=== PATIENT | female | born 1965 | race Caucasian/White ===

== ENCOUNTER 2017-05-14 21:20 | Inpatient (IN) | payer BC ==
[~2017-05-14] VITALS: Ht 172.7 cm; Wt 69.5 kg
[~2017-05-14 21:20] MED LIST: ALBUAER2 INH; CHOL100040 PO; FERR325T51 PO; FURO-85 PO; GABA-113 PO; SPIR25TA PO
[2017-05-14] MEDS ORDERED: LORAZEPAM 2 MG/ML 1 ML VIAL IV STA (21:43)
[2017-05-14] MEDS ORDERED: SODIUM CHLORIDE 0.9% 1000ML 1,000 ML IV STA (21:44)
[2017-05-14] MEDS ORDERED: OCTREOTIDE IV BOLUS & DRIP IV STA (21:45)
[2017-05-14] MEDS ORDERED: PANTOprazole INJ 80 MG in DEXTROSE 5% 100ML IV STA (21:50)
--- NOTE | 2017-05-14 21:52 | EMERGENCY ROOM VISIT NOTE ---
History Report prepared by Sridevi: Varghese Chaudhry Under the Supervision of: Dr. Jasno Cash M.D. First contact with patient: 21:36 Chief Complaint: GI ASSESSMENT Stated Complaint: VOMITING BLOOD SINCE 1900 History of Present Illness The patient is a 52 year old female who presents to the Emergency Room with complaints of an episode of hematemesis occurring 3 hours ago. The patient states that she started vomiting normally today, but notes that the blood then turned to bright red blood. She reports that she thinks that she threw up 5 cups of blood. 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 She notes that she has been drinking today. She reports that she is not taking any blood thinners and aspirin, but states that she is taking ibuprofen for a fall occurring last week. She notes that she did not hit her head or lose consciousness following her fall. She denies any current nausea, blood in her stool, and headache. Source of History: patient Onset: 3 hours ago Position: abdomen Symptom Intensity: threw up 5 cups of blood Quality: other (hematemesis) Timing: other (an episode) Associated Symptoms: No headache, No nausea Note: She notes that she has been drinking alcohol. She denies any blood in her stool. Review of Systems See HPI for pertinent positives & negatives. A total of 10 systems reviewed and were otherwise negative. Past Medical & Surgical Medical Problems: (1) Cirrhosis of liver with ascites (2) Esophageal varices with bleeding (3) Tumor of uterus (4) Varices of esophagus determined by endoscopy Surgical Problems: (1) H/O: hysterectomy Family History Cancer Hypertension Social History Smoking Status: Current Every Day Smoker Alcohol Use: other Marital Status: Housing Status: lives with significant other Occupation Status: employed Current/Historical Medications Scheduled Gabapentin (Gabapentin), 600 MG PO TID Multivitamin (Multivitamin), 1 TAB PO DAILY [Normanal], 1 DOSE PO DAILY Allergies Coded Allergies: Ciprofloxacin (Unverified Allergy, Unknown, RASH, 10/04/15) Physical Exam Vital Signs Date Time Temp Pulse Resp B/P (MAP) Pulse Ox O2 Delivery O2 Flow Rate FiO2 05/14/17 23:39 114 19 117/71 95 Room Air 05/14/17 22:31 103 24 134/76 93 Room Air 05/14/17 22:22 100 05/14/17 22:03 Room Air 05/14/17 22:03 102 20 109/67 98 05/14/17 21:23 36.6 123 18 116/73 98 Room Air Physical Exam GENERAL: Patient is anxious appearing, tremulous, and in mild distress. Smells of alcohol. HEENT: No acute trauma, normocephalic atraumatic, mucous membranes moist, no nasal congestion, no scleral icterus. NECK: No stridor, no adenopathy, no meningismus, trachea is midline. LUNGS: No dyspnea. Clear to auscultation and equal bilaterally. No wheeze, no rhonchi. HEART: Regular rhythm and tachycardic. No murmurs, rubs, gallops appreciated. ABDOMEN: Soft, nontender, bowel sounds positive, no masses appreciated, no peritonitis. BACK: No midline tenderness, no CVA tenderness EXTREMITIES: Normal motion all extremities, no cyanosis, no edema. NEUROLOGIC: Alert and oriented, no acute motor or sensory deficits, no focal weakness, cranial nerves grossly intact. Fine tremor. SKIN: No rash, no jaundice, no diaphoresis. Medical Decision & Procedures Laboratory Results 05/14/17 21:56 Red Blood Count 2.57, Mean Corpuscular Volume 113.2, Mean Corpuscular Hemoglobin 37.7, Mean Corpuscular Hemoglobin Concent 33.3, Mean Platelet Volume 11.5, Neutrophils (%) (Auto) 68.9, Lymphocytes (%) (Auto) 18.4, Monocytes (%) ( Auto) 10.6, Eosinophils (%) (Auto) 1.2, Basophils (%) (Auto) 0.7, Neutrophils # (Auto) 3.96, Lymphocytes # (Auto) 1.06, Monocytes # (Auto) 0.61, Eosinophils # ( Auto) 0.07, Basophils # (Auto) 0.04 05/14/17 21:56 Test 05/14/17 21:56 05/14/17 22:07 White Blood Count 5.75 K/uL (4.8-10.8) Red Blood Count 2.57 M/uL (4.2-5.4) Hemoglobin 9.7 g/dL (12.0-16.0) Hematocrit 29.1 % (37-47) Mean Corpuscular Volume 113.2 fL (80-100) Mean Corpuscular Hemoglobin 37.7 pg (25-34) Mean Corpuscular Hemoglobin Concent 33.3 g/dl (32-36) Platelet Count 44 K/uL (130-400) Mean Platelet Volume 11.5 fL (7.4-10.4) Neutrophils (%) (Auto) 68.9 % Lymphocytes (%) (Auto) 18.4 % Monocytes (%) (Auto) 10.6 % Eosinophils (%) (Auto) 1.2 % Basophils (%) (Auto) 0.7 % Neutrophils # (Auto) 3.96 K/uL (1.4-6.5) Lymphocytes # (Auto) 1.06 K/uL (1.2-3.4) Monocytes # (Auto) 0.61 K/uL (0.11-0.59) Eosinophils # (Auto) 0.07 K/uL (0-0.5) Basophils # (Auto) 0.04 K/uL (0-0.2) RDW Standard Deviation 55.4 fL (36.4-46.3) RDW Coefficient of Variation 13.7 % (11.5-14.5) Immature Granulocyte % (Auto) 0.2 % Immature Granulocyte # (Auto) 0.01 K/uL (0.00-0.02) Platelet Estimate DECREASED Red Blood Cell Morphology Unremarkable Prothrombin Time 13.5 SECONDS (9.0-12.0) Prothromb Time International Ratio 1.3 (0.9-1.1) Activated Partial Thromboplast Time 25.9 SECONDS (21.0-31.0) Partial Thromboplastin Ratio 1.0 Est Creatinine Clear Calc Drug Dose 91.9 ml/min Estimated GFR () 110.5 Estimated GFR (Non- 95.4 BUN/Creatinine Ratio 21.3 (10-20) Calcium Level 8.1 mg/dl (8.5-10.1) Total Bilirubin 2.6 mg/dl (0.2-1) Direct Bilirubin 1.8 mg/dl (0-0.2) Aspartate Amino Transf (AST/SGOT) 137 U/L (15-37) Alanine Aminotransferase (ALT/SGPT) 33 U/L (12-78) Alkaline Phosphatase 222 U/L (45-117) Total Protein 7.0 gm/dl (6.4-8.2) Albumin 3.0 gm/dl (3.4-5.0) Lipase 202 U/L (73-393) Ethyl Alcohol mg/dL 264.0 mg/dl (0-3) Bedside Hemoglobin 9.9 g/dl (12.0-16.0) Bedside Hematocrit 29 % (37-47) Bedside Sodium 142 mEq/L (135-144) Bedside Potassium 3.4 mEq/L (3.3-5.0) Bedside Chloride 99 mEq/L (101-112) Bedside Total CO2 24 mEq/l (24-31) Anion Gap 23.0 mmol/L (16-25) Bedside Blood Urea Nitrogen 13 mg/dl (7-18) Bedside Creatinine 1.1 mg/dl (0.6-1.3) Bedside Glucose (other) 166 mg/dl (70-99) Bedside Ionized Calcium (Donnell) 1.01 mmol/l (1.12-1.32) Laboratory results as reviewed by me. Medications Administered Medications (Trade) Dose Ordered Sig/Shama Route Start Time Stop Time Status Last Admin Dose Admin Lorazepam (Ativan Inj) 1 mg NOW STAT IV 05/14/17 21:43 05/14/17 21:45 DC 05/14/17 22:12 1 MG Sodium Chloride 1,000 ml @ 999 mls/hr Q1H1M STAT IV 05/14/17 21:44 05/14/17 22:44 DC 05/14/17 22:05 999 MLS/HR Multivitamins 10 ml/Thiamine HCl 100 mg/Folic Acid 1 mg/Sodium Chloride 1,011.2 ml @ 250 mls/ hr Q4H3M ONCE IV 05/14/17 22:00 05/15/17 02:02 05/14/17 22:19 250 MLS/HR Pantoprazole Sodium 80 mg/ Dextrose 120 ml @ 480 mls/hr NOW STAT IV 05/14/17 21:50 05/14/17 22:04 DC 05/14/17 22:23 480 MLS/HR Pantoprazole Sodium 40 mg/ Dextrose 100 ml @ 20 mls/hr Q5H IV 05/14/17 22:00 05/15/17 02:59 05/14/17 22:00 20 MLS/HR Octreotide Acetate (Sandostatin Bolus From Bag) 100 mcg ONE ONCE IV 05/14/17 22:00 05/14/17 22:01 DC 05/14/17 22:00 100 MCG Octreotide Acetate 500 mcg/ Sodium Chloride 105 ml @ 10 mls/hr [id number] IV 05/14/17 22:00 05/15/17 08:29 05/14/17 22:22 10 MLS/HR ECG Indication: other (anemia) Rate (beats per minute): 105 Rhythm: sinus tachycardia Findings: no ectopy, other (No ischemia, QTC 459) ED Course 2137: The patient was evaluated in room C5. A complete history and physical exam was performed. 2142: Pantoprazole Sodium 1 ea IV, Lorazepam 1mg IV 2143: Sodium Chloride 1000 ml @ 999 mls/hr 2144: Octreotide Acetate 1 ea IV 0: Pantoprazole Sodium 80 mg/Dextrose 120 ml @ 480 mls/hr IV 2155: I reevaluated and updated the patient. She is mildly tachycardic and about to get medication. 0: Octreotide Acetate 100mcg IV 2222: I spoke to Dr. Cotton - Gastroenterology, [facility]. He agrees with the current treatment plan and to hold on emergent endoscopy unless the patient's condition worsens. 6: Upon reevaluation, the patient is stable. Discussed results and treatment plan with the patient. She verbalized understanding and agreement with the treatment plan. Discussed the patient's case with Dr. Licona - Hospitalist , [facility]. The patient will be evaluated for further treatment and disposition. 2306: I discussed the patient's case with Dr. Garzon - Lead Application Architect, [facility]. 0001: I rediscussed the case with Dr. Licona. He will transfuse the patient with blood. Medical Decision Differential diagnosis: Etiologies such as diverticulosis, AVM, coagulopathy, colitis, inflammatory bowel disease, malignancy, Delmy-Adams tear, esophagitis, peptic ulcer disease , variceal bleed, gastritis, epistaxis, fissure, hemorrhoids, as well as others were entertained. 52 yr old alcoholic female who admits history of cirrhosis with previous banding of varices. She was drinking today per usual for last 9 months when developed nausea/vomiting around 7 pm. After vomiting several times she ended up vomiting about 5 cups full of bright red blood and came to ED. On arrival mildly tachycardic but also quite tremulous. Smells heavily of etoh though awake, alert, oriented. Given Ativan for both nausea/vomiting and for shakes. Fluids for dehydration. Immediately ordered octreotide and Protonix gtt given history along with getting Type/Cross for 2 PRBC held. Furthermore instructed nursing to obtain at least 2 IVs. Given Banana bag (thiamine/folate) along with fluid bolus as she is tachycardic. She was found to be anemic on initial labs and HR improving. Reviewed with GI who are aware of patient, but given stabilizing vitals, and no further vomiting at this time will hold on emergent endoscopy. Labs further reveal thrombocytopenia as well and liver test abnormalities. I have discussed the case at length with ICU and Hospitalist and plan to go to ICU with repeat H&H prior to this. Will hold Plt transfusion for now as well. Hbg returned 2 points lower and I discussed case with Hospitalist who notes he will order transfusion and admission. Medication Reconcilliation Current Medication List: was personally reviewed by me Blood Pressure Screening Patient's blood pressure: Elevated blood pressure Will be monitored by hospitalist. Consults Time Called: [phone] Consulting Physician: Dr. Cotton - Gastroenterology, [facility] Returned Call: [phone] He agrees with the current treatment plan and to hold on emergent endoscopy unless the patient's condition worsens. Additional Consults: Time Called: [phone] Consulted Physician: Dr. Licona - Hospitalist, [facility] Returned Call: [phone] Additional Comments: Discussed the patient's case. The patient will be evaluated for further treatment and disposition. 0002: I rediscussed the case with Dr. Licona. He will transfuse the patient with blood. Time Called: [phone] Consulted Physician: Dr. Garzon - Lead Application Architect, [facility] Returned Call: [phone] Additional Comments: Discussed the patient's case. Impression Primary Impression: Upper GI bleed Additional Impressions: Anemia Thrombocytopenia Alcohol intoxication Alcoholic cirrhosis Critical Care I have personally spent greater than 35 minutes of critical care time in the direct management of this patient. This was a life/limb threatening event. This includes time spent evaluating patient, direct bedside care, chart review, placing orders, interpretation of diagnostic studies, discussion with consultants, patient, and family members, as well as other required patient management activities. This 35 minutes is in excess of all separately billable procedures. Scribe Attestation The scribe's documentation has been prepared under my direction and personally reviewed by me in its entirety. I confirm that the note above accurately reflects all work, treatment, procedures, and medical decision making performed by me. Departure Information Dispostion Being Evaluated By Hospitalist Referrals Linn Khanna M.D. (PCP) Patient Instructions My [facility] Problem Qualifiers
[2017-05-14] MEDS ORDERED: MULTI-VITAMIN INFUSION INJ 10 ML, THIAMINE HCL INJ 100 MG, FoLIC ACID INJ 1 MG in SODIU... IV ONE (22:00)
[2017-05-14] MEDS ORDERED: OCTREOTIDE ACETATE INJ 500 MCG in NSS 100ML IV SCH (22:00)
[2017-05-14] MEDS ORDERED: PANTOprazole INJ 40 MG in DEXTROSE 5% 100ML IV SCH (22:00)
[2017-05-14] MEDS ORDERED: OCTREOTIDE BOLUS FROM BAG IV ONE (22:00)
[2017-05-14 22:19] LABS: ISTAT CREATININE 1.1 mg/dl (0.6-1.3); ISTAT IONIZED CALCIUM 1.01 mmol/l (1.12-1.32); ISTAT POTASSIUM 3.4 mEq/L (3.3-5.0)
[2017-05-14 22:26] LABS: INR 1.3 (0.9-1.1); PTT PATIENT 25.9 SECONDS (21.0-31.0)
[2017-05-14 22:32] LABS: CALCIUM 8.1 mg/dl (8.5-10.1); CREATININE 0.73 mg/dl (0.60-1.20); POTASSIUM 3.4 mmol/L (3.5-5.1)
[2017-05-14 22:43] LABS: BASO % 0.7 %; BASO ABS # 0.04 K/uL (0-0.2); EOS % 1.2 %; EOS ABS # 0.07 K/uL (0-0.5); HEMATOCRIT 29.1 % (37-47); HEMOGLOBIN 9.7 g/dL (12.0-16.0); IG# 0.01 K/uL (0.00-0.02); LYMPH % 18.4 %; LYMPH ABS # 1.06 K/uL (1.2-3.4); MEAN CELL VOLUME 113.2 fL (80-100); MEAN CORPUSCULAR HEMOGLOBIN 37.7 pg (25-34); MEAN CORPUSCULAR HGB CONC 33.3 g/dl (32-36); MEAN PLATELET VOLUME 11.5 fL (7.4-10.4); MONO % 10.6 %; MONO ABS # 0.61 K/uL (0.11-0.59); NEUT % 68.9 %; NEUT ABS # 3.96 K/uL (1.4-6.5); PLATELET COUNT 44 K/uL (130-400); RED CELL DISTRIBUTION WIDTH CV 13.7 % (11.5-14.5); RED CELL DISTRIBUTION WIDTH SD 55.4 fL (36.4-46.3); WHITE BLOOD COUNT 5.75 K/uL (4.8-10.8)
[2017-05-14] MEDS ORDERED: MULT-506 PO (22:53)
[2017-05-14] MEDS ORDERED: [UNRECOGNIZED DRUG - OTHER] PO (22:53)
[2017-05-14] MEDS ORDERED: NRN600 PO (22:53)
[2017-05-14 23:46] LABS: HEMATOCRIT 22.6 % (37-47); HEMOGLOBIN 7.5 g/dL (12.0-16.0)
[2017-05-15] VITALS (58 sets, daily range): BP systolic 81–202; BP diastolic 56–119; PULSE 94–143; TEMP 36.8–37.7; O2SAT 89–99; Ht 172.7 cm; Wt 69.5 kg
[2017-05-15] MEDS ORDERED: ICU PROTOCOL FOR HYPERGLYCEMIA PRN (00:30)
[2017-05-15] MEDS ORDERED: OCTREOTIDE IV BOLUS & DRIP IV STA (00:30)
[2017-05-15 00:54] LABS: HEMATOCRIT 22.2 % (37-47); HEMOGLOBIN 7.3 g/dL (12.0-16.0)
--- NOTE | 2017-05-15 01:05 | NUR ---
A: PT RECEIVED INTO ROOM E107. PT SELF TRANSFERRED FROM LITER TO BED. MONITOR APPLIED, GOWN CHANGED, VITAL SIGNS AND WEIGHT OBTAINED. ADMISSION PACKET, FALL AGREEMENT, AND CODE WORD COMPLETED. REFER TO EMR FOR FULL HEAD TO TOE ASSESSMENT. PT DENIES COMPLAINTS OF PAIN. PT ORIENTED TO ROOM, CALL LERMA SYSTEM, HOSPITAL ENVIRONMENT, AND UNIT. CALL [facility] WITHIN REACH, CONTINUED CARE BY PRIMARY RN.
[2017-05-15] MEDS ORDERED: MULTI-VITAMIN INFUSION INJ 10 ML, THIAMINE HCL INJ 100 MG, FoLIC ACID INJ 1 MG in SODIU... IV ONE (02:00)
--- NOTE | 2017-05-15 02:00 | NUR ---
PATIENT NOW RECEIVING PRBC TRANSFUSION. MONITORING VS PER POLICY. VS STABLE AT THIS TIME. NO C/O SOB, CHEST PAIN OR FLANK PAIN. CALL [facility] IN REACH. BED IN LOW POSITION. WILL CONTINUE TO MONITOR THIS ICU PATIENT.
[2017-05-15] MEDS: PANTOprazole INJ 40 MG in DEXTROSE 5% 100ML IV SCH ×5 (03:24→20:55)
--- NOTE | 2017-05-15 03:58 | History and Physical ---
History & Physical Date & Time of Service: May 15, 2017 at 03:38. The patient was seen and examined on May 14, 2017 Chief Complaint: Esophageal Varices With Bleeding, Thrombocytopenia Primary Care Physician: Linn Khanna M.D. History of Present Illness Source: patient The patient is a 52-year-old female who presents to the emergency department with a single episode of hematemesis of approximately 5 cups of blood approximately 3 hours prior to arrival. She began vomiting earlier in the day, without blood. She does have a history of alcoholic liver cirrhosis and banded esophageal varices. She reports that she was drinking heavily today. She has not been on aspirin or blood thinners, but is taking ibuprofen for a fall that occurred last week. Past Medical/Surgical History Medical Problems: (1) Cirrhosis of liver with ascites Status: Chronic (2) Tumor of uterus Status: Chronic Family History Cancer Hypertension Social History Smoking Status: Current Every Day Smoker Smokeless Tobacco Use: No Alcohol Use: heavy Drug Use: none Marital Status: Housing status: lives with family Occupational Status: employed Immunizations History of Influenza Vaccine: Unknown History of Tetanus Vaccine?: Unknown History of Pneumococcal: Unknown History of Hepatitis B Vaccine: Unknown Multi-Drug Resistant Organisms History of MDRO: No Allergies Coded Allergies: Ciprofloxacin (Unverified Allergy, Unknown, RASH, 10/04/15) Home Medications Scheduled Gabapentin (Gabapentin), 600 MG PO TID Multivitamin (Multivitamin), 1 TAB PO DAILY [Normanal], 1 DOSE PO DAILY Review of Systems The patient denies chest pain, palpitations, shortness of breath, cough, lower extremity swelling, vision change, hearing change, sore throat, fevers, chills, sweats, weight change, diarrhea or constipation, pelvic pain, blood in urine or stool, dysuria, urinary frequency or urgency, lightheadedness , dizziness, headache, memory loss, loss of consciousness, rash, imbalance, focal or generalized weakness, numbness or tingling in arms or legs, generalized arthralgias or myalgias, or night sweats. The review of systems is otherwise negative other than for that already noted above, and at least 10 systems have been reviewed. Physical Exam Vital Signs Date Time Temp Pulse Resp B/P (MAP) Pulse Ox O2 Delivery O2 Flow Rate FiO2 05/15/17 02:46 37.1 111 16 105/64 (78) 95 Room Air 05/15/17 01:52 37.4 123 18 110/57 95 05/15/17 01:05 37.2 111 14 102/58 98 Room Air 05/15/17 00:45 122 19 95 05/15/17 00:31 106/61 05/15/17 00:15 107 21 05/15/17 00:01 117/68 05/14/17 23:45 113 20 05/14/17 23:39 114 19 117/71 95 Room Air 05/14/17 22:31 103 24 134/76 93 Room Air 05/14/17 22:22 100 05/14/17 22:03 Room Air 05/14/17 22:03 102 20 109/67 98 05/14/17 21:23 36.6 123 18 116/73 98 Room Air The patient is awake, well-developed and adequately nourished, alert and oriented 3, normocephalic and atraumatic, lying in bed and in no acute distress. HEENT--PERRL, EOMI, mucous membranes and oropharynx dry. Neck--supple, no JVD or bruits, thyroid normal, trachea midline, no adenopathy. Heart--normal S1 and S2, no extra beats, no murmurs, rubs or gallops. Lungs--clear bilaterally with good air movement, no respiratory distress, no accessory muscle use. Abdomen--normal bowel sounds and soft, nontender and nondistended, no hernias or masses, no organomegaly. Extremities--no cyanosis, clubbing or edema. There are good distal pulses b/l. Dermatologic--normal skin turgor, normal color, warm and dry, no abnormal lymph nodes, no rash. Neurologic--cranial nerves II through XII grossly intact. Rheumatologic--normal range of motion. Psychiatric--normal affect. Diagnostics Laboratory Results Results Past 24 Hours Test 05/14/17 21:56 05/14/17 22:07 05/14/17 23:35 05/15/17 00:47 Range/Units White Blood Count 5.75 4.8-10.8 K/uL Red Blood Count 2.57 4.2-5.4 M/uL Hemoglobin 9.7 7.5 7.3 12.0-16.0 g/dL Hematocrit 29.1 22.6 22.2 37-47 % Mean Corpuscular Volume 113.2 80-100 fL Mean Corpuscular Hemoglobin 37.7 25-34 pg Mean Corpuscular Hemoglobin Concent 33.3 32-36 g/dl Platelet Count 44 130-400 K/uL Mean Platelet Volume 11.5 7.4-10.4 fL Neutrophils (%) (Auto) 68.9 % Lymphocytes (%) (Auto) 18.4 % Monocytes (%) (Auto) 10.6 % Eosinophils (%) (Auto) 1.2 % Basophils (%) (Auto) 0.7 % Neutrophils # (Auto) 3.96 1.4-6.5 K/uL Lymphocytes # (Auto) 1.06 1.2-3.4 K/uL Monocytes # (Auto) 0.61 0.11-0.59 K/uL Eosinophils # (Auto) 0.07 0-0.5 K/uL Basophils # (Auto) 0.04 0-0.2 K/uL RDW Standard Deviation 55.4 36.4-46.3 fL RDW Coefficient of Variation 13.7 11.5-14.5 % Immature Granulocyte % (Auto) 0.2 % Immature Granulocyte # (Auto) 0.01 0.00-0.02 K/uL Platelet Estimate DECREASED Red Blood Cell Morphology Unremarkable Prothrombin Time 13.5 9.0-12.0 SECONDS Prothromb Time International Ratio 1.3 0.9-1.1 Activated Partial Thromboplast Time 25.9 21.0-31.0 SECONDS Partial Thromboplastin Ratio 1.0 Sodium Level 139 136-145 mmol/L Potassium Level 3.4 3.5-5.1 mmol/L Chloride Level 102 98-107 mmol/L Carbon Dioxide Level 25 21-32 mmol/L Anion Gap 12.0 23.0 16-25 mmol/L Blood Urea Nitrogen 16 7-18 mg/dl Creatinine 0.73 0.60-1.20 mg/dl Est Creatinine Clear Calc Drug Dose 91.9 ml/min Estimated GFR () 110.5 Estimated GFR (Non- 95.4 BUN/Creatinine Ratio 21.3 10-20 Random Glucose 162 70-99 mg/dl Calcium Level 8.1 8.5-10.1 mg/dl Total Bilirubin 2.6 0.2-1 mg/dl Direct Bilirubin 1.8 0-0.2 mg/dl Aspartate Amino Transf (AST/SGOT) 137 15-37 U/L Alanine Aminotransferase (ALT/SGPT) 33 12-78 U/L Alkaline Phosphatase 222 45-117 U/L Total Protein 7.0 6.4-8.2 gm/dl Albumin 3.0 3.4-5.0 gm/dl Lipase 202 73-393 U/L Ethyl Alcohol mg/dL 264.0 0-3 mg/dl Bedside Hemoglobin 9.9 12.0-16.0 g/dl Bedside Hematocrit 29 37-47 % Bedside Sodium 142 135-144 mEq/L Bedside Potassium 3.4 3.3-5.0 mEq/L Bedside Chloride 99 101-112 mEq/L Bedside Total CO2 24 24-31 mEq/l Bedside Blood Urea Nitrogen 13 7-18 mg/dl Bedside Creatinine 1.1 0.6-1.3 mg/dl Bedside Glucose (other) 166 70-99 mg/dl Bedside Ionized Calcium (Donnell) 1.01 1.12-1.32 mmol/l Microbiology Results 05/15/17 MRSA DNA Surveillance Screen - Final, Complete Specimen Negative for MRSA by DNA Probe EKG EKG shows sinus tachycardia at 105 bpm, there are no acute ST-T changes. Impression Assessment and Plan Hematemesis/alcoholic liver cirrhosis/history of banded esophageal varices/mild coagulopathy/progressively worsening anemia-- Hemoglobin was initially 9.7, but on repeat before rehydration decreased to 7.5. Patient did not have any further bleeding while in the ED. She'll be admitted to the intensive care unit. Continue Protonix drip and octreotide drip begun in the emergency department. Banana bag in the morning, followed by IV fluids in the afternoon. Transfuse 2 units PRBCs and keep 2 on hold at all times. Dr. Cotton from gastroenterology is aware of the patient. Dr. Patiño from intensive care medicine is aware of the patient. Place on alcohol withdrawal AWSS program with IV Ativan. Order CT of abdomen and pelvis without contrast to compare to September 2015 for possible progression. Nothing by mouth status Coagulopathy-- INR was 1.3 upon admission Repeat serially in the a.m. If rises further we will give vitamin K. Thrombocytopenia-- Avoid all potential agents that can affect platelet function and number. Serial laboratories to follow. Dehydration/hypokalemia-- Place on normal saline with KCl 20 mEq at 50 ML's per hour. Tobacco use disorder Place on NicoDerm patch Hyperglycemia-- Glucose was 162 on admission Check a hemoglobin A1c Level of Care Critical Care Advanced Directives Existing Living Will: Yes Existing Power of Software Engineer Mobile: Yes Resuscitation Status FULL RESUSCITATION VTE Prophylaxis VTE Risk Assessment Done? Y/N: Yes Risk Level: Moderate Given or contraindicated: SCD's Social Service Consult None Apply Note Total Time: Critical Care 30 - 74 minutes
--- NOTE | 2017-05-15 04:00 | NUR ---
PATIENT NO C/O SOB, CHEST PAIN OR FLANK PAIN. VS ARE STABLE. SEE EMR FOR FULL PHYSICAL ASSESSMENT. CALL [facility] IN REACH. BED IN LOW POSITION. WILL CONTINUE TO MONITOR THIS ICU PATIENT
[2017-05-15] MEDS ORDERED: DiphenhydrAMINE HCL 50 MG/ML VIAL ONE (04:17)
--- NOTE | 2017-05-15 04:18 | NUR ---
S/W PROVIDER KRISTY. GAVE TEMP FLUCTUATIONS. HE ADV GIVE 25MG BENADRYL IV NOW, AND ADD ORDER FOR 25MG BENADRYL IV Q6H PRN. READ BACK ORDER. CONFIRMED OKAY TO TAKE PATIENT TO C/T ONCE TRANSFUSION IS COMPLETE. CONFIRMED. NOTHING FURTHER AT THIS TIME.
[2017-05-15] MEDS ORDERED: DiphenhydrAMINE HCL 50 MG/ML VIAL IV STA (04:24)
[2017-05-15] MEDS ORDERED: DiphenhydrAMINE HCL 50 MG/ML VIAL IV PRN (04:30)
[2017-05-15] MEDS ORDERED: NURSING VERBAL MED ORDER ONE (04:30)
--- NOTE | 2017-05-15 06:00 | NUR ---
PATIENT VOMIT BLOOD. CALLED TO PROVIDER KRISTY. HE WILL ASSESS PATIENT
[2017-05-15] MEDS: OCTREOTIDE ACETATE INJ 500 MCG in NSS 100ML IV SCH ×2 (06:41→16:22)
[2017-05-15] MEDS ORDERED: ONDANSETRON INJ 2 MG/ML 2 ML VIAL IV PRN (06:45)
[2017-05-15] MEDS ORDERED: PROMETHAZINE HCL INJ 25 MG in SODIUM CHLORIDE 0.9% 50ML 50 ML IV PRN (06:45)
[2017-05-15] MEDS ORDERED: PHYTONADIONE INJ 10 MG in SODIUM CHLORIDE 0.9% 50ML 50 ML IV ONE (06:45)
[2017-05-15 07:09] LABS: HEMATOCRIT 27.6 % (37-47); HEMOGLOBIN 9.3 g/dL (12.0-16.0)
[2017-05-15] MEDS: NICOTINE 14 MG/24 HR TDSY TD SCH (07:32)
[2017-05-15 07:35] LABS: CKMB 0.7 ng/ml (0.5-3.6)
[2017-05-15] MEDS: LORAZEPAM 2 MG/ML 1 ML VIAL IV PRN ×4 (07:37→22:45)
[2017-05-15] MEDS ORDERED: LORAZEPAM 2 MG/ML 1 ML VIAL IV ONE (07:45)
[2017-05-15 07:56] LABS: MEAN CORPUSCULAR HEMOGLOBIN 33.3 pg (25-34); PLATELET COUNT 24 K/uL (130-400); WHITE BLOOD COUNT 4.07 K/uL (4.8-10.8)
[2017-05-15] MEDS: NSS + 20MEQ KCL 1000ML 1,000 ML IV SCH ×2 (07:57→16:21)
--- NOTE | 2017-05-15 08:02 | Critical Care Consultation ---
Critical Care Consultation Date of Consultation: May 15, 2017. Attending Physician: Ernie Licona M.D. Reason for Consultation: UPPER GI BLEED/ESOPHAGEAL VARICES. History of Present Illness 52 year old female, continue to use alcohol and smoking, was brought in to the ER with an episode of upper GI bleed/Vomitting blood. According to the patient, had few cups of blood vomitted yesterday evening after the Price dinner and alcoho use. Was transfused one unit of PRBC and hemodynamically stable. She also vomited blood this am, remains hemodynamically stable. Denies any blood in the stool. H/O thrombocytopaenia 44 in the past. This am the platelets are 7 and she will be transfused with one unit of PLT and also FFP. The patient was also evaluated by GI and is scheduled for the EGD this am. Denies any headache or dizziness or chest pain or abdominal pain. Past Medical/Surgical History Alcohol Intoxication/Alcohol abuse. Esophageal varices. Previous H/O EGD and banding. Previous H/O DTs. Alcoholic Cirrhosis of the Liver. Thrombocytopenia. Anemia. Uterine/Pelvic mass. Family History Cancer Hypertension Social History Smoking Status: Current Every Day Smoker Smokeless Tobacco Use: No Alcohol Use: heavy Drug Use: none Marital Status: Housing Status: lives with significant other Occupation Status: employed Allergies Coded Allergies: Ciprofloxacin (Unverified Allergy, Unknown, RASH, 10/04/15) Home Medications Scheduled Gabapentin (Gabapentin), 600 MG PO TID Multivitamin (Multivitamin), 1 TAB PO DAILY [Normanal], 1 DOSE PO DAILY Current Inpatient Medications Current Inpatient Medications Medications (Trade) Dose Ordered Sig/Shama Route Start Time Stop Time Status Last Admin Dose Admin Octreotide Acetate 500 mcg/ Sodium Chloride 105 ml @ 10 mls/hr [id number] IV 05/14/17 22:00 05/15/17 08:29 05/14/17 22:22 10 MLS/HR Potassium Chloride/Sodium Chloride 1,000 ml @ 100 mls/hr Q10H IV 05/15/17 12:30 06/14/17 12:29 Miscellaneous Information (Icu Protocol For Hyperglycemia) 1 ea PRN PRN N/A 05/15/17 00:30 05/17/17 00:29 Multivitamins 10 ml/Thiamine HCl 100 mg/Folic Acid 1 mg/Sodium Chloride 1,011.2 ml @ 100 mls/ hr Q10H7M ONCE IV 05/15/17 02:00 05/15/17 12:06 Lorazepam (Ativan Inj) PRN Dosing -Active Protocol Q1H PRN IV 05/15/17 00:45 06/14/17 00:44 05/15/17 07:37 2 MG Octreotide Acetate 500 mcg/ Sodium Chloride 105 ml @ 10 mls/hr [id number] IV 05/15/17 08:15 06/14/17 08:14 05/15/17 06:41 10 MLS/HR Pantoprazole Sodium 40 mg/ Dextrose 100 ml @ 20 mls/hr Q5H IV 05/15/17 02:30 06/14/17 02:29 05/15/17 07:31 20 MLS/HR Nicotine (Nicoderm Cq 14MG Patch) 1 patch QAM TD 05/15/17 09:00 06/14/17 08:59 05/15/17 07:32 1 PATCH Miscellaneous (Remove Nicoderm Patch) 1 ea HS N/A 05/15/17 21:00 06/14/17 20:59 Diphenhydramine HCl (Benadryl Inj) 25 mg Q6H PRN IV 05/15/17 04:30 06/14/17 04:29 Ondansetron HCl (Zofran Inj) 4 mg Q6H PRN IV 05/15/17 06:45 06/14/17 06:44 Promethazine HCl 25 mg/Sodium Chloride 51 ml @ 204 mls/hr Q6H PRN IV 05/15/17 06:45 06/14/17 06:44 Lorazepam (Ativan Inj) 2 mg NOW ONCE IV 05/15/17 07:45 05/15/17 07:46 Review of Systems Respiratory: + cough Abdomen: + nausea, + vomiting, + GI bleeding Physical Exam Date Time Temp Pulse Resp B/P (MAP) Pulse Ox O2 Delivery O2 Flow Rate FiO2 05/15/17 07:28 37.1 118 19 148/90 95 05/15/17 06:31 112 23 134/87 (103) 94 05/15/17 06:24 149/96 (113) 05/15/17 06:13 104 20 142/88 (106) 92 05/15/17 06:03 124 23 81/56 (64) 95 05/15/17 05:54 95 20 84/63 (70) 95 05/15/17 05:47 109 18 202/119 (146) 94 05/15/17 05:32 37.1 98 17 183/117 (139) 94 05/15/17 05:30 109 17 95 05/15/17 05:02 36.9 110 15 114/71 (85) 95 Room Air 05/15/17 04:55 Room Air 05/15/17 04:46 110 19 127/84 (98) 98 Room Air 05/15/17 04:31 37.0 116 19 118/73 (88) 94 Room Air 05/15/17 04:26 112 19 93 05/15/17 04:16 37.5 122 19 113/72 (86) 93 Room Air 05/15/17 04:10 37.5 118 16 123/66 93 05/15/17 04:06 127 19 123/66 (85) 95 Room Air 05/15/17 03:46 37.0 121 17 107/72 (84) 94 Room Air 05/15/17 03:45 37.0 110 18 107/72 93 05/15/17 03:16 37.7 101 19 110/63 (79) 93 Room Air 05/15/17 02:46 37.1 111 16 105/64 (78) 95 Room Air 05/15/17 02:31 36.9 126 21 112/65 (81) 96 Room Air 05/15/17 02:16 36.8 107 19 107/68 (81) 89 Room Air 05/15/17 02:01 37.0 110 22 106/58 (74) 93 Room Air 05/15/17 01:52 37.4 123 18 110/57 95 05/15/17 01:05 37.2 111 14 102/58 98 Room Air 05/15/17 00:45 122 19 95 05/15/17 00:31 106/61 05/15/17 00:15 107 21 05/15/17 00:01 117/68 05/14/17 23:45 113 20 05/14/17 23:39 114 19 117/71 95 Room Air 05/14/17 22:31 103 24 134/76 93 Room Air 05/14/17 22:22 100 05/14/17 22:03 Room Air 05/14/17 22:03 102 20 109/67 98 05/14/17 21:23 36.6 123 18 116/73 98 Room Air General Appearance: well-appearing, no apparent distress Head: normocephalic Eyes: PERRLA ENT: normal ear exam Neck: normal range of motion, no tenderness, trachea midline, no stridor, supple, no thyromegaly, no lymphadenopathy Respiratory: breath sounds normal, clear to auscultation, clear to percussion, no respiratory distress, no tenderness Cardiovasular: other (Tachycardia) Abdomen: non tender, normal bowel sounds, no rebound, no masses, no guarding, no organomegaly Genitourinary - Female: other (Not examined.) Back: normal range of motion Upper Extremities: no edema, no deformity, normal ROM Lower Extremities: no edema, no deformity, normal ROM Pulses: brachial (R) (2+), brachial (L) (2+), radial (R) (2+), radial (L) (2+) , dorsalis pedis (R) (2+), dorsalis pedis (L) (2+) Neuro: alert, oriented x 3, normal motor exam, normal sensation Psychiatric: normal affect, no suicidal ideation Laboratory Results Last 24 Hours Test 05/14/17 21:56 05/14/17 22:07 05/14/17 23:35 05/15/17 00:47 White Blood Count 5.75 K/uL Red Blood Count 2.57 M/uL Hemoglobin 9.7 g/dL 7.5 g/dL 7.3 g/dL Hematocrit 29.1 % 22.6 % 22.2 % Mean Corpuscular Volume 113.2 fL Mean Corpuscular Hemoglobin 37.7 pg Mean Corpuscular Hemoglobin Concent 33.3 g/dl Platelet Count 44 K/uL Mean Platelet Volume 11.5 fL Neutrophils (%) (Auto) 68.9 % Lymphocytes (%) (Auto) 18.4 % Monocytes (%) (Auto) 10.6 % Eosinophils (%) (Auto) 1.2 % Basophils (%) (Auto) 0.7 % Neutrophils # (Auto) 3.96 K/uL Lymphocytes # (Auto) 1.06 K/uL Monocytes # (Auto) 0.61 K/uL Eosinophils # (Auto) 0.07 K/uL Basophils # (Auto) 0.04 K/uL RDW Standard Deviation 55.4 fL RDW Coefficient of Variation 13.7 % Immature Granulocyte % (Auto) 0.2 % Immature Granulocyte # (Auto) 0.01 K/uL Platelet Estimate DECREASED Red Blood Cell Morphology Unremarkable Prothrombin Time 13.5 SECONDS Prothromb Time International Ratio 1.3 Activated Partial Thromboplast Time 25.9 SECONDS Partial Thromboplastin Ratio 1.0 Sodium Level 139 mmol/L Potassium Level 3.4 mmol/L Chloride Level 102 mmol/L Carbon Dioxide Level 25 mmol/L Anion Gap 12.0 mmol/L 23.0 mmol/L Blood Urea Nitrogen 16 mg/dl Creatinine 0.73 mg/dl Est Creatinine Clear Calc Drug Dose 91.9 ml/min Estimated GFR () 110.5 Estimated GFR (Non- 95.4 BUN/Creatinine Ratio 21.3 Random Glucose 162 mg/dl Calcium Level 8.1 mg/dl Total Bilirubin 2.6 mg/dl Direct Bilirubin 1.8 mg/dl Aspartate Amino Transf (AST/SGOT) 137 U/L Alanine Aminotransferase (ALT/SGPT) 33 U/L Alkaline Phosphatase 222 U/L Total Protein 7.0 gm/dl Albumin 3.0 gm/dl Lipase 202 U/L Ethyl Alcohol mg/dL 264.0 mg/dl Bedside Hemoglobin 9.9 g/dl Bedside Hematocrit 29 % Bedside Sodium 142 mEq/L Bedside Potassium 3.4 mEq/L Bedside Chloride 99 mEq/L Bedside Total CO2 24 mEq/l Bedside Blood Urea Nitrogen 13 mg/dl Bedside Creatinine 1.1 mg/dl Bedside Glucose (other) 166 mg/dl Bedside Ionized Calcium (Donnell) 1.01 mmol/l Test 05/15/17 05:41 05/15/17 06:43 05/15/17 07:41 Bedside Glucose 144 mg/dl Hemoglobin 9.3 g/dL Hematocrit 27.6 % Total Creatine Kinase 223 U/L Creatine Kinase MB 0.7 ng/ml Creatine Kinase MB Ratio 0.3 Troponin I < 0.015 ng/ml Diagnostic Results CT OF THE ABDOMEN: 1. The liver is cirrhotic in morphology and there is evidence of portal hypertension including esophageal varices, splenomegaly, and trace perihepatic ascites. 2. There is nonspecific gallbladder wall thickening, likely related to cirrhosis and ascites. Cholelithiasis is noted. 3. The pancreas is markedly atrophic and there is evidence of chronic pancreatitis. 4. The uterus is enlarged and markedly heterogeneous in attenuation, and this corresponds the mass lesion identified by ultrasound. Large cystic foci are present within the uterus. This likely represents a fibroid uterus with foci of cystic degeneration. Note that the final diagnosis is histologic an underlying neoplasm would be impossible to exclude by imaging. Follow-up with gynecologic surgery is recommended. 5. Additional changes as above. CXR: FINDINGS: Nodular densities projecting over each lower lung are consistent with nipple shadows. The lungs are clear. Cardiac size is normal. Mediastinal contours are normal. There is no pneumothorax or pleural effusion. IMPRESSION: No acute cardiopulmonary findings. Assessment & Plan 52 year old female currently ongoing Alcohol and Tobacco abuse, was brought in with bouts of upper GI Bleed/Esophageal Varices. 1. Upper GI Bleed: Previous H/O Esophageal Varices and banding in the past. The patient is scheduled for EGD and plan of care accordingly. 2. Anemia: secondary to GI bleed. Was transfused three units of PRBC and the 4 th one is going on. Will monitor very closely. 3. Thrombocytopenia: Will transfuse with one unit of Platelets now and if indicated, FFP during the EGD. 4. Alcoholic Cirrhosis of Liver. Was recommended to stop drinking alcohol. 5. DTs. The patient has previous H/O Dts/withdrawal. Was started on Ativan as per the protocol. If indicated, will be started on Precedex. 7. Tobacco abuse/Alcohol abuse.: The patient was educated about quitting to drink and stop smoking. No H/O COPD or SOB. Uses Albuterol on as needed bases. 8. DVT prophylaxis/SCDs. The patient is also on Protonix drip and an Octreotide. 9. The patient is full code. Three peripheral lines. If indicated, will put the triple lumen central line. The patient was explained and answered all the questions. Spent greater than 55 minutes of critical care time, to evaluate and treat the patient, review all the labs and CT and CXR, Discussion with other health care provider and patient herself. DR. Salazar [facility].
[2017-05-15] MEDS ORDERED: SUCCINYLCHOLINE 100MG/5ML SYR IV ONE (08:11)
[2017-05-15] MEDS ORDERED: PROPOFOL IV EMULSION 10 MG/ML 20 ML VIAL IV ONE (08:11)
[2017-05-15] MEDS ORDERED: SUCCINYLCHOLINE CHLORIDE 20 MG/ML 10 ML VIAL IV ONE (08:11)
[2017-05-15] MEDS ORDERED: LIDOCAINE HCL 2% 2 ML VIAL (20MG/ML) ONE (08:11)
[2017-05-15] MEDS ORDERED: FENTANYL CITRATE INJ 50 MCG/1 ML 2 ML VIAL ONE ×2 (08:15→08:47)
--- NOTE | 2017-05-15 08:30 | NUR ---
A/ID: Patient assessment complete, see EMR. Patient is alert and oriented x4. Denies pain at this time, no further emesis this morning. Vital signs stable, see EMR. 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 Patient receiving third unit of PRBC. IV fluids on hold while blood products are infusing. Octreotide and Protonix drips infusing per eMAR. See EMR for labs. Patient evaluated by GI physician for EGD this morning. Patient is going to OR for EGD at this time with OR team.
[2017-05-15 08:38] LABS: MEAN CELL VOLUME 101.5 fL (80-100); MEAN CORPUSCULAR HGB CONC 33.7 g/dl (32-36)
--- NOTE | 2017-05-15 08:56 | GASTROINTESTINAL CONSULTATION ---
DATE OF CONSULTATION: 05/15/2017 TIME: 7:40 a.m. CHIEF COMPLAINT: Hematemesis, anemia, history of alcoholic liver disease, cirrhosis. HISTORY OF PRESENT ILLNESS: Ms. Fox is a 52-year-old white female who has a history of alcoholic liver disease and had been drinking since July. She had undergone EGD with banding in [place] on 2 occasions and she believes was instructed to follow up in 6 months. She is followed by Dr. Jensen in [facility]. The patient developed acute onset of hematemesis where she brought up some bright red blood and clots. She was admitted and placed on octreotide PPI drip. I was contacted by the ICU staff this morning at which point the patient had again vomited several clots and bright red blood. At times the patient was tachycardic, although her blood pressure was maintained. She had received 2 units packed red cells overnight. PAST MEDICAL HISTORY: Significant for cirrhosis with ascites due to alcoholic liver disease. She denies any history of hypertension, diabetes, thyroid matters, renal insufficiency, lung disease and other than a total hysterectomy with oophorectomy she has had no other prior surgeries. ALLERGIES: CIPRO. HOME MEDICATIONS: Gabapentin for peripheral neuropathy thought to be related to alcohol use. She also takes multivitamins and Normanal L1 daily. FAMILY HISTORY: Significant for cancer and hypertension, although there is no chronic liver disease reported by the patient. SOCIAL HISTORY: The patient smokes tobacco, has heavy alcohol use up until the day of admission. She lives with her family and is employed at [employer]. REVIEW OF SYSTEMS: Otherwise noncontributory based on 13-point exam except for mentioned above. The patient reported that she was taking ibuprofen 800 mg daily, but had not been taking aspirin or blood thinners. She denies any dysuria or hematuria or previous melena or bright red blood per rectum. PHYSICAL EXAMINATION: VITAL SIGNS: On admission the patient was afebrile at 36.6, blood pressure 116/73, room air 98%, pulse 123, respirations 18. GENERAL: The patient is awake, alert and oriented x3. HEENT: Sclerae are anicteric, conjunctiva moist. Oral mucosa moist. HEART: Normal S1, S2, normocephalic, atraumatic. NECK: There is normal range of motion. There are no rashes. There is no evidence of supraclavicular adenopathy or thyromegaly. HEART: Normal S1, S2. LUNGS: Clear to auscultation without rales, rhonchi or wheezes. ABDOMEN: Soft, flat, nontender, nondistended with good bowel sounds. There is no rebound or guarding. I do not appreciate hepatosplenomegaly. EXTREMITIES: Without clubbing, cyanosis or edema. RECTAL: Deferred at this time. There is no imaging during this admission. Prior abdominal CT in September of 2015 demonstrated gallbladder wall thickening which was nonspecific, evidence of cirrhosis with heterogeneity, an atrophic pancreas with evidence of chronic pancreatitis and at the time there was evidence of an enlarged uterus that was heterogeneous corresponding to a mass that was on ultrasound. At that time there was only trace perihepatic ascites. PRESENT MEDICATIONS: Nicoderm patch, potassium chloride, octreotide drip, Zofran, promethazine, Benadryl, pantoprazole drip. Her laboratory studies on admission a white count of 5.75 with a hemoglobin of 9.7 and 44,000, platelets. Subsequent blood work demonstrated that the hemoglobin fell to as low as 7.3 at midnight. The patient received 2 units of packed red cells and an additional 2 have been ordered. She also will be receiving FFP for an INR of 1.3 and platelets. On admission her other serum chemistries showed potassium of 3.4, BUN and creatinine were 16 and 0.7, calcium 8.1, total bilirubin 2.6, direct 1.8, AST 137, ALT 33, alkaline phosphatase 222, lipase was 202, albumin 3.0. Total CPK 223, although troponin levels are less than 0.015. Hemoglobin A1c is 5. IMPRESSION AND PLAN: The patient with evidence of portal hypertension and cirrhosis, presumably due to alcoholic liver disease. The details of any prior workup are not available at this time. Prior imaging studies in September of 2015 suggested cirrhotic morphology of the liver with minimal perihepatic ascites. The patient reports two endoscopic banding sessions in [place] in approximately July of 2015 with follow up recommended locally. The differential diagnosis includes bleeding from portal hypertension including esophageal and/or gastric varices, possible portal gastropathy and given her NSAID use, peptic ulcer disease may be a culprit. Would continue with octreotide drip, PPI drip, transfuse as needed. Follow INR and correct if possible. Vitamin K is reasonable, although likely will respond to FFP. Platelet count should be monitored and transfused if below 60,000 during the acute bleeding. At some point Dopplers would be prudent to exclude acute portal vein thrombosis. Additionally, abdominal imaging to exclude new onset of ascites would be helpful and if present consideration for diagnostic paracentesis. Would consider prophylactic antibiotics due to portal hypertension if banding occurs. Further recommendations to follow. Thank you for allowing us to participate in your patient's care.
--- NOTE | 2017-05-15 09:39 | GI REPORT ---
Procedure Date: 05/15/2017 8:30 AM Procedure: Upper GI endoscopy Indications: Hematemesis, Esophageal varices Medicines: General Anesthesia Complications: No immediate complications. Estimated blood loss: None. Estimated Blood Loss: Estimated blood loss: none. Procedure: Pre-Anesthesia Assessment: - Prior to the procedure, a History and Physical was performed, and patient medications and allergies were reviewed. The patient's tolerance of previous anesthesia was also reviewed. The risks and benefits of the procedure and the sedation options and risks were discussed with the patient. All questions were answered, and informed consent was obtained. Prior Anticoagulants: The patient has taken no previous anticoagulant or antiplatelet agents. ASA Grade Assessment: III - A patient with severe systemic disease. After reviewing the risks and benefits, the patient was deemed in satisfactory condition to undergo the procedure. After obtaining informed consent, the endoscope was passed under direct vision. Throughout the procedure, the patient's blood pressure, pulse, and oxygen saturations were monitored continuously. The Scope was introduced through the mouth, and advanced to the second part of duodenum. The upper GI endoscopy was accomplished without difficulty. The patient tolerated the procedure well. Findings: Three columns of non-bleeding grade II varices were found in the middle third of the esophagus, in the lower third of the esophagus and at the gastroesophageal junction, 25 to 37 cm from the incisors. They were 5 mm in largest diameter. Stigmata of recent bleeding were evident and red satish signs were present. Scarring from prior treatment was visible. Four bands were successfully placed with incomplete eradication of varices. There was no bleeding during, and at the end, of the procedure. Estimated blood loss: none. Red blood was found in the gastric fundus. Localized mild inflammation characterized by congestion (edema) and erosions was found in the prepyloric region of the stomach. The examined duodenum was normal. The cardia and gastric fundus were normal on retroflexion. Red blood was found in the gastric fundus. Lavage of the area was performed using a moderate amount of sterile water, resulting in incomplete clearance with fair visualization. Impression: - Recently bleeding grade II esophageal varices. Incompletely eradicated. Banded. - Red blood in the gastric fundus. - Acute gastritis. - Normal examined duodenum. - Red blood in the gastric fundus. - No specimens collected. Recommendation: - [facility] care. - NPO. -Continue octreotide and Protonix ggts -Stool for H pylori - Repeat the upper endoscopy in 4 weeks for retreatment. MD Johnny Alvarez MD 05/15/2017 9:38:13 AM This report has been signed electronically. Note Initiated On: 05/15/2017 8:30 AM I attest to the content of the Intraoperative Record and orders documented therein, exceptions below
--- NOTE | 2017-05-15 10:19 | Anesthesiology Progress Note ---
Anesthesia Post Op Note Date & Time May 15, 2017 at 10:19 Vital Signs Pain Intensity: 0 Vital Signs Past 12 Hours Date Time Temp Pulse Resp B/P (MAP) Pulse Ox O2 Delivery O2 Flow Rate FiO2 05/15/17 10:15 36.6 126 24 144/95 99 Mask 10 05/15/17 10:01 137 24 141/92 (108) 97 Room Air 05/15/17 10:00 36.6 134 28 141/92 93 Room Air Mask 05/15/17 09:54 130 23 147/94 (111) 99 Room Air 05/15/17 09:45 36.6 142 24 148/90 98 Mask 10 05/15/17 08:17 127 29 121/97 (105) 96 Room Air 05/15/17 08:15 37.2 135 24 121/97 96 05/15/17 08:01 37.1 101 21 136/90 (105) 93 Room Air 05/15/17 07:46 104 21 138/82 (100) 93 Room Air 05/15/17 07:45 36.8 100 18 138/82 93 05/15/17 07:31 115 24 147/84 (105) 95 Room Air 05/15/17 07:28 37.1 118 19 148/90 95 05/15/17 07:16 143 15 146/89 (108) 98 Room Air 05/15/17 07:01 109 21 125/83 (97) 93 Room Air 05/15/17 06:31 112 23 134/87 (103) 94 05/15/17 06:24 149/96 (113) 05/15/17 06:13 104 20 142/88 (106) 92 05/15/17 06:03 124 23 81/56 (64) 95 05/15/17 05:54 95 20 84/63 (70) 95 05/15/17 05:47 109 18 202/119 (146) 94 05/15/17 05:32 37.1 98 17 183/117 (139) 94 05/15/17 05:30 109 17 95 05/15/17 05:02 36.9 110 15 114/71 (85) 95 Room Air 05/15/17 04:55 Room Air 05/15/17 04:46 110 19 127/84 (98) 98 Room Air 05/15/17 04:31 37.0 116 19 118/73 (88) 94 Room Air 05/15/17 04:26 112 19 93 05/15/17 04:16 37.5 122 19 113/72 (86) 93 Room Air 05/15/17 04:10 37.5 118 16 123/66 93 05/15/17 04:06 127 19 123/66 (85) 95 Room Air 05/15/17 03:46 37.0 121 17 107/72 (84) 94 Room Air 05/15/17 03:45 37.0 110 18 107/72 93 05/15/17 03:16 37.7 101 19 110/63 (79) 93 Room Air 05/15/17 02:46 37.1 111 16 105/64 (78) 95 Room Air 05/15/17 02:31 36.9 126 21 112/65 (81) 96 Room Air 05/15/17 02:16 36.8 107 19 107/68 (81) 89 Room Air 05/15/17 02:01 37.0 110 22 106/58 (74) 93 Room Air 05/15/17 01:52 37.4 123 18 110/57 95 05/15/17 01:05 37.2 111 14 102/58 98 Room Air 05/15/17 00:45 122 19 95 05/15/17 00:31 106/61 05/15/17 00:15 107 21 05/15/17 00:01 117/68 05/14/17 23:45 113 20 05/14/17 23:39 114 19 117/71 95 Room Air 05/14/17 22:31 103 24 134/76 93 Room Air 05/14/17 22:22 100 Notes Mental Status: alert / awake / arousable, participated in evaluation Pt Amnestic to Procedure: Yes Nausea / Vomiting: adequately controlled Pain: adequately controlled Airway Patency, RR, SpO2: stable & adequate BP & HR: stable & adequate Hydration State: stable & adequate Anesthetic Complications: no major complications apparent
--- NOTE | 2017-05-15 10:30 | NUR ---
A: Patient returned to unit from OR at 0953. Recovery complete, reassumed care of patient. See EMR for vital signs. 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 Protonix and Octreotide drips infusing per eMAR. Multivitamin bag infusing at 100 ml/hr. Repeat labs will be drawn around 1230. Patient denies pain or nausea at this time. Patient's POA (Sada) updated via phone. Call brunner within reach, will continue to monitor closely.
[2017-05-15] MEDS: CEFTRIAXONE SOD INJ 1 GM in DEXTROSE 5% ADD-VANTAGE 50ML 50 ML IV SCH (11:25)
--- NOTE | 2017-05-15 12:00 | NUR ---
A: Vital signs stable. Patient had large, loose eliana stool. Physician aware. Will continue to monitor.
[2017-05-15 12:49] LABS: HEMATOCRIT 30.6 % (37-47); HEMOGLOBIN 10.4 g/dL (12.0-16.0)
--- NOTE | 2017-05-15 14:20 | NUR ---
A: Patient's HR increased to 130s/140s. BP increased to 146/93. Per Dr. Garzon, 2 mg IV Ativan given. Patient incontinent liquid eliana stool. Incontinent of urine, mixed with stool. Unable to appreciate urine output this shift for intake/output.
[2017-05-15 14:46] LABS: PLATELET COUNT 24 K/uL (130-400)
--- NOTE | 2017-05-15 16:00 | NUR ---
A: Assessment completed. Vital signs as documented. Sinus tachycardia on the cardiac/vascular sonographer, rate 110-120's. Pt awake alert and oriented voicing no complaints. No s/s of acute distress. Platelet infusion in progress without evidence of reaction or complication. Sandostatin, Protonix, MVI, IVFs infusing as per MD order. No bleeding noted at this time. Scattered ecchymosis noted, optifoam to sacrum. Significant other at bedside. Call brunner within reach. Will continue to monitor. See EMR nursing assessment documentation for further details.
--- NOTE | 2017-05-15 16:38 | Progress Note ---
Subjective Date of Service: May 15, 2017. Subjective pt was seen post operatively, she is groggy but doing well, she had urgent esophageal varicies banded this am, she received transfusion of blood ffp and platelets. she is seemingly stable but there is concern for alcohol withdrawal Problem List Medical Problems: (1) Alcohol intoxication Status: Acute (2) Alcoholic cirrhosis Status: Acute (3) Anemia Status: Acute (4) Thrombocytopenia Status: Acute (5) Upper GI bleed Status: Acute Review of Systems Constitutional: + problem reported (pts post op sedation prevents full ROS) Objective Vital Signs Date Time Temp Pulse Resp B/P (MAP) Pulse Ox O2 Delivery O2 Flow Rate FiO2 05/15/17 08:15 37.2 135 24 121/97 96 05/15/17 07:45 36.8 100 18 138/82 93 05/15/17 07:28 37.1 118 19 148/90 95 05/15/17 06:31 112 23 134/87 (103) 94 05/15/17 06:24 149/96 (113) 05/15/17 06:13 104 20 142/88 (106) 92 05/15/17 06:03 124 23 81/56 (64) 95 05/15/17 05:54 95 20 84/63 (70) 95 05/15/17 05:47 109 18 202/119 (146) 94 05/15/17 05:32 37.1 98 17 183/117 (139) 94 05/15/17 05:30 109 17 95 05/15/17 05:02 36.9 110 15 114/71 (85) 95 Room Air 05/15/17 04:55 Room Air 05/15/17 04:46 110 19 127/84 (98) 98 Room Air 05/15/17 04:31 37.0 116 19 118/73 (88) 94 Room Air 05/15/17 04:26 112 19 93 05/15/17 04:16 37.5 122 19 113/72 (86) 93 Room Air 05/15/17 04:10 37.5 118 16 123/66 93 05/15/17 04:06 127 19 123/66 (85) 95 Room Air 05/15/17 03:46 37.0 121 17 107/72 (84) 94 Room Air 05/15/17 03:45 37.0 110 18 107/72 93 05/15/17 03:16 37.7 101 19 110/63 (79) 93 Room Air 05/15/17 02:46 37.1 111 16 105/64 (78) 95 Room Air 05/15/17 02:31 36.9 126 21 112/65 (81) 96 Room Air 05/15/17 02:16 36.8 107 19 107/68 (81) 89 Room Air 05/15/17 02:01 37.0 110 22 106/58 (74) 93 Room Air 05/15/17 01:52 37.4 123 18 110/57 95 05/15/17 01:05 37.2 111 14 102/58 98 Room Air 05/15/17 00:45 122 19 95 05/15/17 00:31 106/61 05/15/17 00:15 107 21 05/15/17 00:01 117/68 05/14/17 23:45 113 20 05/14/17 23:39 114 19 117/71 95 Room Air 05/14/17 22:31 103 24 134/76 93 Room Air 05/14/17 22:22 100 05/14/17 22:03 Room Air 05/14/17 22:03 102 20 109/67 98 05/14/17 21:23 36.6 123 18 116/73 98 Room Air Physical Exam General Appearance: WD/WN, + moderate distress Eyes: normal inspection, sclerae normal Respiratory/Chest: no respiratory distress, + decreased breath sounds Cardiovascular: no murmur, + tachycardia Abdomen: normal bowel sounds, non tender, soft Extremities: no pedal edema, no calf tenderness Laboratory Results Last 24 Hours Test 05/14/17 21:56 05/14/17 22:07 05/14/17 23:35 05/15/17 00:47 White Blood Count 5.75 K/uL Red Blood Count 2.57 M/uL Hemoglobin 9.7 g/dL 7.5 g/dL 7.3 g/dL Hematocrit 29.1 % 22.6 % 22.2 % Mean Corpuscular Volume 113.2 fL Mean Corpuscular Hemoglobin 37.7 pg Mean Corpuscular Hemoglobin Concent 33.3 g/dl Platelet Count 44 K/uL Mean Platelet Volume 11.5 fL Neutrophils (%) (Auto) 68.9 % Lymphocytes (%) (Auto) 18.4 % Monocytes (%) (Auto) 10.6 % Eosinophils (%) (Auto) 1.2 % Basophils (%) (Auto) 0.7 % Neutrophils # (Auto) 3.96 K/uL Lymphocytes # (Auto) 1.06 K/uL Monocytes # (Auto) 0.61 K/uL Eosinophils # (Auto) 0.07 K/uL Basophils # (Auto) 0.04 K/uL RDW Standard Deviation 55.4 fL RDW Coefficient of Variation 13.7 % Immature Granulocyte % (Auto) 0.2 % Immature Granulocyte # (Auto) 0.01 K/uL Platelet Estimate DECREASED Red Blood Cell Morphology Unremarkable Prothrombin Time 13.5 SECONDS Prothromb Time International Ratio 1.3 Activated Partial Thromboplast Time 25.9 SECONDS Partial Thromboplastin Ratio 1.0 Sodium Level 139 mmol/L Potassium Level 3.4 mmol/L Chloride Level 102 mmol/L Carbon Dioxide Level 25 mmol/L Anion Gap 12.0 mmol/L 23.0 mmol/L Blood Urea Nitrogen 16 mg/dl Creatinine 0.73 mg/dl Est Creatinine Clear Calc Drug Dose 91.9 ml/min Estimated GFR () 110.5 Estimated GFR (Non- 95.4 BUN/Creatinine Ratio 21.3 Random Glucose 162 mg/dl Calcium Level 8.1 mg/dl Total Bilirubin 2.6 mg/dl Direct Bilirubin 1.8 mg/dl Aspartate Amino Transf (AST/SGOT) 137 U/L Alanine Aminotransferase (ALT/SGPT) 33 U/L Alkaline Phosphatase 222 U/L Total Protein 7.0 gm/dl Albumin 3.0 gm/dl Lipase 202 U/L Ethyl Alcohol mg/dL 264.0 mg/dl Bedside Hemoglobin 9.9 g/dl Bedside Hematocrit 29 % Bedside Sodium 142 mEq/L Bedside Potassium 3.4 mEq/L Bedside Chloride 99 mEq/L Bedside Total CO2 24 mEq/l Bedside Blood Urea Nitrogen 13 mg/dl Bedside Creatinine 1.1 mg/dl Bedside Glucose (other) 166 mg/dl Bedside Ionized Calcium (Donnell) 1.01 mmol/l Test 05/15/17 05:41 05/15/17 06:43 Bedside Glucose 144 mg/dl White Blood Count 4.07 K/uL Red Blood Count 2.82 M/uL Hemoglobin 9.3 g/dL Hematocrit 27.6 % Mean Corpuscular Volume 101.5 fL Mean Corpuscular Hemoglobin 33.3 pg Mean Corpuscular Hemoglobin Concent 33.7 g/dl Platelet Count 24 K/uL Mean Platelet Volume 12.0 fL Estimated Average Glucose 97 mg/dl Hemoglobin A1c 5.0 % Total Creatine Kinase 223 U/L Creatine Kinase MB 0.7 ng/ml Creatine Kinase MB Ratio 0.3 Troponin I < 0.015 ng/ml Assessment and Plan 52 F presentes with concern for esophageal variceal bleed, history of the variceal banding and current alcohol abuse Acute blood loss anemia from esophageal bleeding, Protonix drip and octreotide drip begun in the emergency department. Support blood pressure with IVF Transfused 3 units PRBCs, 1 F[address] Cotton from gastroenterology consult performed EGD and banding Dr. Patiño from intensive care medicine will manage in the icu alcohol withdrawal AWSS program with IV Ativan. Coagulopathy--due to liver failure from alcoholic cirrhosis INR was 1.3 upon admission. follow as may have some consumptive coagulopathy, given FFP Thrombocytopenia--likely from chronic liver disease Dehydration/hypokalemia--replete with normal saline with KCl 20 mEq Tobacco use disorder counselled for cessation, NicoDerm patch Hyperglycemia--follow with ssi DVT prevention will be mechanical given concern for hemorrhage
[2017-05-15 16:45] LABS: HEMATOCRIT 28.4 % (37-47); HEMOGLOBIN 9.7 g/dL (12.0-16.0)
[2017-05-15 16:51] LABS: PLATELET COUNT 39 K/uL (130-400)
[2017-05-15 17:16] LABS: CKMB 1.1 ng/ml (0.5-3.6)
--- NOTE | 2017-05-15 18:00 | NUR ---
A: Pt resting comfortably in bed at this time without voiced complaints. Pt turned and repositioned. Oral care provided. Vital signs as documented. Sinus tachycardia on the cardiac cath lab manager, rate in the 110's. No s/s of acute distress. Call brunner within reach. Will continue to monitor.
--- NOTE | 2017-05-15 20:00 | NUR ---
A: Assessment completed. Vital signs as documented. Sinus tachycardia on the engine monitor, rate 100-110's. Pt awake alert and oriented voicing no complaints. No s/s of acute distress. Sandostatin, Protonix, IVFs infusing as per MD order. One liquid eliana colored BM thus far this shift. Scattered ecchymosis noted, optifoam to sacrum changed. Call brunner within reach. Will continue to monitor. See EMR nursing assessment documentation for further details.
--- NOTE | 2017-05-15 21:00 | NUR ---
A: Ativan 1mg IV PRN administered for AWSS protocol for score of 6, see EMAR. Will continue to monitor
--- NOTE | 2017-05-15 22:00 | NUR ---
A: Pt resting quietly in bed with eyes closed, awakens easily to verbal stimuli. Pt voices no complaints. Vital signs as documented. Sinus tachycardia on the cardiac rehab nurse, rate 100-110's. Sandostatin, Protonix, IVFs as per MD order. I&O as documented. Bed alarm activate for fall prevention. Call brunner within reach. Will continue to monitor.
--- NOTE | 2017-05-15 22:48 | NUR ---
A: Per AWSS protocol for score of 8, IV PRN Ativan 2mg administered. See EMAR. Call brunner within reach. Will continue to monitor.
[2017-05-16] VITALS (16 sets, daily range): BP systolic 100–147; BP diastolic 74–96; PULSE 75–100; TEMP 36.4–37.6; O2SAT 93–97
--- NOTE | 2017-05-16 | NUR ---
PATIENT AWAKE, ALERT AND ORIENTED AT THIS TIME. PATIENT IS BECOMING ANXIOUS THE SHIFT GOES ON. DISCUSSED WITH CORTES CARRASQUILLO. VS ARE STABLE. AT THIS TIME. CALL LERMA IN REACH. BED IN LOW POSITION. WILL CONTINUE TO MONITOR THIS ICU PATIENT
[2017-05-16 00:37] LABS: HEMATOCRIT 31.2 % (37-47); HEMOGLOBIN 10.4 g/dL (12.0-16.0)
[2017-05-16] MEDS: DexMEDEtomidine HCL IV 200 MCG in SODIUM CHLORIDE 0.9% 50ML 48 ML IV PRN ×2 (00:55→08:04)
[2017-05-16] MEDS: PANTOprazole INJ 40 MG in DEXTROSE 5% 100ML IV SCH ×5 (00:56→23:38)
[2017-05-16 01:41] LABS: PLATELET COUNT 40 K/uL (130-400)
--- NOTE | 2017-05-16 02:00 | NUR ---
PATIENT IS NOW CURRENTLY CALMING DOWN. PATIENT ON PRECEDEX DRIP. PATIENT NOW HAS CONKLIN CATHETER. PATENT AND DRAINING. VS ARE STABLE, WNL. CALL LERMA IN REACH. BED IN LOW POSITION. WILL CONTINUE TO MONITOR THIS ICU PATIENT.
[2017-05-16] MEDS: NSS + 20MEQ KCL 1000ML 1,000 ML IV SCH ×3 (02:31→23:38)
[2017-05-16] MEDS: OCTREOTIDE ACETATE INJ 500 MCG in NSS 100ML IV SCH ×3 (03:03→23:33)
--- NOTE | 2017-05-16 04:00 | NUR ---
PATIENT RESTING COMFORTABLY AT THIS TIME. VS ARE STABLE. CALL LERMA IN REACH. BED IN LOW POSITION. WILL CONTINUE TO MONITOR THIS ICU PATIENT.
[2017-05-16 05:26] LABS: HEMATOCRIT 29.2 % (37-47); HEMOGLOBIN 9.8 g/dL (12.0-16.0); MEAN CORPUSCULAR HEMOGLOBIN 32.9 pg (25-34); MEAN CORPUSCULAR HGB CONC 33.6 g/dl (32-36); RED CELL DISTRIBUTION WIDTH CV 22.7 % (11.5-14.5); RED CELL DISTRIBUTION WIDTH SD 77.4 fL (36.4-46.3); WHITE BLOOD COUNT 4.36 K/uL (4.8-10.8)
[2017-05-16 05:27] LABS: INR 1.4 (0.9-1.1); PTT PATIENT 28.3 SECONDS (21.0-31.0)
[2017-05-16 05:37] LABS: ALBUMIN 2.5 gm/dl (3.4-5.0); CALCIUM 7.1 mg/dl (8.5-10.1); CREATININE 0.44 mg/dl (0.60-1.20); POTASSIUM 3.4 mmol/L (3.5-5.1)
[2017-05-16 05:40] LABS: PHOSPHORUS 1.7 mg/dl (2.5-4.9); TOTAL PROTEIN 5.7 gm/dl (6.4-8.2)
[2017-05-16 06:00] LABS: MEAN PLATELET VOLUME 10.9 fL (7.4-10.4); PLATELET COUNT 37 K/uL (130-400)
--- NOTE | 2017-05-16 06:00 | NUR ---
PATIENT SLEEPING AT THIS TIME. PATIENT EASILY AROUSES TO VOICE STIMULATION. VS ARE STABLE, WNL AT THIS TIME. PATIENT TOLERATING CONKLIN AT THIS TIME. CALL LERMA IN REACH. BED IN LOW POSITION. ALARM ENABLED. WILL CONTINUE TO MONITOR THIS PATIENT
[2017-05-16 06:01] LABS: BASO % 0.2 %; BASO ABS # 0.01 K/uL (0-0.2); EOS ABS # 0.13 K/uL (0-0.5); IG# 0.01 K/uL (0.00-0.02); LYMPH ABS # 1.31 K/uL (1.2-3.4); MONO % 11.5 %; NEUT % 55.1 %
--- NOTE | 2017-05-16 06:56 | DIAGNOSTIC IMAGING REPORT ---
CHEST ONE VIEW PORTABLE CLINICAL HISTORY: 52 years-old Female presenting with gi bleed. TECHNIQUE: Portable upright AP view of the chest was obtained. COMPARISON: 10/04/2015. FINDINGS: Cardiomediastinal silhouette normal. Lungs and pleural spaces clear. Osseous structures normal. Upper abdomen normal. IMPRESSION: 1. No acute cardiopulmonary disease. Electronically signed by: Shawn Pearl M.D. 05/16/2017 6:54 AM Dictated Date/Time: 05/16/2017 6:54 AM
--- NOTE | 2017-05-16 08:00 | NUR ---
A/ID: Patient assessment complete, see EMR. Patient awakens to verbal stimuli. Precedex infusing at 0.4 mcg/kg/hr (6.9 ml/hr). Vital signs stable, see EMR. SR on groundwater monitoring technician. Protonix and Octreotide drips infusing per eMAR. NSS with 20 KCl infusing at 100 ml/hr. Physician aware of morning lab results. Call brunner within reach, bed alarm on, will continue to monitor.
[2017-05-16] MEDS: CEFTRIAXONE SOD INJ 1 GM in DEXTROSE 5% ADD-VANTAGE 50ML 50 ML IV SCH (08:04)
[2017-05-16] MEDS: NICOTINE 14 MG/24 HR TDSY TD SCH (08:04)
[2017-05-16] MEDS ORDERED: POTASSIUM PHOSPHATE INJ 21 MMOL in SODIUM CHLORIDE 0.9% 500ML 500 ML IV ONE (08:30)
[2017-05-16] MEDS: MAGNESIUM SULFATE 1GM / D5W 1 GM in PREMIXED IN D5W 100 ML IV SCH ×2 (09:02→09:55)
--- NOTE | 2017-05-16 10:00 | NUR ---
A: Precedex drip titrated down to 0.3 mcg/kg/hr. Vital signs stable, will continue to monitor.
--- NOTE | 2017-05-16 11:12 | Critical Care Progress Note ---
Critical Care Progress Note Date of Service May 16, 2017. ICU Day ICU Day Number: [address] Garzon Subjective The patient was in to DTs with restlessness and also tachycardic in the range of 155 HR. received IV ativan, but lateron was put on Precedex and has improved significantly. Currently, the patient is resting comfortably and no anxiety or agitation and HR is 88 and is oxygenating well in high 90s. Also hed EGD and banding of the ligation of the esophageal varices.and no more bleeding at this time and H/H has been stable. Also the patient received two units of Platelets and current platelets are 37. I questioned patient about thrombocytopenia, which was never worked up in the past. Putting out good urine. Objective General Appearance: well-appearing, no apparent distress Head: normocephalic Eyes: PERRLA ENT: normal ear exam Neck: normal range of motion, no tenderness, trachea midline, no stridor, supple, no thyromegaly, no lymphadenopathy Respiratory: breath sounds normal, clear to auscultation, clear to percussion, no respiratory distress, no tenderness Cardiovasular: S1/S2 heard. Abdomen: non tender, normal bowel sounds, no rebound, no masses, no guarding, no organomegaly Genitourinary - Female: other (Not examined.) Back: normal range of motion Upper Extremities: no edema, no deformity, normal ROM Lower Extremities: no edema, no deformity, normal ROM Pulses: brachial (R) (2+), brachial (L) (2+), radial (R) (2+), radial (L) (2+) , dorsalis pedis (R) (2+), dorsalis pedis (L) (2+) Neuro: alert, oriented x 3, normal motor exam, normal sensation Psychiatric: normal affect, no suicidal ideation Current SOFA Score SOFA Score Response (Comments) Value PaO2/FiO2 (mmHg) < 400 1 SaO2 / FIO2 221 - 301 1 Platelets (x10) < 50 3 Bilirubin (mg/dL) 2.0 - 5.9 2 [place] Coma Score 15 0 Level of Hypotension No Hypotension 0 Creatinine (mg/dL) < 1.2 0 Total 7 Assessment & Plan 52 year old female currently ongoing Alcohol and Tobacco abuse, was brought in with bouts of upper GI Bleed/Esophageal Varices. 1. Upper GI Bleed: S/Post EGD and banding of the esophageal varices. No more episodes of GI Bleed and maintaining the H/H. 2. Anemia: secondary to GI bleed. Was transfused 4 units of PRBC and the. S/ Post EGD and banding of the esophageal varices and no more bleeding. Will monitor very closely. 3. Thrombocytopenia: Was transfused with two units of Platelets and current platelets are 37. Will need to be evaluated by the [employer] for thrombocytopenia. 4. Alcoholic Cirrhosis of Liver. Was recommended to stop drinking alcohol. 5. DTs. The patient has previous H/O Dts/withdrawal. Was started on Ativan as per the protocol. Later on she was also started on Precedex and is seems to be doing better. We had a long discussion about quitting alcohol and she has agreed to that and would like to discuss with social organization professor for detox program. Bedside RN Jo was notified, who is going to discuss with the social organization professor. 7. Tobacco abuse/Alcohol abuse.: The patient was educated about quitting to drink and stop smoking. No H/O COPD or SOB. Uses Albuterol on as needed bases. We are going to discuss with the social organization professor about detox program. The patient has agreed to discuss and get any help, if available. 8. DVT prophylaxis/SCDs. The patient is also on Protonix drip and an Octreotide. 9. The patient is full code. Three peripheral lines. If indicated, will put the triple lumen central line. The patient was explained and answered all the questions. Spent greater than 35 minutes of critical care time. Consults & Procedures Consultants: GI.Johnny Mi MD. Hospitalist: Sal Pelaez MD. Procedures: EGD: Johnny Cotton. Data Medications: Current Inpatient Medications Medications (Trade) Dose Ordered Sig/Shama Route Start Time Stop Time Status Last Admin Dose Admin Potassium Chloride/Sodium Chloride 1,000 ml @ 100 mls/hr Q10H IV 05/15/17 12:30 06/14/17 12:29 05/16/17 02:31 100 MLS/HR Miscellaneous Information (Icu Protocol For Hyperglycemia) 1 ea PRN PRN N/A 05/15/17 00:30 05/17/17 00:29 Lorazepam (Ativan Inj) PRN Dosing -Active Protocol Q1H PRN IV 05/15/17 00:45 06/14/17 00:44 05/15/17 22:45 2 MG Octreotide Acetate 500 mcg/ Sodium Chloride 105 ml @ 10 mls/hr [id number] IV 05/15/17 08:15 06/14/17 08:14 05/16/17 03:03 10 MLS/HR Pantoprazole Sodium 40 mg/ Dextrose 100 ml @ 20 mls/hr Q5H IV 05/15/17 02:30 06/14/17 02:29 05/16/17 06:02 20 MLS/HR Nicotine (Nicoderm Cq 14MG Patch) 1 patch QAM TD 05/15/17 09:00 06/14/17 08:59 05/16/17 08:04 1 PATCH Miscellaneous (Remove Nicoderm Patch) 1 ea HS N/A 05/15/17 21:00 06/14/17 20:59 05/15/17 20:03 1 EA Diphenhydramine HCl (Benadryl Inj) 25 mg Q6H PRN IV 05/15/17 04:30 06/14/17 04:29 Ondansetron HCl (Zofran Inj) 4 mg Q6H PRN IV 05/15/17 06:45 06/14/17 06:44 05/15/17 11:25 4 MG Promethazine HCl 25 mg/Sodium Chloride 51 ml @ 204 mls/hr Q6H PRN IV 05/15/17 06:45 06/14/17 06:44 Ceftriaxone Sodium 1 gm/ Dextrose 50 ml @ 100 mls/hr Q24H IV 05/15/17 10:00 05/21/17 10:29 05/16/17 08:04 100 MLS/HR Dexmedetomidine HCl 200 mcg/ Sodium Chloride 50 ml @ 0 mls/hr Q0M PRN IV 05/16/17 00:27 05/20/17 00:26 05/16/17 08:04 6.9 MLS/HR Potassium Phosphate 21 mmol/ Sodium Chloride 507 ml @ 88 mls/hr ONE ONCE IV 05/16/17 08:30 05/16/17 14:15 05/16/17 09:02 88 MLS/HR Thiamine HCl 100 mg/Syringe 10 ml @ 2 mls/min Q24H IV 05/16/17 11:00 06/15/17 10:59 Folic Acid 1 mg/ Syringe 10 ml @ 5 mls/min Q24H IV 05/16/17 11:00 06/15/17 10:59 Vital Signs: Date Time Temp Pulse Resp B/P (MAP) Pulse Ox O2 Delivery O2 Flow Rate FiO2 05/16/17 08:02 36.7 81 14 107/81 (90) 93 Room Air 05/16/17 08:00 Room Air 05/16/17 07:01 90 15 121/88 (99) 95 Room Air 05/16/17 06:02 100 17 108/83 (91) 96 05/16/17 04:02 36.7 87 17 121/83 (96) 95 05/16/17 04:00 94 Room Air 05/16/17 03:02 92 18 130/89 (103) 94 05/16/17 02:02 92 19 147/96 (113) 95 05/16/17 01:02 94 21 147/96 (113) 95 05/16/17 00:02 37.6 99 22 138/93 (108) 95 05/15/17 23:59 94 Room Air 05/15/17 23:01 94 22 150/103 (119) 96 05/15/17 22:30 112 25 149/104 (111) 95 05/15/17 22:01 106 22 157/101 (123) 95 05/15/17 21:01 104 21 138/95 (111) 95 05/15/17 20:01 102 25 153/98 (112) 94 05/15/17 20:00 37.7 05/15/17 20:00 94 Room Air 05/15/17 19:01 113 24 152/96 (109) 96 05/15/17 18:01 116 28 130/90 (99) 94 05/15/17 17:01 122 27 140/93 (99) 93 05/15/17 16:39 120 21 141/91 (108) 93 05/15/17 16:39 37.4 119 28 141/91 91 05/15/17 16:01 115 23 123/86 (98) 93 05/15/17 16:00 94 Room Air 05/15/17 16:00 37.4 05/15/17 15:55 37.4 120 24 123/86 94 05/15/17 15:29 37.4 120 23 130/88 93 05/15/17 15:14 37.4 119 28 133/91 95 05/15/17 14:01 128 23 146/93 (110) 96 Room Air 05/15/17 13:31 126 26 130/88 (102) 93 Room Air 05/15/17 13:01 120 22 137/88 (104) 92 Room Air 05/15/17 12:01 110 21 140/88 (105) 98 Oxymask 3.0 05/15/17 12:00 Room Air 05/15/17 11:31 114 26 137/93 (108) 96 Oxymask 3.0 05/15/17 11:01 110 25 145/93 (110) 94 Oxymask 3.0 Laboratory Results: Last 24 Hours Test 05/15/17 11:32 05/15/17 12:37 05/15/17 16:31 05/15/17 17:28 Bedside Glucose 142 mg/dl Hemoglobin 10.4 g/dL 9.7 g/dL Hematocrit 30.6 % 28.4 % Platelet Count 24 K/uL 39 K/uL Total Creatine Kinase 203 U/L Creatine Kinase MB 1.1 ng/ml Creatine Kinase MB Ratio 0.5 Troponin I 0.083 ng/ml Urine Color DK YELLOW Urine Appearance CLEAR Urine pH 6.5 Urine Specific [place] 1.018 Urine Protein NEG Urine Glucose (UA) NEG Urine Ketones NEG Urine Occult Blood 2+ Urine Nitrite NEG Urine Bilirubin NEG Urine Urobilinogen NEG Urine Leukocyte Esterase TRACE Urine WBC (Auto) 1-5 /hpf Urine RBC (Auto) 0-4 /hpf Urine Hyaline Casts (Auto) 1-5 /lpf Urine Epithelial Cells (Auto) >30 /lpf Urine Bacteria (Auto) 2+ Test 05/15/17 18:02 05/16/17 00:29 05/16/17 00:30 05/16/17 05:07 Bedside Glucose 138 mg/dl 129 mg/dl Hemoglobin 10.4 g/dL 9.8 g/dL Hematocrit 31.2 % 29.2 % Platelet Count 40 K/uL 37 K/uL White Blood Count 4.36 K/uL Red Blood Count 2.98 M/uL Mean Corpuscular Volume 98.0 fL Mean Corpuscular Hemoglobin 32.9 pg Mean Corpuscular Hemoglobin Concent 33.6 g/dl Mean Platelet Volume 10.9 fL Neutrophils (%) (Auto) 55.1 % Lymphocytes (%) (Auto) 30.0 % Monocytes (%) (Auto) 11.5 % Eosinophils (%) (Auto) 3.0 % Basophils (%) (Auto) 0.2 % Neutrophils # (Auto) 2.40 K/uL Lymphocytes # (Auto) 1.31 K/uL Monocytes # (Auto) 0.50 K/uL Eosinophils # (Auto) 0.13 K/uL Basophils # (Auto) 0.01 K/uL RDW Standard Deviation 77.4 fL RDW Coefficient of Variation 22.7 % Immature Granulocyte % (Auto) 0.2 % Immature Granulocyte # (Auto) 0.01 K/uL Large Platelets 1+ Anisocytosis PRESENT Stomatocytes 1+ Prothrombin Time 14.1 SECONDS Prothromb Time International Ratio 1.4 Activated Partial Thromboplast Time 28.3 SECONDS Partial Thromboplastin Ratio 1.1 Sodium Level 136 mmol/L Potassium Level 3.4 mmol/L Chloride Level 105 mmol/L Carbon Dioxide Level 27 mmol/L Anion Gap 4.0 mmol/L Blood Urea Nitrogen 7 mg/dl Creatinine 0.44 mg/dl Est Creatinine Clear Calc Drug Dose 152.5 ml/min Estimated GFR () 135.5 Estimated GFR (Non- 116.9 BUN/Creatinine Ratio 15.8 Random Glucose 112 mg/dl Calcium Level 7.1 mg/dl Phosphorus Level 1.7 mg/dl Magnesium Level 1.3 mg/dl Total Bilirubin 2.8 mg/dl Direct Bilirubin 1.8 mg/dl Aspartate Amino Transf (AST/SGOT) 76 U/L Alanine Aminotransferase (ALT/SGPT) 22 U/L Alkaline Phosphatase 121 U/L Total Protein 5.7 gm/dl Albumin 2.5 gm/dl Test 05/16/17 07:49 Troponin I 0.026 ng/ml
[2017-05-16] MEDS: THIAMINE HCL INJ 100 MG in SYRINGE 9 ML IV SCH (11:21)
[2017-05-16] MEDS: FoLIC ACID INJ 1 MG in SYRINGE 9.8 ML IV SCH (11:21)
--- NOTE | 2017-05-16 11:44 | NUR ---
A: Precedex drip has been titrated down to 0.1 mcg/kg/hr. Patient awake, alert and oriented x4. Denies anxiety or pain. Patient has expressed interest in attending rehab for substance abuse. manager study aware and provided patient with information; will continue to follow.
--- NOTE | 2017-05-16 11:46 | NUR ---
Case Management Note- Met with patient and s/o, Erasmo, at bedside. Patient gives permission to include Erasmo in discharge planning (Phone:[phone]). Patient lives adjacent to her s/o in a double wide home. She is independent at baseline. Patient is employed and drives. Role of [employer] explained. Discussed outpatient vs inpatient drug and alcohol rehab. Patient verbalizes interest in both. List of outpatient facilities provided. Also provided them with multiple brochures of inpatient drug and alcohol rehab facilities. Encouraged them to look at each and choose a few different facilities. Once a decision is made, referrals will be placed. Discussed this with the ICU Typists Supervisor team. Informed them that once patient picks a facility, Case Management will call to determine if a Psych consult is needed. Patient sister, Sada, is [employer] and a Nurse Practitioner. Paperwork is on patient chart. Will continue to follow.
--- NOTE | 2017-05-16 12:00 | NUR ---
A: Patient removed her own Nicotine patch, declined to have another placed.
--- NOTE | 2017-05-16 14:00 | NUR ---
A: Patient OOB to chair with assist of 1. Patient sat up for about 30 minutes then went back to bed. Precedex drip off at this time. Vital signs stable, see EMR. Will continue to monitor.
[2017-05-16 14:11] LABS: HEMOGLOBIN 10.4 g/dL (12.0-16.0); MEAN CELL VOLUME 99.3 fL (80-100); MEAN CORPUSCULAR HEMOGLOBIN 34.4 pg (25-34); NUCLEATED RED BLOOD CELL ABS 0.03 K/uL (0-0); RED CELL DISTRIBUTION WIDTH CV 22.3 % (11.5-14.5); WHITE BLOOD COUNT 3.68 K/uL (4.8-10.8)
[2017-05-16 14:12] LABS: MEAN CORPUSCULAR HGB CONC 34.7 g/dl (32-36); MEAN PLATELET VOLUME 10.4 fL (7.4-10.4); PLATELET COUNT 36 K/uL (130-400)
--- NOTE | 2017-05-16 14:19 | Progress Note ---
Subjective Date of Service: May 16, 2017. Subjective this pt is sleepy and otherwise has no focal abdominal pain, she is requiring precedex for withdrawal, did not respond well to ativan Problem List Medical Problems: (1) Alcohol intoxication Status: Acute (2) Alcoholic cirrhosis Status: Acute (3) Anemia Status: Acute (4) Thrombocytopenia Status: Acute (5) Upper GI bleed Status: Acute Review of Systems Constitutional: + weakness, + fatigue, No fever, No chills Respiratory: No cough, No shortness of breath Cardiac: No chest pain, No edema Abdomen: No pain, No nausea, No vomiting, No diarrhea Psychiatric: + depression symptoms, + substance abuse, No anxiety Objective Vital Signs Date Time Temp Pulse Resp B/P (MAP) Pulse Ox O2 Delivery O2 Flow Rate FiO2 05/16/17 14:00 79 20 121/81 (94) 95 Room Air 05/16/17 12:00 Room Air 05/16/17 11:53 36.6 90 19 100/75 (83) 96 Room Air 05/16/17 10:00 75 16 103/74 (84) 93 Room Air 05/16/17 09:01 78 19 116/78 (91) 93 Room Air 05/16/17 08:02 36.7 81 14 107/81 (90) 93 Room Air 05/16/17 08:00 Room Air 05/16/17 08:00 Room Air 05/16/17 07:01 90 15 121/88 (99) 95 Room Air 05/16/17 06:02 100 17 108/83 (91) 96 05/16/17 04:02 36.7 87 17 121/83 (96) 95 05/16/17 04:00 94 Room Air 05/16/17 03:02 92 18 130/89 (103) 94 05/16/17 02:02 92 19 147/96 (113) 95 05/16/17 01:02 94 21 147/96 (113) 95 05/16/17 00:02 37.6 99 22 138/93 (108) 95 05/15/17 23:59 94 Room Air 05/15/17 23:01 94 22 150/103 (119) 96 05/15/17 22:30 112 25 149/104 (111) 95 05/15/17 22:01 106 22 157/101 (123) 95 05/15/17 21:01 104 21 138/95 (111) 95 05/15/17 20:01 102 25 153/98 (112) 94 05/15/17 20:00 37.7 05/15/17 20:00 94 Room Air 05/15/17 19:01 113 24 152/96 (109) 96 05/15/17 18:01 116 28 130/90 (99) 94 05/15/17 17:01 122 27 140/93 (99) 93 05/15/17 16:39 120 21 141/91 (108) 93 05/15/17 16:39 37.4 119 28 141/91 91 05/15/17 16:01 115 23 123/86 (98) 93 05/15/17 16:00 94 Room Air 05/15/17 16:00 37.4 05/15/17 15:55 37.4 120 24 123/86 94 05/15/17 15:29 37.4 120 23 130/88 93 05/15/17 15:14 37.4 119 28 133/91 95 Physical Exam General Appearance: WD/WN, + mild distress Eyes: normal inspection, sclerae normal Neck: supple, no JVD Respiratory/Chest: chest non-tender, lungs clear, normal breath sounds Cardiovascular: regular rate, rhythm, no murmur Abdomen: normal bowel sounds, soft Extremities: no pedal edema, no calf tenderness Neurologic/Psychiatric: alert, oriented x 3 Laboratory Results Last 24 Hours Test 05/15/17 16:31 05/15/17 17:28 05/15/17 18:02 05/16/17 00:29 Hemoglobin 9.7 g/dL Hematocrit 28.4 % Platelet Count 39 K/uL Total Creatine Kinase 203 U/L Creatine Kinase MB 1.1 ng/ml Creatine Kinase MB Ratio 0.5 Troponin I 0.083 ng/ml Urine Color DK YELLOW Urine Appearance CLEAR Urine pH 6.5 Urine Specific [place] 1.018 Urine Protein NEG Urine Glucose (UA) NEG Urine Ketones NEG Urine Occult Blood 2+ Urine Nitrite NEG Urine Bilirubin NEG Urine Urobilinogen NEG Urine Leukocyte Esterase TRACE Urine WBC (Auto) 1-5 /hpf Urine RBC (Auto) 0-4 /hpf Urine Hyaline Casts (Auto) 1-5 /lpf Urine Epithelial Cells (Auto) >30 /lpf Urine Bacteria (Auto) 2+ Bedside Glucose 138 mg/dl 129 mg/dl Test 05/16/17 00:30 05/16/17 05:07 05/16/17 07:49 05/16/17 14:01 Hemoglobin 10.4 g/dL 9.8 g/dL Hematocrit 31.2 % 29.2 % Platelet Count 40 K/uL 37 K/uL White Blood Count 4.36 K/uL Red Blood Count 2.98 M/uL Mean Corpuscular Volume 98.0 fL Mean Corpuscular Hemoglobin 32.9 pg Mean Corpuscular Hemoglobin Concent 33.6 g/dl Mean Platelet Volume 10.9 fL Neutrophils (%) (Auto) 55.1 % Lymphocytes (%) (Auto) 30.0 % Monocytes (%) (Auto) 11.5 % Eosinophils (%) (Auto) 3.0 % Basophils (%) (Auto) 0.2 % Neutrophils # (Auto) 2.40 K/uL Lymphocytes # (Auto) 1.31 K/uL Monocytes # (Auto) 0.50 K/uL Eosinophils # (Auto) 0.13 K/uL Basophils # (Auto) 0.01 K/uL RDW Standard Deviation 77.4 fL RDW Coefficient of Variation 22.7 % Immature Granulocyte % (Auto) 0.2 % Immature Granulocyte # (Auto) 0.01 K/uL Large Platelets 1+ Anisocytosis PRESENT Stomatocytes 1+ Prothrombin Time 14.1 SECONDS Prothromb Time International Ratio 1.4 Activated Partial Thromboplast Time 28.3 SECONDS Partial Thromboplastin Ratio 1.1 Sodium Level 136 mmol/L Potassium Level 3.4 mmol/L Chloride Level 105 mmol/L Carbon Dioxide Level 27 mmol/L Anion Gap 4.0 mmol/L Blood Urea Nitrogen 7 mg/dl Creatinine 0.44 mg/dl Est Creatinine Clear Calc Drug Dose 152.5 ml/min Estimated GFR () 135.5 Estimated GFR (Non- 116.9 BUN/Creatinine Ratio 15.8 Random Glucose 112 mg/dl Calcium Level 7.1 mg/dl Phosphorus Level 1.7 mg/dl Magnesium Level 1.3 mg/dl Total Bilirubin 2.8 mg/dl Direct Bilirubin 1.8 mg/dl Aspartate Amino Transf (AST/SGOT) 76 U/L Alanine Aminotransferase (ALT/SGPT) 22 U/L Alkaline Phosphatase 121 U/L Total Protein 5.7 gm/dl Albumin 2.5 gm/dl Troponin I 0.026 ng/ml Assessment and Plan 52 F presentes with concern for esophageal variceal bleed, history of the variceal banding and current alcohol abuse Acute blood loss anemia from esophageal bleeding, Protonix drip and octreotide drip begun in the emergency department. continuing protonix Support blood pressure with IVF Transfused 3 units PRBCs, 1 FFP and [address] Cotton from gastroenterology consult performed EGD and banding Dr. Patiño from intensive care medicine will manage in the icu alcohol withdrawal AWSS program with IV Ativan, precedex. Coagulopathy--due to liver failure from alcoholic cirrhosis was given FFP Gamma strep uti on rocephin Thrombocytopenia- remains low ans stablelikely from chronic liver disease Dehydration/hypokalemia--replete with normal saline with KCl 20 mEq Tobacco use disorder counselled for cessation, NicoDerm patch, discussed stopping alcohol pt states she will think about it Hyperglycemia--follow with ssi, A1C does not support diabetes DVT prevention will be mechanical given concern for hemorrhage
[2017-05-16 14:38] LABS: CALCIUM 7.3 mg/dl (8.5-10.1); CREATININE 0.42 mg/dl (0.60-1.20); PHOSPHORUS 3.3 mg/dl (2.5-4.9)
[2017-05-16] MEDS ORDERED: LORAZEPAM 0.5 MG TAB PO PRN (15:30)
[2017-05-16] MEDS ORDERED: LORAZEPAM 2 MG/ML 1 ML VIAL IV PRN ×2 (15:30)
--- NOTE | 2017-05-16 15:38 | GASTROENTEROLOGY PROGRESS NOTE ---
DATE: 05/16/2017 DATE: 05/16/2017 SUBJECTIVE: The patient did well overnight. Chart reviewed, patient examined. The patient has not had any hematemesis, coffee-ground emesis, melena or bright red blood per rectum or reports of stool output by the patient. She is awake, alert and oriented x3. The patient continues on a PPI and octreotide drips and n.p.o. status. REVIEW OF SYSTEMS: Otherwise noncontributory based and 13-point exam except for mentioned above. PHYSICAL EXAMINATION: VITAL SIGNS: At the present time 2 p.m. blood pressure 121/81, respirations 20, heart rate 79, 95% on room air. The patient has been afebrile. HEAD, EYES, EARS, NOSE, AND THROAT: Sclerae are anicteric. Conjunctivae moist. Oral mucosa moist. HEART: Normal S1, S2. LUNGS: Clear to auscultation. ABDOMEN: Soft, flat, nontender, nondistended with normal active bowel sounds, no rebound or guarding. I do not appreciate hepatosplenomegaly. EXTREMITIES: Without clubbing, cyanosis or edema. RECTAL EXAMINATION: Deferred. The patient's blood count has remained stable and is currently 10.4. She received a total of 3 units of packed red blood cells, 2 units of platelets and 1 FFP since admission. LABORATORY STUDIES: White count is 3.68, platelets 36,000, hemoglobin of 10.4. On admission it was 9.7, it fell to 7.5. The patient's electrolytes today BUN and creatinine are 7 and 0.42, potassium 4.0, calcium is slightly low at 7.3. Alkaline phosphatase minimally elevated at 121. AST 76, ALT 22. Admission transaminases were consistent with acute alcoholic hepatitis with 3:1 AST to ALT ratio. IMPRESSION AND PLAN: The patient with history of alcoholic cirrhosis and acute variceal bleed, underwent banding yesterday with 4 bands placed. There has been no ongoing bleeding. The patient is awake, alert and oriented. RECOMMENDATIONS: Would continue observation for DT precautions, I believe it is reasonable to advance the patient's diet with clear liquids as tolerated and perhaps can advance later this evening to full liquids. Would not advance to solid food until sometime tomorrow. Would continue the Protonix and octreotide drips, but can begin to consider eliminating octreotide over the next 24-48 hours. The patient should be on a nonselective beta blocks as blood pressure will tolerate. She will also need repeat EGD in 3-4 weeks for additional banding. Would obtain a stool once available for H. pylori antibody. Continue daily hemoglobin counts. All questions answered.
[2017-05-16] MEDS ORDERED: LORAZEPAM INJ 1 MG in SYRINGE 0.5 ML IV PRN (15:45)
[2017-05-16] MEDS ORDERED: LORAZEPAM INJ 0.5 MG in SYRINGE 0.75 ML IV PRN (15:45)
--- NOTE | 2017-05-16 17:45 | NUR ---
Patient transferred from ICU into [facility]-. Pt transferred via wheelchair, family are present. Pt has cell phone and cell phone groundwater programs director, clothes, medications and chart at the time of transfer. A/O x4, appears calm. Quiet and cooperative. Lungs are diminished on RA. Tolerated clear liquid diet well, denies N/V. No emesis. Crain draining clear yellow. No BM. Ecchymosis to left side of body. OOB x1 assist. R FA IV NS +20K @ 100 and protonix gtt @ 20cc/Hr. Sandastation in R AC @ 20cc/Hr. L hand SL. Oriented to room, encouraged to rign for assist. Bed alarm is on.
[2017-05-16 18:54] LABS: HEMATOCRIT 29.5 % (37-47)
[2017-05-16] MEDS: CHLORDIAZEPOXIDE 25 MG CAP PO SCH (21:57)
[2017-05-17 00:07] VITALS: BP 143/89; PULSE 80; TEMP 37.1; O2SAT 96
[2017-05-17] MEDS: PANTOprazole INJ 40 MG in DEXTROSE 5% 100ML IV SCH ×5 (04:50→23:54)
[2017-05-17] MEDS: CHLORDIAZEPOXIDE 25 MG CAP PO SCH ×3 (04:50→21:34)
--- NOTE | 2017-05-17 07:05 | DIAGNOSTIC IMAGING REPORT ---
CHEST ONE VIEW PORTABLE CLINICAL HISTORY: gi bleed dyspnea COMPARISON STUDY: 05/16/2017 FINDINGS: The bones soft tissues and hemidiaphragms are normal. The cardiomediastinal silhouette is normal. The lungs are clear. The pulmonary vasculature is normal. IMPRESSION: Negative chest. No change from the prior study. Several pre-existing right rib fractures unchanged The above report was generated using voice recognition software. It may contain grammatical, syntax or spelling errors. Electronically signed by: Arslan Kimble M.D. 05/17/2017 7:04 AM Dictated Date/Time: 05/17/2017 7:03 AM
[2017-05-17 07:18] LABS: HEMATOCRIT 30.4 % (37-47); HEMOGLOBIN 10.3 g/dL (12.0-16.0); MEAN CELL VOLUME 100.3 fL (80-100); MEAN CORPUSCULAR HGB CONC 33.9 g/dl (32-36); RED CELL DISTRIBUTION WIDTH CV 21.7 % (11.5-14.5); RED CELL DISTRIBUTION WIDTH SD 78.2 fL (36.4-46.3); WHITE BLOOD COUNT 4.33 K/uL (4.8-10.8)
[2017-05-17 07:28] LABS: INR 1.3 (0.9-1.1); PTT PATIENT 27.2 SECONDS (21.0-31.0)
[2017-05-17 07:33] LABS: MEAN PLATELET VOLUME 11.2 fL (7.4-10.4); PLATELET COUNT 37 K/uL (130-400)
[2017-05-17 07:43] LABS: ALBUMIN 2.6 gm/dl (3.4-5.0); CALCIUM 7.4 mg/dl (8.5-10.1); CREATININE 0.44 mg/dl (0.60-1.20); POTASSIUM 3.8 mmol/L (3.5-5.1)
[2017-05-17 07:44] LABS: BASO % 0.5 %; BASO ABS # 0.02 K/uL (0-0.2); EOS % 3.5 %; EOS ABS # 0.15 K/uL (0-0.5); IG# 0.02 K/uL (0.00-0.02); LYMPH % 22.9 %; LYMPH ABS # 0.99 K/uL (1.2-3.4); MONO % 10.6 %; MONO ABS # 0.46 K/uL (0.11-0.59); NEUT ABS # 2.69 K/uL (1.4-6.5)
--- NOTE | 2017-05-17 07:45 | NUR ---
case management note. per previous briefcase sewer, Patient lives adjacent to her s/o in a double wide home. She is independent at baseline. Patient is employed and drives. Patient verbalizes interest in both outpatient vs inpatient drug and alcohol rehab. List of outpatient facilities provided. Also provided with multiple brochures of inpatient drug and alcohol rehab facilities. Once a decision is made, referrals will be placed. Patient sister, Sada, is POA and a Nurse Practitioner. Paperwork is on patient chart. pt transferred to room 259. report to unit briefcase sewer. appropriate briefcase sewer to follow.
[2017-05-17 07:50] LABS: PHOSPHORUS 2.3 mg/dl (2.5-4.9); TOTAL PROTEIN 5.8 gm/dl (6.4-8.2)
[2017-05-17 07:54] VITALS: BP 142/91; PULSE 91; TEMP 37.2; O2SAT 95
[2017-05-17] MEDS: NICOTINE 14 MG/24 HR TDSY TD SCH (08:13)
--- NOTE | 2017-05-17 08:49 | Hospitalist Progress Note ---
Hospitalist Progress Note Date of Service May 17, 2017. (Sarah Khan PA-C) Subjective Pt evaluation today including: conversation w/ patient, physical exam, chart review, lab review, review of studies Pain: None PO Intake: Good Voiding: no voiding problems The patient was seen and examined this morning. Pt reports doing ok today. Her significant other and her sister Sada are present at bedside. Patient denies any shaking, headache, fatigue or feeling of withdrawal at this time. Crain catheter was removed this morning and she had one episode of incontinence, however has voided a second time at this point and reports having good control of her bladder function. Patient has been drinking and eating without any difficulty. Discussion was held regarding possible discharge and services. Patient's sister , Sada, supportive of a inpatient rehabilitation stay for alcohol use. During my visit with the patient she is unsure of what her wants and needs are at this time, and initially wanted to go home. Case management to provide information of inpatient rehabilitation available in our area. Additional Comments: Constitutional: No fever, sweats or chills Eyes: No diplopia, no worsening or blurred vision ENT: normal hearing, no trouble swallowing Respiratory: No cough, sputum, dyspnea at rest or on exertion Cardiovascular: No chest pain, tightness or palpitations Abdomen: No pain, nausea, vomiting, diarrhea or constipation Musculoskeletal: + Lower back pain status post fall, feels sore. No joint pain , calf pain, swelling Neurologic: No weakness, numbness/tingling, or balance problems, no shaking (Sarah Khan PA-C) Objective Vital Signs Date Time Temp Pulse Resp B/P (MAP) Pulse Ox O2 Delivery O2 Flow Rate FiO2 05/17/17 07:55 Room Air 05/17/17 07:54 37.2 91 18 142/91 (108) 95 Room Air 05/17/17 00:07 37.1 80 18 143/89 (107) 96 Room Air 05/17/17 00:00 Room Air 05/16/17 16:50 36.4 94 18 126/88 (101) 93 Room Air 05/16/17 16:15 36.9 88 22 97 05/16/17 16:00 Room Air 05/16/17 15:30 36.9 88 22 129/93 (105) 97 Room Air 05/16/17 14:00 79 20 121/81 (94) 95 Room Air 05/16/17 12:00 Room Air 05/16/17 11:53 36.6 90 19 100/75 (83) 96 Room Air 05/16/17 10:00 75 16 103/74 (84) 93 Room Air 05/16/17 09:01 78 19 116/78 (91) 93 Room Air (Sarah Khan PA-C) Physical Exam Notes: General: awake, alert, no apparent distress, flat affect, minimally verbally involved in conversation. Head: Normocephalic, atraumatic ENT: PERRL, EOMI, no pharyngeal exudate, mucous membranes moist Chest: Clear to auscultation, on room air, no adventitious breath sounds Cardiac: Regular rate and rhythm, no murmur, no JVD, normal peripheral pulses, good capillary refill Abdominal: NABS x 4 quadrants, soft, nontender to palpation, no rebound, guarding or tenderness Extremities: Normal inspection, no peripheral edema or erythema, calfs nontender to palpation Psych: Normal mood and affect Neuro: AAO x 3, speech is clear, no peripheral sensory deficits, no asterixis (Sarah Khan PA-C) Laboratory Results Last 24 Hours Test 05/16/17 11:27 05/16/17 14:01 05/16/17 18:35 05/16/17 20:06 Bedside Glucose 147 mg/dl 140 mg/dl White Blood Count 3.68 K/uL Red Blood Count 3.02 M/uL Hemoglobin 10.4 g/dL 10.0 g/dL Hematocrit 30.0 % 29.5 % Mean Corpuscular Volume 99.3 fL Mean Corpuscular Hemoglobin 34.4 pg Mean Corpuscular Hemoglobin Concent 34.7 g/dl RDW Standard Deviation 78.0 fL RDW Coefficient of Variation 22.3 % Platelet Count 36 K/uL Mean Platelet Volume 10.4 fL Nucleated RBC Absolute Count (auto) 0.03 K/uL Nucleated Red Blood Cells % 0.9 % Sodium Level 137 mmol/L Potassium Level 4.0 mmol/L Chloride Level 106 mmol/L Carbon Dioxide Level 26 mmol/L Anion Gap 5.0 mmol/L Blood Urea Nitrogen 7 mg/dl Creatinine 0.42 mg/dl Est Creatinine Clear Calc Drug Dose 159.8 ml/min Estimated GFR () 137.5 Estimated GFR (Non- 118.7 BUN/Creatinine Ratio 16.2 Random Glucose 105 mg/dl Calcium Level 7.3 mg/dl Phosphorus Level 3.3 mg/dl Magnesium Level 2.1 mg/dl Test 05/17/17 06:57 05/17/17 07:46 White Blood Count 4.33 K/uL Red Blood Count 3.03 M/uL Hemoglobin 10.3 g/dL Hematocrit 30.4 % Mean Corpuscular Volume 100.3 fL Mean Corpuscular Hemoglobin 34.0 pg Mean Corpuscular Hemoglobin Concent 33.9 g/dl Platelet Count 37 K/uL Mean Platelet Volume 11.2 fL Neutrophils (%) (Auto) 62.0 % Lymphocytes (%) (Auto) 22.9 % Monocytes (%) (Auto) 10.6 % Eosinophils (%) (Auto) 3.5 % Basophils (%) (Auto) 0.5 % Neutrophils # (Auto) 2.69 K/uL Lymphocytes # (Auto) 0.99 K/uL Monocytes # (Auto) 0.46 K/uL Eosinophils # (Auto) 0.15 K/uL Basophils # (Auto) 0.02 K/uL RDW Standard Deviation 78.2 fL RDW Coefficient of Variation 21.7 % Immature Granulocyte % (Auto) 0.5 % Immature Granulocyte # (Auto) 0.02 K/uL Giant Platelets 1+ Anisocytosis PRESENT Prothrombin Time 14.0 SECONDS Prothromb Time International Ratio 1.3 Activated Partial Thromboplast Time 27.2 SECONDS Partial Thromboplastin Ratio 1.0 Sodium Level 136 mmol/L Potassium Level 3.8 mmol/L Chloride Level 106 mmol/L Carbon Dioxide Level 23 mmol/L Anion Gap 7.0 mmol/L Blood Urea Nitrogen 6 mg/dl Creatinine 0.44 mg/dl Est Creatinine Clear Calc Drug Dose 152.5 ml/min Estimated GFR () 135.5 Estimated GFR (Non- 116.9 BUN/Creatinine Ratio 14.2 Random Glucose 96 mg/dl Calcium Level 7.4 mg/dl Phosphorus Level 2.3 mg/dl Magnesium Level 1.9 mg/dl Total Bilirubin 3.4 mg/dl Direct Bilirubin 2.2 mg/dl Aspartate Amino Transf (AST/SGOT) 81 U/L Alanine Aminotransferase (ALT/SGPT) 24 U/L Alkaline Phosphatase 130 U/L Total Protein 5.8 gm/dl Albumin 2.6 gm/dl Bedside Glucose 108 mg/dl (Sarah Khan PA-C) Assessment and Plan 52 F presentes with concern for esophageal variceal bleed, history of the variceal banding and current alcohol abuse Acute blood loss anemia from esophageal bleeding, Protonix drip and octreotide drip begun in the emergency department. - continuing protonix IV BID - can transition to PO - Off octreotide drip now - IVF can be turned off at this point at pt with good oral intake - Transfused 3 units PRBCs, 1 FFP and 1 platelets - Dr. Cotton from gastroenterology consulted- performed EGD and banding on - Continue on librium 25 mg Q8H and taper off starting tomorrow to 25 mg BID. - Patient does not feel somnolent and tired with Librium on board. Off Precedex drip, can use Ativan IV when necessary but has not needed it since starting Librium. Coagulopathy--due to liver failure from alcoholic cirrhosis - was given 1 U FFP - Liver enzymes improving, INR= 1.3 Alcohol use -Discussion was held regarding cessation today, case management to assist with discharge planning as the patient may benefit from inpatient rehabilitation for alcohol use. Support from sister provided today Pt likely to discharge to [facility] in [place] for inpatient rehabilitation tomorrow Gamma strep uti - on rocephin day #3 - cipro allergy so will switch to Amoxicillin 500 mg Q12 x 4 more days to complete a 7d course Thrombocytopenia - remains low ans stable likely from chronic liver disease Dehydration/hypokalemia - Improved, BMP stable Tobacco use disorder counselled for cessation - NicoDerm patch Hyperglycemia- - Can stop insulin sliding scale at this time - glucose remains stable. - A1C does not support diabetes DVT ppx: teds, scds, no chemical d/t concern for hemorrhage CODE STATUS: Full code Disposition: Patient from home, likely discharge tomorrow to [facility] for inpatient alcohol rehabilitation (Sarah Khan PA-C) PA Physician Supervision Note: I interviewed and examined the patient. Discussed with Sarah Khan PAC and agree with findings and plan as documented in the note. Any exceptions or clarifications are listed here: None Patient has recovered from her esophageal varices bleed secondary to cirrhosis secondary to alcohol abuse. Her sister he was recovering alcoholic and her significant other are at the bedside and we discussed abstinence and likely referral to inpatient treatment. We instructed the family and the patient achieved to make these referrals were self. Patient is mentating well on oral Librium and has no signs of withdrawal currently Blood pressure is mildly elevated to 140/90 she has no tremor she's not tachycardic her heart is regular her affect is flat she is awake alert appropriate Esophageal variceal bleed requiring transfusion and is emergent banding by Dr. Cotton, the patient will be out on a Librium taper with recommendations for abstinence from alcohol and strong consideration for inpatient rehabilitation Documented By: Sal Pelaez (Sal Pelaez M.D.)
--- NOTE | 2017-05-17 08:58 | NUR ---
ID Note: Pt. is A&Ox4. vss. denies pain. tolerates a clear liquid diet well. IV's infusing per MD order. stood at bedside with contact guardx2. D/C'd Crain cath patient due to void by 1615. D/C planning per social work supervisor note. Will continue to monitor patient.
[2017-05-17] MEDS: CEFTRIAXONE SOD INJ 1 GM in DEXTROSE 5% ADD-VANTAGE 50ML 50 ML IV SCH (09:20)
[2017-05-17] MEDS: THIAMINE HCL INJ 100 MG in SYRINGE 9 ML IV SCH (10:35)
[2017-05-17] MEDS: FoLIC ACID INJ 1 MG in SYRINGE 9.8 ML IV SCH (10:35)
[2017-05-17] MEDS: OCTREOTIDE ACETATE INJ 500 MCG in NSS 100ML IV SCH ×2 (10:35→21:29)
--- NOTE | 2017-05-17 12:38 | NUR ---
Case Management- Met with patient and family in room. Patient reports she is willing to go to inpatient treatment. She gave me permission to contact [facility] and sent referral of clinical documentation on \her behalf this was completed. Did place a call to [facility] on a counselor to call me back. CM following Addendum: 05/17/17 at 1410 by Nereida Jones SERV spoke with ruddy from [facility] they have the paperwork that was faxed over nursing was reviewing the paperwork currently. Provided patients room phone number for patient interview. Per Ruddy if patient is agreeable and their medical odirector signs off on this she potentially can be accepted tomorrow. Addendum: 05/17/17 at 1516 by Nereida Jones SERV spoke with eber at [facility] the medical staff has approved she is accepted pending a phone interview the attempted ppto do the interview patient asked to call them back later. Per eber she can accept tomorrow and provide transport once this is complete her [pcontact is [phone] ext [phone]
[2017-05-17] MEDS: NSS + 20MEQ KCL 1000ML 1,000 ML IV SCH (13:21)
[2017-05-17] MEDS ORDERED: NURSING VERBAL MED ORDER ONE (13:30)
--- NOTE | 2017-05-17 14:01 | NUR ---
executive advisor [facility]: Follow up appointments arranged and info added to the DC instructions - "Please, follow up at Dr. Khanna's office with Raeann TOBAR on SundayMay 25 at 10:10 am. *If you need to change this appointment you can call the office at [phone]. Please, follow up at [facility] with Dr. Jensen on SundayMay 30 at 10:20 am. *This office is located at [address] [place] [address]. If you need to change this appointment you can call the office at [phone]."
[2017-05-17 15:22] VITALS: BP 133/94; PULSE 85; TEMP 36.9; O2SAT 97
--- NOTE | 2017-05-17 20:21 | GASTROENTEROLOGY PROGRESS NOTE ---
DATE: 05/17/2017 SUBJECTIVE: Chart reviewed and the patient examined. The patient is doing well, has not had any bowel movements, nausea, vomiting, hematemesis or coffee-ground emesis. There were no features to suggest DTs. The patient is hungry and would like to try and advance her diet tomorrow. She has been tolerating clear liquids by her history. Historically, the patient had been on nadolol, but had stopped this for unclear reasons before seeing Dr. Jensen in the GI clinic. CURRENT MEDICATIONS: Include Librium 25 mg every 8 hours, p.r.n. lorazepam, thiamine, folic acid, dexmedetomidine, nicotine patch, octreotide drip, Protonix drip, p.r.n. promethazine and Zofran. REVIEW OF SYSTEMS: Otherwise noncontributory based on 13-point exam except for mentioned above. The patient denies melena, bright red blood per rectum, coffee-ground emesis or hematemesis. LABORATORY STUDIES: Show that her hemoglobin is stable at 10.3; she has not required any additional blood transfusions including packed cells, FFP or platelets. Platelet count is low at 37,000, white count 4.3. Serum chemistry -BUN and creatinine are 6 and 0.4, blood sugars satisfactory in the low 100 range. Her total and direct bilirubin of 3.4 with direct 2.2, AST 81, ALT 24, alkaline phosphatase 130, her phosphorus level is low at 2.3. PHYSICAL EXAMINATION: VITAL SIGNS: Today - afebrile at 36.9, blood pressure 133/94, respirations 18, pulse 85, 97% on room air. GENERAL: The patient is awake, alert and oriented x3. HEENT: Sclerae mildly icteric. Conjunctivae moist. Oral mucosa moist. HEART: Normal S1, S2. LUNGS: Clear to auscultation. ABDOMEN: Soft, nontender, nondistended with normal bowel sounds. There is no evidence of rebound or guarding. I do not appreciate ascites or shifting dullness. EXTREMITIES: Without clubbing, cyanosis or edema. RECTAL: Deferred. IMPRESSION AND PLAN: The patient with a history of alcoholic cirrhosis with a markedly elevated alcohol level on admission. Regarding this aspect, inpatient drug and alcohol rehabilitation, I believe this would be worthwhile of strict avoidance of alcohol in the future may preserve liver function and reduce portal pressure and a chance of subsequent bleeding. She will; however, need banding in approximately 3-4 weeks to continue esophageal variceal eradication and this will be arranged as an outpatient at [facility]. It may be reasonable to start her on nadolol, titrated to 25% reduction in heart rate for the purposes of reducing portal pressures. Regarding the octreotide, would maintain that drip for approximately 24 hours more and then can be discontinued. The PPI drip can be converted to oral therapy tomorrow and her diet can be slowly advanced initially with a soft diet and advanced as tolerated. Continue DT prophylaxis. The patient's phosphorus level is low and would correct and monitor for return to a normal range. All questions answered for the patient. The patient will follow with Dr. Jensen upon discharge from the hospital.
[2017-05-17 23:24] VITALS: BP 128/85; PULSE 82; TEMP 37.3; O2SAT 98
[2017-05-18] MEDS: OCTREOTIDE ACETATE INJ 500 MCG in NSS 100ML IV SCH (05:50)
[2017-05-18] MEDS: CHLORDIAZEPOXIDE 25 MG CAP PO SCH (05:50)
[2017-05-18] MEDS: PANTOprazole INJ 40 MG in DEXTROSE 5% 100ML IV SCH (05:50)
[2017-05-18 07:47] VITALS: BP 134/87; PULSE 74; TEMP 37; O2SAT 97
[2017-05-18 08:06] LABS: HEMATOCRIT 33.9 % (37-47); HEMOGLOBIN 11.2 g/dL (12.0-16.0); MEAN CELL VOLUME 102.1 fL (80-100); MEAN CORPUSCULAR HEMOGLOBIN 33.7 pg (25-34); RED CELL DISTRIBUTION WIDTH CV 21.4 % (11.5-14.5); RED CELL DISTRIBUTION WIDTH SD 78.3 fL (36.4-46.3)
[2017-05-18 08:08] LABS: PLATELET COUNT 41 K/uL (130-400)
[2017-05-18 08:13] LABS: INR 1.3 (0.9-1.1)
[2017-05-18 08:36] LABS: BASO % 0.5 %; BASO ABS # 0.02 K/uL (0-0.2); CALCIUM 7.8 mg/dl (8.5-10.1); CREATININE 0.6 mg/dl (0.60-1.20); EOS ABS # 0.12 K/uL (0-0.5); IG# 0.02 K/uL (0.00-0.02); LYMPH ABS # 1.08 K/uL (1.2-3.4); MONO % 12.3 %; MONO ABS # 0.49 K/uL (0.11-0.59); NEUT % 56.7 %; NEUT ABS # 2.27 K/uL (1.4-6.5); POTASSIUM 3.5 mmol/L (3.5-5.1)
[2017-05-18 08:44] LABS: PHOSPHORUS 3.2 mg/dl (2.5-4.9); TOTAL PROTEIN 6.5 gm/dl (6.4-8.2)
[2017-05-18] MEDS ORDERED: AMOXICILLIN 500 MG CAP PO SCH (09:00)
[2017-05-18] MEDS: NICOTINE 14 MG/24 HR TDSY TD SCH (09:35)
[2017-05-18] MEDS ORDERED: PANT1TAB4 PO ×2 (11:05→15:41)
[2017-05-18] MEDS ORDERED: NICO14DI5 TD ×2 (11:05→15:41)
[2017-05-18] MEDS ORDERED: THIA100T27 PO ×2 (11:05→15:41)
[2017-05-18] MEDS ORDERED: FLV400 PO ×2 (11:05→15:41)
[2017-05-18] MEDS ORDERED: AMX500 PO ×2 (11:05→15:41)
[2017-05-18] MEDS ORDERED: LBR25 PO ×2 (11:05→15:41)
--- NOTE | 2017-05-18 11:05 | Discharge Instructions ---
Discharge Instructions Date of Service May 18, 2017. Admission Reason for Admission: Esophageal Varices With Bleeding, Thrombocytopenia Discharge Discharge Diagnosis / Problem: Esophageal Varices with bleeding, thrombocytopenia, etoh abuse Discharge Goals Goal(s): Decrease discomfort, Improve function, Increase independence, Improve disease control Activity Recommendations Activity Level: Up Ad Wilda Lifting Limitations: none, gradually increase as tolerated Exercise/Sports Limitations: none, gradually increase as tolerated Shower/Bathe: no limitations . Additional Information Patient informed of condition: Yes Advance Directives: Yes DNR: No Level of Care: Acute Rehab (alcohol ) Communicable Disease: No Prognosis: Stable Instructions / Follow-Up Instructions / Follow-Up You were admitted to [facility] with esophageal varices with acute bleed requiring banding, thrombocytopenia, acute elevate liver enzymes, and alcohol abuse. During your stay here you were treated with intravenous fluids, medications for gastric healing, and required multiple units of blood for transfusion. Imaging studies which were completed include EGD and banding of esophageal varicies. Medications: You were started on a medication called librium for alcohol withdrawal. Take Librium 25 mg as directed below: Take next dose this evening 05/18. Take 25 mg twice daily x 2 more days starting 05/19. Take 25 mg once at bedtime x 3 more days starting on 05/21 and finish last dose on 05/23. Take Nadolol 20 mg daily in the morning for portal hypertension. Continue taking multivitamin, folic acid, and thiamine as supplements to a normal diet. DO NOT DRINK ALCOHOL. You are being discharged to [facility] for inpatient rehabilitation for alcohol use. Appointments: Follow up with your Primary Care Provider within 1 week. Follow up with gastroenterology within 2-3 weeks. Current Hospital Diet Patient's current hospital diet: Regular Diet Discharge Diet Recommended Diet: Regular Diet (Advance as tolerated, starting with a mechanical soft diet) Procedures Procedures Performed: Esophagogastroduodenoscopy Pending Studies Studies pending at discharge: no Laboratory Results Hemoglobin A1c Test 05/15/17 06:43 Range/Units Estimated Average Glucose 97 mg/dl Hemoglobin A1c 5.0 4.5-5.6 % Medical Emergencies . Who to Call and When: Medical Emergencies: If at any time you feel your situation is an emergency, please call 911 immediately. . Non-Emergent Contact Non-Emergency issues call your: Primary Care Provider Call Non-Emergent contact if: you have a fever, your pain is not controlled, you have any medication questions other concerns with your health. Call 911 or go directly to the Emergency Department if you experience any of the following: Chest pain, chest tightness, shortness of breath, abdominal pain , lightheadedness, dizziness, gastrointestinal bleeding, or have any other concerns regarding your health. . Past History Medical & Surgical History: (1) Esophageal varices with bleeding (2) Alcoholic cirrhosis (3) Alcohol intoxication (4) Thrombocytopenia (5) Cirrhosis of liver with ascites . "Provider Documentation" section prepared by Molly Khan. . Core Measure Problem Core Measures: None
[2017-05-18 12:01] VITALS: BP 134/87; PULSE 74; TEMP 37; O2SAT 97
[2017-05-18] MEDS ORDERED: NADO20TA PO ×2 (12:13→15:41)
--- NOTE | 2017-05-18 12:39 | NUR ---
Case Management: spoke with Odilia from [facility] this am. Pt did do her phone interview with them. Odilia wanted to know how pt was doing with her diet as she was still on clears and how she was doing physically as she c/o being weak. I spoke with Molly Hogue and got an update that I provided to Odilia but she stated their medical office worker would like to have an updated progress note from the doctor. Molly is going to provide her assessment of pt and I will fax it to [facility] and await their determination.
--- NOTE | 2017-05-18 12:48 | Discharge Summary ---
Discharge Summary Date of Service May 18, 2017. Discharge Summary Admission Date: May 15, 2017 at 00:29 Discharge Date: May 18, 2017 Discharge Disposition: Rehab ([facility] alcohol inpatient rehab) Principal Diagnosis: Esophageal varices s/p banding, Elevated transaminases, etoh abuse Problems/Secondary Diagnoses: Acute blood loss anemia from esophageal bleeding Coagulopathy--due to liver failure from alcoholic cirrhosis Alcohol abuse Gamma strep uti Thrombocytopenia Dehydration Hypokalemia Tobacco use disorder counselled for cessation Hyperglycemia- resolved Immunizations: Have You Had Influenza Vaccine: Unknown History of Tetanus Vaccine?: Unknown History of Pneumococcal: Unknown History of Hepatitis B Vaccine: Unknown Procedures: CHEST ONE VIEW PORTABLE 05/16/17 FINDINGS: Cardiomediastinal silhouette normal. Lungs and pleural spaces clear. Osseous structures normal. Upper abdomen normal. IMPRESSION: 1. No acute cardiopulmonary disease. CHEST ONE VIEW PORTABLE 05/17/17 FINDINGS: The bones soft tissues and hemidiaphragms are normal. The cardiomediastinal silhouette is normal. The lungs are clear. The pulmonary vasculature is normal. IMPRESSION: Negative chest. No change from the prior study. Several pre-existing right rib fractures unchanged EGD 05/15/17 Impression: Recently bleeding grade II esophageal varices. Incompletely eradicated. Banded. Red blood in the gastric fundus. Acute gastritis Nrmal examined duodenum Red blood int he gastric fundus. No specimens collected. Recommendation: NPO Continue octreotide and protonix gtts Stool for H. pylori Repeat Upper endoscopy in 4 weeks for retreatment Consultations: [facility] Gastroenterology Medication Reconciliation New Medications: Nadolol (Corgard) 20 Mg Tab 1 TAB PO DAILY for 30 Days, #30 TAB 0 Refills Amoxicillin (Amoxicillin) 500 Mg Cap 500 MG PO Q12 for 3 Days, #7 CAP Take next dose on 05/18 in evening. Finish on 05/21 Chlordiazepoxide (Chlordiazepoxide HCl) 25 Mg Cap 25 MG PO UD for 6 Days, #8 CAP Take next dose on 05/18 in evening. Take twice daily x 2 more days. Then take at night x 3 days and finish. Folic Acid (Folic Acid) 400 Mcg Tab 400 MCG PO QAM for 30 Days, #30 TAB Nicotine (Nicoderm Cq 14MG Patch) 14 Mg/24 Hr Dis 1 PATCH TD QAM for 21 Days, #21 PATCH Pantoprazole (Pantoprazole Sodium) 40 Mg Tab 40 MG PO BID for 30 Days, #60 TAB Thiamine HCl (Vitamin B-1) 100 Mg Tab 100 MG PO QAM for 30 Days, #30 TAB Continued Medications: Gabapentin (Gabapentin) 600 Mg Tab 600 MG PO TID Multivitamin (Multivitamin) Tab 1 TAB PO DAILY Discontinued Medications: [Normanal] () 1 DOSE PO DAILY Discharge Exam The patient was seen and examined this morning. Pt reports doing well today. She was seen up ambulating the halls with IV pole, having no difficulty. Her sister was walking with her. She reports having done this 4x already and feels well with ambulation.She denies any shaking or feelings of withdrawal including headache, palpitations, sweating, or anxiety. Pt reports she had tried some soup today and is requesting a diet upgrade. She is also asking to shower. Pt denies any acute complaints including fever, chills, sweats, abdominal pain, cramping, issues with diet or tolerating po intake. She is passing gas but has not yet had a BM. Pt reports no issues with urination, no dysuria, hematuria, cramping or retention. She is agreeable to going to inpatient rehab today at [facility] pending approval from their facility. Pt completed the phone interview already. ROS Constitutional: No fever, sweats or chills Eyes: No diplopia, no worsening or blurred vision ENT: normal hearing, no trouble swallowing Respiratory: No cough, sputum, dyspnea at rest or on exertion Cardiovascular: No chest pain, tightness or palpitations Abdomen: No pain, nausea, vomiting, diarrhea or constipation Musculoskeletal: + Lower back pain status post fall, feels sore. No joint pain , calf pain, swelling Neurologic: No weakness, numbness/tingling, or balance problems, no shaking PE: General: awake, alert, no apparent distress, affect brighter today, participates in conversation without hesitation. Head: Normocephalic, atraumatic ENT: PERRL, EOMI, no pharyngeal exudate, mucous membranes moist Chest: Clear to auscultation, on room air, no adventitious breath sounds Cardiac: Regular rate and rhythm, no murmur, no JVD, normal peripheral pulses, good capillary refill Abdominal: NABS x 4 quadrants, soft, nontender to palpation, no rebound, guarding or tenderness Extremities: Normal inspection, no peripheral edema or erythema, calfs nontender to palpation. Ecchymosis over the left olecranon healing. Psych: Normal mood and affect Neuro: AAO x 3, speech is clear, no peripheral sensory deficits, no asterixis Hospital Course History of Present Illness Source: patient The patient is a 52-year-old female who presents to the emergency department with a single episode of hematemesis of approximately 5 cups of blood approximately 3 hours prior to arrival. She began vomiting earlier in the day, without blood. She does have a history of alcoholic liver cirrhosis and banded esophageal varices. She reports that she was drinking heavily today. She has not been on aspirin or blood thinners, but is taking ibuprofen for a fall that occurred last week. Physical Exam The patient is awake, well-developed and adequately nourished, alert and oriented 3, normocephalic and atraumatic, lying in bed and in no acute distress. HEENT--PERRL, EOMI, mucous membranes and oropharynx dry. Neck--supple, no JVD or bruits, thyroid normal, trachea midline, no adenopathy. Heart--normal S1 and S2, no extra beats, no murmurs, rubs or gallops. Lungs--clear bilaterally with good air movement, no respiratory distress, no accessory muscle use. Abdomen--normal bowel sounds and soft, nontender and nondistended, no hernias or masses, no organomegaly. Extremities--no cyanosis, clubbing or edema. There are good distal pulses b/l. Dermatologic--normal skin turgor, normal color, warm and dry, no abnormal lymph nodes, no rash. Neurologic--cranial nerves II through XII grossly intact. Rheumatologic--normal range of motion. Psychiatric--normal affect. Hospital Course: 52 F presented with concern for esophageal variceal bleed, history of the variceal banding and current alcohol abuse. Pt was started on a protonix and octreotide gtt in the ER. Gastroenterology was consulted and took the pt for EGD on 05/15 which resulted in esophageal varices banding. She required 1 U PRBCs, 1 U PPF and 1 Platelets at time of admission to correct coagulopathy ( likely secondary to liver cirrhosis and chronic alcohol abuse), and thrombocytopenia. Thrombocytopenia resolved prior to discharge. Pt liver enzymes slowly improved. She was admitted to the ICU and kept on a precedex gtt for withdrawal and was able to be titrated off this - pt was weaned to librium and will continue to finish the taper after discharge x 6 more days. Acute blood loss anemia from esophageal bleeding, Protonix drip and octreotide drip begun in the emergency department. - continuing protonix IV BID - can transition to PO - Octreotide gtt d/c prior to discharge. - IVF can be turned off at this point at pt with good oral intake - Transfused 3 units PRBCs, 1 FFP and 1 platelets - Dr. Cotton from gastroenterology consulted- performed EGD and banding on - Continue on librium 25 mg taper - Patient does not feel somnolent or tired with Librium on board. Off Precedex drip, can use Ativan IV when necessary but has not needed it since starting Librium. Coagulopathy--due to liver failure from alcoholic cirrhosis - was given 1 U FFP - Liver enzymes improving, INR= 1.3 Alcohol use -Discussion was held regarding cessation today, case management to assist with discharge planning as the patient may benefit from inpatient rehabilitation for alcohol use. Support from sister provided today Pt planned discharge to [facility] in [place] for inpatient rehabilitation today Gamma strep uti - on rocephin day #3 - cipro allergy so will switch to Amoxicillin 500 mg Q12 x 4 more days starting 05/18 to complete a 7d course Thrombocytopenia - remains low and stable likely from chronic liver disease Dehydration/hypokalemia - Improved, BMP stable Tobacco use disorder counselled for cessation - NicoDerm patch Hyperglycemia- - Can stop insulin sliding scale at this time - glucose remains stable. - A1C does not support diabetes DVT ppx: teds, scds, no chemical d/t concern for hemorrhage CODE STATUS: Full code Disposition: Patient from [place], dc to [facility] for inpatient alcohol rehabilitation today [place] Physician Supervision Note: I interviewed and examined the patient. Discussed with Sarah Khan PAC and agree with findings and plan as documented in the note. Any exceptions or clarifications are listed here: None Patient had a good night's able to eat walk and participate in all of her activities of daily living she'll be discharged to home self transport to [facility] for alcohol rehabilitation vital signs are stable physical examination is without change heart is regular lungs are clear she is a significant anxiety or signs of alcohol withdrawal. She'll be discharged home on Adderall for portal hypertension amoxicillin to complete due to her esophageal bleeding and tapering dose of Librium Documented By: Sal Pelaez Total Time Spent: Greater than 30 minutes This includes examination of the patient, discharge planning, medication reconciliation, and communication with other providers. Discharge Instructions Please refer to the electronic Patient Visit Report (Discharge Instructions) for additional information. Follow-Up Follow up with your Primary Care Provider within 1 week. Follow up with gastroenterology within 2-3 weeks. Additional Copies To Linn Khanna M.D.
[2017-05-18 15:36] VITALS: BP 130/87; PULSE 97; TEMP 36.9; O2SAT 97
[2017-05-18] MEDS ORDERED: MULT-506 PO (15:41)
[2017-05-18] MEDS ORDERED: NRN600 PO (15:41)
[2017-05-18] MEDS ORDERED: PANTOprazole SOD 40 MG TAB PO SCH (21:00)
[2017-05-18] MEDS ORDERED: CHLORDIAZEPOXIDE 25 MG CAP PO SCH (21:00)
[2017-05-19] MEDS ORDERED: THIAMINE HCL 100 MG TAB PO SCH (09:00)
[2017-05-19] MEDS ORDERED: FoLIC ACID TAB 400 MCG TAB PO SCH (09:00)
== END 2017-05-18 16:20 | disposition other institution (70) | DRG 432 ==
LOC: C.EDB 21:21 → C.MSICU 05-15 00:29 → EDBEDREQ 05-15 00:34 → ENRESERV 05-15 00:42 → C.MS2W 05-16 16:33
PROVIDERS: ADMIT Hospitalist; ATTEND Internal Medicine
PROC: 06L38CZ Occlusion of Esophageal Vein with Extraluminal Device, Via Natural or Artificial Opening Endoscopic (ICD-10-PCS; principal; 2017-05-15 11:00)
DX: K70.30 Alcoholic cirrhosis of liver without ascites (principal); I85.11 Secondary esophageal varices with bleeding; K92.0 Hematemesis; D62 Acute posthemorrhagic anemia; D68.4 Acquired coagulation factor deficiency; N39.0 Urinary tract infection, site not specified; K76.6 Portal hypertension; K86.0 Alcohol-induced chronic pancreatitis; F10.230 Alcohol dependence with withdrawal, uncomplicated; K29.00 Acute gastritis without bleeding; F17.200 Nicotine dependence, unspecified, uncomplicated; K31.89 Other diseases of stomach and duodenum; D69.59 Other secondary thrombocytopenia; E86.0 Dehydration; B95.4 Other streptococcus as the cause of diseases classified elsewhere; E87.6 Hypokalemia; R73.9 Hyperglycemia, unspecified; K70.40 Alcoholic hepatic failure without coma; G62.9 Polyneuropathy, unspecified

== ENCOUNTER 2017-07-26 22:08 | Inpatient (IN) | payer BC, OTHER ==
[~2017-07-26] VITALS: Ht 172.7 cm; Wt 69.7 kg
[~2017-07-26 22:08] MED LIST changes: -ALBUAER2 INH; +AMX500 PO; -CHOL100040 PO; -FERR325T51 PO; +FLV400 PO; -FURO-85 PO; -GABA-113 PO; +LBR25 PO; +MULT-506 PO; +NADO20TA PO; +NICO14DI5 TD; +NRN600 PO; +PRT40 PO; -SPIR25TA PO; +THM100 PO
[2017-07-26] MEDS ORDERED: SODIUM CHLORIDE 0.9% 1000ML 2,000 ML IV STA (22:17)
[2017-07-26] MEDS ORDERED: OCTREOTIDE IV BOLUS & DRIP IV STA (22:17)
[2017-07-26] MEDS ORDERED: SODIUM CHLORIDE 0.9% 1000ML 1,000 ML IV STA (22:17)
[2017-07-26] MEDS ORDERED: ONDANSETRON INJ 2 MG/ML 2 ML VIAL IV STA (22:20)
[2017-07-26] MEDS ORDERED: PANTOprazole INJ 80 MG in DEXTROSE 5% 100ML IV STA (22:23)
[2017-07-26] MEDS ORDERED: OCTREOTIDE ACETATE INJ 500 MCG in NSS 100ML IV SCH (22:30)
[2017-07-26] MEDS ORDERED: PANTOprazole INJ 40 MG in DEXTROSE 5% 100ML IV SCH (22:30)
[2017-07-26] MEDS ORDERED: OCTREOTIDE BOLUS FROM BAG IV ONE (22:30)
--- NOTE | 2017-07-26 22:33 | EMERGENCY ROOM VISIT NOTE ---
ED Visit Note First contact with patient: 22:32 I have personally seen and evaluated the patient with the physician refinery operator assistant. I agree with the diagnostic/management decisions and have personally been involved in these decisions and agree with the diagnosis.
[2017-07-26 22:44] LABS: HEMATOCRIT 28.4 % (37-47); HEMOGLOBIN 8.9 g/dL (12.0-16.0); MEAN CELL VOLUME 95.6 fL (80-100); MEAN CORPUSCULAR HGB CONC 31.3 g/dl (32-36); RED CELL DISTRIBUTION WIDTH CV 18.7 % (11.5-14.5); RED CELL DISTRIBUTION WIDTH SD 65.9 fL (36.4-46.3); WHITE BLOOD COUNT 5.71 K/uL (4.8-10.8)
[2017-07-26 22:52] LABS: ISTAT CREATININE 1.5 mg/dl (0.6-1.3); ISTAT IONIZED CALCIUM 0.9 mmol/l (1.12-1.32); ISTAT POTASSIUM 3.8 mEq/L (3.3-5.0)
[2017-07-26 22:53] LABS: INR 1.5 (0.9-1.1); PTT PATIENT 27.9 SECONDS (21.0-31.0)
[2017-07-26] MEDS ORDERED: PIPERACILLIN/TAZOBACTAM 4.5 GM/100ML D5W IV STA (22:55)
[2017-07-26 23:01] LABS: ALBUMIN 2.7 gm/dl (3.4-5.0); ALT/SGPT 40 U/L (12-78); BLOOD UREA NITROGEN 8 mg/dl (7-18); CALCIUM 7.4 mg/dl (8.5-10.1); CARBON DIOXIDE 24 mmol/L (21-32); CREATININE 0.91 mg/dl (0.60-1.20); GLUCOSE 144 mg/dl (70-99); LIPASE 231 U/L (73-393); POTASSIUM 3.7 mmol/L (3.5-5.1); SODIUM 142 mmol/L (136-145)
[2017-07-26 23:04] LABS: ALKALINE PHOSPHATASE 187 U/L (45-117); AST/SGOT 186 U/L (15-37); CKMB < 0.5 ng/ml (0.5-3.6); TOTAL PROTEIN 6.3 gm/dl (6.4-8.2)
[2017-07-26 23:11] LABS: MEAN PLATELET VOLUME 10.7 fL (7.4-10.4); PLATELET COUNT 35 K/uL (130-400)
[2017-07-26] MEDS ORDERED: PHYTONADIONE INJ 10 MG in SODIUM CHLORIDE 0.9% 50ML 50 ML IV ONE (23:15)
[2017-07-26 23:16] LABS: BASO % 0.5 %; BASO ABS # 0.03 K/uL (0-0.2); EOS % 2.5 %; EOS ABS # 0.14 K/uL (0-0.5); IG# 0.02 K/uL (0.00-0.02); LYMPH % 53.1 %; LYMPH ABS # 3.03 K/uL (1.2-3.4); MONO % 6.7 %; MONO ABS # 0.38 K/uL (0.11-0.59); NEUT % 36.8 %; NEUT ABS # 2.11 K/uL (1.4-6.5)
--- NOTE | 2017-07-26 23:21 | DIAGNOSTIC IMAGING REPORT ---
CHEST ONE VIEW PORTABLE HISTORY: 52 years-old Female cp atypical chest pain COMPARISON: Chest radiograph 05/17/2017. TECHNIQUE: Portable AP view of the chest FINDINGS: Cardiomediastinal and hilar silhouettes are within normal limits. No pneumothorax, pleural effusion, focal airspace consolidation or overt pulmonary edema. Multiple remote right-sided rib fractures. Bones of the chest appear grossly intact. IMPRESSION: No acute process. The above report was generated using voice recognition software. It may contain grammatical, syntax or spelling errors. Electronically signed by: Pj Santiago M.D. 07/26/2017 11:20 PM Dictated Date/Time: 07/26/2017 11:19 PM
[2017-07-26] MEDS ORDERED: NSS + 20MEQ KCL 1000ML 1,000 ML IV SCH (23:41)
[2017-07-26] MEDS ORDERED: ALBUMIN HUMAN 25% 12.5 GM/50 ML VIAL IV ONE (23:45)
[2017-07-26] MEDS ORDERED: SODIUM CHLORIDE 0.9% 500ML 500 ML IV SCH (23:45)
[2017-07-27] VITALS (23 sets, daily range): BP systolic 75–127; BP diastolic 44–88; PULSE 73–140; TEMP 36.5–36.7; O2SAT 2–100; Ht 172.7 cm; Wt 69.7 kg
[2017-07-27] MEDS ORDERED: OPTIRAY 320 IV PRN
[2017-07-27] MEDS ORDERED: NRN/600 PO (00:12)
[2017-07-27] MEDS ORDERED: NADO20TA PO (00:13)
[2017-07-27] MEDS ORDERED: VNTHFA/IN INH (00:14)
[2017-07-27] MEDS ORDERED: PANT40TA PO (00:16)
[2017-07-27] MEDS ORDERED: THIA1TAB11 PO (00:17)
[2017-07-27] MEDS ORDERED: ASCO500T16 PO (00:18)
[2017-07-27] MEDS ORDERED: CHOL1000 PO (00:20)
[2017-07-27] MEDS ORDERED: VITA400C3 PO (00:21)
[2017-07-27] MEDS ORDERED: FOLI1TAB8 PO (00:22)
--- NOTE | 2017-07-27 00:43 | History and Physical ---
History & Physical Date & Time of Service: Jul 27, 2017 at 00:39 Chief Complaint: Throwing Up Blood Primary Care Physician: Linn Khanna M.D. History of Present Illness Source: patient, hospital records Patient is a 52 year old female with a past medical history of alcohol abuse, esophageal varices s/p banding in Apr 2017, Thrombocytopenia, and Tobacco use that presents with hematemesis and multiple syncopal episodes. The patient reports an episode of bleeding this evening at 7pm at home in the bathroom, and after her episode she experienced a fall. The patient denies any head trama and hit her back on the wall during the fall. The patient states that she had another fall 2 days ago where she also hit her back on the wall. It is unclear how much the patient vomited this evening and she appears to provide a very poor history in the setting of intoxication. The patient states that she normally has 5 alcoholic drinks per day and had 4 today thus far. The patient denies any acute complaints at this time and had not vomited in the ED prior to admission. She denies any fever, chills, sweats, chest pain, shortness of breath, abdominal pain, nausea, dysuria, or any other acute complaints. Past Medical/Surgical History Acute blood loss anemia from esophageal bleeding Coagulopathy--due to liver failure from alcoholic cirrhosis Alcohol abuse Gamma strep uti Thrombocytopenia Dehydration Hypokalemia Tobacco use disorder counselled for cessation Hyperglycemia- resolved Family History Cancer Hypertension Social History Smoking Status: Current Every Day Smoker Smokeless Tobacco Use: No Alcohol Use: heavy Drug Use: none Marital Status: Housing status: lives with family Occupational Status: employed Immunizations History of Influenza Vaccine: Unknown History of Tetanus Vaccine?: Unknown History of Pneumococcal: Unknown History of Hepatitis B Vaccine: Unknown Allergies Coded Allergies: Ciprofloxacin (Unverified Allergy, Unknown, RASH, 10/04/15) Home Medications Scheduled Ascorbic Acid (Ascorbic Acid), Unknown Dose PO DAILY Cholecalciferol (Vitamin D3), Unknown Dose PO DAILY Folic Acid (Folvite), Unknown Dose PO DAILY Gabapentin (Neurontin), 600 MG PO TID Nadolol (Corgard), 20 MG PO DAILY Pantoprazole (Protonix), 40 MG PO BID Thiamine Mononitrate (Vitamin B1), 100 MG PO DAILY Vitamin E (Vitamin E 400 Iu), Unknown Dose PO DAILY Scheduled PRN Albuterol Hfa (Ventolin Hfa), 2 PUFFS INH Q6H PRN for SOB/Wheezing Review of Systems See HPI for pertinent positives and negatives. A total of ten systems were reviewed and were otherwise negative. Physical Exam Vital Signs Date Time Temp Pulse Resp B/P (MAP) Pulse Ox O2 Delivery O2 Flow Rate FiO2 07/27/17 00:25 85 18 86/44 98 Room Air 07/27/17 00:24 36.5 79 18 86/44 95 07/27/17 00:12 36.6 84 18 83/52 97 07/27/17 00:05 36.5 81 18 87/52 97 07/26/17 23:52 101 18 93/60 95 Room Air 07/26/17 23:24 91 20 83/54 98 Room Air 07/26/17 22:56 90 18 82/63 100 Room Air 07/26/17 22:50 84 18 95/61 98 Room Air 07/26/17 22:25 98 Room Air 07/26/17 22:20 90 07/26/17 22:10 36.4 84 18 63/43 98 Room Air General Appearance: no apparent distress, + pertinent finding (disheveled appearance) Head: normocephalic, atraumatic Eyes: normal inspection, PERRL, EOMI, sclerae normal ENT: normal ENT inspection Neck: supple, no carotid bruits Respiratory/Chest: chest non-tender, lungs clear, normal breath sounds Cardiovascular: regular rate, rhythm, no edema, no gallop Abdomen/GI: normal bowel sounds, non tender, soft Extremities/Musculoskelatal: no calf tenderness, no pedal edema Neurologic/Psych: alert, normal reflexes, oriented x 3 Diagnostics Laboratory Results Results Past 24 Hours Test 07/26/17 22:20 07/26/17 22:25 07/26/17 22:32 07/26/17 22:41 Range/Units White Blood Count 5.71 4.8-10.8 K/uL Red Blood Count 2.97 4.2-5.4 M/uL Hemoglobin 8.9 12.0-16.0 g/dL Hematocrit 28.4 37-47 % Mean Corpuscular Volume 95.6 80-100 fL Mean Corpuscular Hemoglobin 30.0 25-34 pg Mean Corpuscular Hemoglobin Concent 31.3 32-36 g/dl Platelet Count 35 130-400 K/uL Mean Platelet Volume 10.7 7.4-10.4 fL Neutrophils (%) (Auto) 36.8 % Lymphocytes (%) (Auto) 53.1 % Monocytes (%) (Auto) 6.7 % Eosinophils (%) (Auto) 2.5 % Basophils (%) (Auto) 0.5 % Neutrophils # (Auto) 2.11 1.4-6.5 K/uL Lymphocytes # (Auto) 3.03 1.2-3.4 K/uL Monocytes # (Auto) 0.38 0.11-0.59 K/uL Eosinophils # (Auto) 0.14 0-0.5 K/uL Basophils # (Auto) 0.03 0-0.2 K/uL RDW Standard Deviation 65.9 36.4-46.3 fL RDW Coefficient of Variation 18.7 11.5-14.5 % Immature Granulocyte % (Auto) 0.4 % Immature Granulocyte # (Auto) 0.02 0.00-0.02 K/uL Anisocytosis PRESENT Prothrombin Time 15.5 9.0-12.0 SECONDS Prothromb Time International Ratio 1.5 0.9-1.1 Activated Partial Thromboplast Time 27.9 21.0-31.0 SECONDS Partial Thromboplastin Ratio 1.1 Sodium Level 142 136-145 mmol/L Potassium Level 3.7 3.5-5.1 mmol/L Chloride Level 107 98-107 mmol/L Carbon Dioxide Level 24 21-32 mmol/L Anion Gap 11.0 23.0 16-25 mmol/L Blood Urea Nitrogen 8 7-18 mg/dl Creatinine 0.91 0.60-1.20 mg/dl Est Creatinine Clear Calc Drug Dose 73.8 ml/min Estimated GFR () 84.7 Estimated GFR (Non- 73.1 BUN/Creatinine Ratio 9.1 10-20 Random Glucose 144 70-99 mg/dl Calcium Level 7.4 8.5-10.1 mg/dl Magnesium Level 2.0 1.8-2.4 mg/dl Total Bilirubin 1.5 0.2-1 mg/dl Direct Bilirubin 0.8 0-0.2 mg/dl Aspartate Amino Transf (AST/SGOT) 186 15-37 U/L Alanine Aminotransferase (ALT/SGPT) 40 12-78 U/L Alkaline Phosphatase 187 45-117 U/L Total Creatine Kinase 101 26-192 U/L Creatine Kinase MB < 0.5 0.5-3.6 ng/ml Creatine Kinase MB Ratio 0-3.0 Troponin I < 0.015 0-0.045 ng/ml Total Protein 6.3 6.4-8.2 gm/dl Albumin 2.7 3.4-5.0 gm/dl Lipase 231 73-393 U/L Human Chorionic Gonadotropin, Qual NEG NEG Salicylates Level < 1.7 2.8-20 mg/dl Acetaminophen Level < 2 10-30 ug/ml Bedside Hemoglobin 9.2 12.0-16.0 g/dl Bedside Hematocrit 27 37-47 % Bedside Sodium 144 135-144 mEq/L Bedside Potassium 3.8 3.3-5.0 mEq/L Bedside Chloride 103 101-112 mEq/L Bedside Total CO2 24 24-31 mEq/l Bedside Blood Urea Nitrogen 6 7-18 mg/dl Bedside Creatinine 1.5 0.6-1.3 mg/dl Bedside Glucose (other) 148 70-99 mg/dl Bedside Ionized Calcium (Donnell) 0.90 1.12-1.32 mmol/l Ethyl Alcohol mg/dL 407.4 0-3 mg/dl Bedside Lactic Acid Venous 6.49 0.90-1.70 mmol/L Test 07/26/17 22:55 Range/Units Bedside Troponin I < 0.030 0-0.045 ng/ml Impression Assessment and Plan Patient is a 52 year old female with a past medical history of alcohol abuse, esophageal varices s/p banding in Apr 2017, Thrombocytopenia, and Tobacco use that presents with hematemesis and multiple syncopal episodes Hematemesis 2/2 Esophageal Varices - Octreotide - Protonix - Hgb on admission --> Continue to monitor H/H q4h - 2 units PRBC - 1L NS Bolus in ED - NS @ 200 cc/hr - Albumin 25mg - Fresh Frozen Plasma - Zosyn - GI Consult --> Discussed case with Dr. Jensen --> Manage in ICU at this time, reevaluate for Endoscopy in AM - Admit to ICU Syncope --> Most likely vasovagal/ hypotensive event 2/2 bleeding - CT Head, C-Spine, Chest, Pelvis --> No acute fractures - CXR: No acute cardiopulmonary disease - Fluids and Blood as above Thrombocytopenia - Platelet count 35 --> Approximate baseline - Continue to monitor with daily CBC Liver Cirrhosis - INR 1.5 - FFP - Vitamin K in ED + 10 mg IV Vit K daily Alcoholism - CIWA Protocol - Gabapentin to prevent withdrawal DVT - SCDs Code Status - Full Resuscitation Attending addendum: I have physically seen this patient, have supervised the medical residents activities, and agree with the H&P unless as otherwise noted. Assessment and Plan: Hematochezia/history of esophageal varices with banding/alcoholism/coagulopathy/ anemia/ thrombocytopenia-- Admit to the ICU. Aggressive IV fluid rehydration. N.p.o. status Protonix bolus/drip Octreotide Drip Transfuse 2 units packed RBCs now. Albumin 25 g IV now. Vitamin K 10mg IV now and Qam Transfuse 1 unit of platelets now. Transfuse 2 units FFP now. H/H every 4 hours. Serial CBCD, CMP Mag, and PT/INR/PTT. Zosyn 3.375 mg IV q 8hours. Consult GI Alcoholism-- CIWA protocol with gabapentin Advanced Directives Existing Advance Directive: No Existing Living Will: No Existing Power of Lead Tank Mechanic: No Resuscitation Status Full Resuscitation VTE Prophylaxis Will order VTE Prophylaxis: Yes Note Total Time: Critical Care 30 - 74 minutes Resident Tracking Resident Involvement: Resident Care Provided Care Provided: Adult Hospital Medicine
[2017-07-27] MEDS: ALBUMIN HUMAN 25% 12.5 GM/50 ML VIAL IV SCH ×2 (01:00)
--- NOTE | 2017-07-27 01:03 | EMERGENCY ROOM VISIT NOTE ---
ED Visit Note First contact with patient: 00:00 Procedure Note: Central Line Placement History: Patient brought to my attention by Dr Licona and Tra Glover PA-C noting worsening hypotension in setting of upper GI bleed requiring multiple medications, blood products and draws that currently has peripheral access only. They request I place central line. I evaluated patient and agree with this plan. Indication: Persistent hypotension, multiple blood products, multiple medications, recurrent blood draws, difficulty obtaining peripheral access Catheter Type: Triple Lumen Central Catheter Location: Right IJ Time out: 00:27 on 07/27/17 Verbal and written consent was obtained after the risks and benefits were explained, including but not limited to nerve injury, vessel injury, bleeding, pain, stroke, lung injury, collapsed lung, , scarring, infection, cardiac arrhythmia, amongst others. At this time, the risks of the procedure are less than the risks of NOT performing the procedure. A time out was taken and the correct patient and site identified. The patient was placed in the supine position and the skin was prepped in the standard fashion with chlorhexidine and full sterile drapes applied. The proper landmarks were identified with ultrasound, anesthetized with 1% lidocaine without epinephrine, and the needle was inserted through the skin in the standard fashion. The needle was carefully advanced into blood vessel lumen with ultrasound guidance. IJ accessed on first stick without difficulty. Venous return noted. The guidewire was placed uneventfully and placement confirmed again with ultrasound. No ectopy noted on monitor. The vessel is dilated and the catheter was placed to 17cm. It was sutured into position. There was good blood return from all ports. The patient tolerated the procedure well and there were no complications. Chest Xray: My interpretation: 1 View Portable: Indication: Post line placement. No pneumothorax. Central line tip at top of right atrium. No infiltrates appreciated. Normal cardiac boarder. Jason Cash MD
[2017-07-27] MEDS ORDERED: ONDANSETRON INJ 2 MG/ML 2 ML VIAL IV PRN ×2 (01:15→07:15)
[2017-07-27] MEDS ORDERED: LORAZEPAM 2 MG/ML 1 ML VIAL IV PRN (01:15)
[2017-07-27] MEDS ORDERED: LORAZEPAM 1 MG TAB PO PRN (01:15)
[2017-07-27] MEDS ORDERED: ICU PROTOCOL FOR HYPERGLYCEMIA PRN (01:15)
[2017-07-27] MEDS ORDERED: MULTI-VITAMIN INFUSION INJ 10 ML, THIAMINE HCL INJ 100 MG, FoLIC ACID INJ 1 MG in SODIU... IV ONE (01:30)
[2017-07-27] MEDS: NORMOSOL R 1,000 ML IV SCH ×2 (01:40→08:05)
[2017-07-27] MEDS ORDERED: GABAPENTIN 600 MG TAB PO SCH (02:00)
[2017-07-27] MEDS ORDERED: THIAMINE HCL INJ 100 MG in SYRINGE 9 ML IV SCH (02:00)
--- NOTE | 2017-07-27 02:40 | EMERGENCY ROOM VISIT NOTE ---
History First contact with patient: 22:12 Chief Complaint: VOMITING Stated Complaint: THROWING UP BLOOD Nursing Triage Summary: Patient brought in by neighbor after patient passed out and fell. hit cabinet and toilet. bruising on back. open area on back. vomited dark red clots of blood at home. witnessed by neighbor History of Present Illness The patient is a 52 year old female who presents to the Emergency Room with complaints of hematemesis tonight who is a known alcoholic with cirrhosis with variceal banding in the past with most recent April 2017. Patient went to rehab and was discharged in May and has been drinking daily since. Patient states she had 4 alcoholic beverages today. Patient states she passed out in the bathroom after vomiting blood and syncopized and hit her back today and 2 days ago. Patient states she gets the shakes from alcohol withdrawal but no history of seizures. She follows with Dr. Jensen from GI. She has not followed up for her endoscopy since her last banding in April. Patient complains of back pain. Patient denies headache, neck pain, abdominal pain, chest pain, dyspnea, diarrhea, black or blood in her stool. Patient states she does not think she lost consciousness. Patient is highly intoxicated. History is also obtained from the friend who witnessed the event. Patient denies any drug use but does smoke. The friend, Erasmo, who is the neighbor states that she has been drinking daily since being discharged from rehab. He states a few days ago she fell and has been taking Motrin for the discomfort. He states today she fell in front of him and hit her back pretty hard in the bathroom. He then witnessed her vomiting blood and took pictures of it and showed me this. He then brought her here. He states she did not pass out but did appear highly intoxicated. Review of Systems An 10 system review of systems was completed with positives and pertinent negatives listed in the HPI. Past Medical/Surgical History Medical Problems: (1) Cirrhosis of liver with ascites (2) Thrombocytopenia (3) Tumor of uterus (4) Upper GI bleed Surgical Problems: (1) H/O: hysterectomy Family History Cancer Hypertension Social History Smoking Status: Current Every Day Smoker Alcohol Use: other Drug Use: none Marital Status: Housing Status: lives with significant other Occupation Status: employed Current/Historical Medications Scheduled Ascorbic Acid (Ascorbic Acid), Unknown Dose PO DAILY Cholecalciferol (Vitamin D3), Unknown Dose PO DAILY Folic Acid (Folvite), Unknown Dose PO DAILY Gabapentin (Neurontin), 600 MG PO TID Nadolol (Corgard), 20 MG PO DAILY Pantoprazole (Protonix), 40 MG PO BID Thiamine Mononitrate (Vitamin B1), 100 MG PO DAILY Vitamin E (Vitamin E 400 Iu), Unknown Dose PO DAILY Scheduled PRN Albuterol Hfa (Ventolin Hfa), 2 PUFFS INH Q6H PRN for SOB/Wheezing Physical Exam Vital Signs Date Time Temp Pulse Resp B/P (MAP) Pulse Ox O2 Delivery O2 Flow Rate FiO2 07/27/17 00:05 36.5 81 18 87/52 97 07/26/17 23:52 101 18 93/60 95 Room Air 07/26/17 23:24 91 20 83/54 98 Room Air 07/26/17 22:56 90 18 82/63 100 Room Air 07/26/17 22:50 84 18 95/61 98 Room Air 07/26/17 22:25 98 Room Air 07/26/17 22:20 90 07/26/17 22:10 36.4 84 18 63/43 98 Room Air Physical Exam VITALS: Vitals are noted on the nurse's note and reviewed by myself. Vital signs hypotensive. GENERAL: White female pale hypotensive with EtOH odor, in acute distress SKIN: Bruising to the upper and lower back with abrasion without signs of infection; the rest of skin was without rashes, erythema, edema, or bruising. There is no tenting of the skin. Capillary reflex less than 2 seconds. HEAD: Normocephalic atraumatic. EARS: External auditory canals clear, tympanic membranes pearly casillas without erythema or effusion bilaterally. EYES: Pupils equal round and reactive to light and accommodation. Conjunctivae without injection, sclerae without icterus. Extraocular movements intact. NOSE: Patent, turbinates without inflammation or discharge. MOUTH: Mucous membranes moist. Pharynx without erythema or exudate. Uvula midline. Airway patent. Tongue does not deviate. NECK: Supple without nuchal rigidity. No lymphadenopathy. No thyromegaly. Cervical spine is nontender. No JVD. HEART: Regular rate and rhythm LUNGS: Clear to auscultation bilaterally without wheezes, rales or rhonchi. No retractions or accessory muscle use. ABDOMEN: Positive bowel sounds x 4. Normal tympanic percussion. Soft, diffusely tender to palpation without localized pain, without masses or organomegaly. Short sign negative. No guarding or rebound tenderness. No CVA tenderness MUSCULOSKELETAL: No muscle atrophy, erythema, or edema noted. Mild mid thoracic discomfort without step-offs. no real lumbar pain the patient is highly intoxicated. 5 out of 5 strength throughout all extremities. NEURO: Patient was alert and oriented to person place and time. Normal sensation to light and sharp touch. No focal neurological deficits. Medical Decision & Procedures Laboratory Results 07/26/17 22:20 Red Blood Count 2.97, Mean Corpuscular Volume 95.6, Mean Corpuscular Hemoglobin 30.0, Mean Corpuscular Hemoglobin Concent 31.3, Mean Platelet Volume 10.7, Neutrophils (%) (Auto) 36.8, Lymphocytes (%) (Auto) 53.1, Monocytes (%) (Auto) 6.7, Eosinophils (%) (Auto) 2.5, Basophils (%) (Auto) 0.5, Neutrophils # (Auto) 2.11, Lymphocytes # (Auto) 3.03, Monocytes # (Auto) 0.38, Eosinophils # (Auto) 0.14, Basophils # (Auto) 0.03 07/26/17 22:20 Test 07/26/17 22:20 07/26/17 22:25 07/26/17 22:32 07/26/17 22:41 White Blood Count 5.71 K/uL (4.8-10.8) Red Blood Count 2.97 M/uL (4.2-5.4) Hemoglobin 8.9 g/dL (12.0-16.0) Hematocrit 28.4 % (37-47) Mean Corpuscular Volume 95.6 fL (80-100) Mean Corpuscular Hemoglobin 30.0 pg (25-34) Mean Corpuscular Hemoglobin Concent 31.3 g/dl (32-36) Platelet Count 35 K/uL (130-400) Mean Platelet Volume 10.7 fL (7.4-10.4) Neutrophils (%) (Auto) 36.8 % Lymphocytes (%) (Auto) 53.1 % Monocytes (%) (Auto) 6.7 % Eosinophils (%) (Auto) 2.5 % Basophils (%) (Auto) 0.5 % Neutrophils # (Auto) 2.11 K/uL (1.4-6.5) Lymphocytes # (Auto) 3.03 K/uL (1.2-3.4) Monocytes # (Auto) 0.38 K/uL (0.11-0.59) Eosinophils # (Auto) 0.14 K/uL (0-0.5) Basophils # (Auto) 0.03 K/uL (0-0.2) RDW Standard Deviation 65.9 fL (36.4-46.3) RDW Coefficient of Variation 18.7 % (11.5-14.5) Immature Granulocyte % (Auto) 0.4 % Immature Granulocyte # (Auto) 0.02 K/uL (0.00-0.02) Anisocytosis PRESENT Prothrombin Time 15.5 SECONDS (9.0-12.0) Prothromb Time International Ratio 1.5 (0.9-1.1) Activated Partial Thromboplast Time 27.9 SECONDS (21.0-31.0) Partial Thromboplastin Ratio 1.1 Est Creatinine Clear Calc Drug Dose 73.8 ml/min Estimated GFR () 84.7 Estimated GFR (Non- 73.1 BUN/Creatinine Ratio 9.1 (10-20) Calcium Level 7.4 mg/dl (8.5-10.1) Magnesium Level 2.0 mg/dl (1.8-2.4) Total Bilirubin 1.5 mg/dl (0.2-1) Direct Bilirubin 0.8 mg/dl (0-0.2) Aspartate Amino Transf (AST/SGOT) 186 U/L (15-37) Alanine Aminotransferase (ALT/SGPT) 40 U/L (12-78) Alkaline Phosphatase 187 U/L (45-117) Total Creatine Kinase 101 U/L (26-192) Creatine Kinase MB < 0.5 ng/ml (0.5-3.6) Creatine Kinase MB Ratio (0-3.0) Troponin I < 0.015 ng/ml (0-0.045) Total Protein 6.3 gm/dl (6.4-8.2) Albumin 2.7 gm/dl (3.4-5.0) Lipase 231 U/L (73-393) Human Chorionic Gonadotropin, Qual NEG (NEG) Salicylates Level < 1.7 mg/dl (2.8-20) Acetaminophen Level < 2 ug/ml (10-30) Bedside Hemoglobin 9.2 g/dl (12.0-16.0) Bedside Hematocrit 27 % (37-47) Bedside Sodium 144 mEq/L (135-144) Bedside Potassium 3.8 mEq/L (3.3-5.0) Bedside Chloride 103 mEq/L (101-112) Bedside Total CO2 24 mEq/l (24-31) Anion Gap 23.0 mmol/L (16-25) Bedside Blood Urea Nitrogen 6 mg/dl (7-18) Bedside Creatinine 1.5 mg/dl (0.6-1.3) Bedside Glucose (other) 148 mg/dl (70-99) Bedside Ionized Calcium (Donnell) 0.90 mmol/l (1.12-1.32) Ethyl Alcohol mg/dL 407.4 mg/dl (0-3) Bedside Lactic Acid Venous 6.49 mmol/L (0.90-1.70) Test 07/26/17 22:55 Bedside Troponin I < 0.030 ng/ml (0-0.045) Medications Administered Medications (Trade) Dose Ordered Sig/Shama Route Start Time Stop Time Status Last Admin Dose Admin Sodium Chloride 2,000 ml @ 999 mls/hr Q2H1M STAT IV 07/26/17 22:17 07/27/17 00:17 DC 07/26/17 22:29 999 MLS/HR Ondansetron HCl (Zofran Inj) 4 mg NOW STAT IV 07/26/17 22:20 07/26/17 22:21 DC 07/26/17 22:28 4 MG Octreotide Acetate (Sandostatin Bolus From Bag) 100 mcg ONE ONCE IV 07/26/17 22:30 07/26/17 22:31 DC 07/26/17 22:37 100 MCG Octreotide Acetate 500 mcg/ Sodium Chloride 105 ml @ 10 mls/hr [id number] IV 07/26/17 22:30 07/27/17 08:59 07/26/17 22:35 10 MLS/HR Pantoprazole Sodium 80 mg/ Dextrose 120 ml @ 480 mls/hr NOW STAT IV 07/26/17 22:23 07/26/17 22:37 DC 07/26/17 22:44 480 MLS/HR Pantoprazole Sodium 40 mg/ Dextrose 100 ml @ 20 mls/hr Q5H IV 07/26/17 22:30 07/27/17 03:29 07/26/17 22:45 20 MLS/HR Piperacillin Sod/ Tazobactam Sod (Zosyn Iv) 4.5 gm NOW STAT IV 07/26/17 22:55 07/26/17 22:56 DC 07/27/17 00:54 4.5 GM Phytonadione 10 mg/Sodium Chloride 51 ml @ 102 mls/hr ONE ONCE IV 07/26/17 23:15 07/26/17 23:44 DC 07/26/17 23:49 102 MLS/HR Sodium Chloride 500 ml @ 999 mls/hr Q31M IV 07/26/17 23:45 07/27/17 00:15 DC 07/26/17 23:45 999 MLS/HR Potassium Chloride/Sodium Chloride 1,000 ml @ 200 mls/hr Q5H IV 07/26/17 23:41 07/27/17 01:33 DC 07/27/17 01:22 200 MLS/HR ED Course Prior records/ancillary studies reviewed. Triage Nursing notes reviewed. Additional history obtained from the friend. The patient's history was concerning for possible gastrointestinal bleeding with multiple falls and alcoholism. Differential diagnosis: Etiologies such as trauma, diverticulosis, AVM, coagulopathy, colitis, inflammatory bowel disease, malignancy, Delmy-Adams tear, esophagitis, peptic ulcer disease, variceal bleed, gastritis, epistaxis, fissure, hemorrhoids, as well as others were entertained. Physical exam: As above. The patients vital signs were hypotensive. ER treatment provided: 2 IVs with 2 L bolus, octreotide, Protonix, vitamin K, Zosyn Central line placed by my attending Type and crossmatch for 2 units of blood and patient was consented to this and patient was transfused 2 units of blood On reassessment the patient felt better. Diagnostics interpreted by me: FAST exam showed no free fluid per my interpretation. ECG: Poor baseline, normal sinus, normal intervals, no acute ST-T wave changes, rate of 82. Impression normal sinus rhythm interpreted by myself The labs revealed i-STAT with H&H of 9 and 27. Type and cross match was ordered. Lactic acid 6.49 Thrombocytopenia about baseline per chart review Alcohol 407 Imaging studies: No fractures of the T or L-spine per radiology CT HEAD: No evidence of acute intracranial abnormality. No skull fracture. Mild volume loss and small vessel disease. Left maxillary sinus mucous retention cyst or polyp. Radiologist: Kristine Villaseñor M.D. CT C SPINE: No evidence of acute fracture or malalignment. Mild degenerative changes. Mild anterolisthesis of C4-5. No prevertebral soft tissue swelling Radiologist: Kristine Villaseñor M.D. CT CHEST With Contrast: No evidence of acute internal traumatic injury or acute fracture. Nonacute bilateral rib fractures, with callus. Left first rib and right fourth- sixth lateral rib fractures appear subacute. Small hiatal hernia, paraesophageal varices, cirrhotic liver, pancreatic atrophy and pancreatic head calcifications, gallstone. Radiologist: Kristine Villaseñor M.D. CT ABDOMEN & PELVIS With Contrast: No evidence of acute intracranial traumatic injury or acute fracture. Cirrhotic, enlarged liver. Portal hypertension. Varices including multiple paraesophageal varices. Mild splenomegaly. Large amount of fecal material within the rectum. Colonic diverticulosis. Grade 1 L5-S1 spondylolisthesis, bilateral L5 pars defects. Chronic. Radiologist: Kristine Villaseñor M.D. Study ready at 23:47 and initial results transmitted Consultation: A consultation was placed with GI, Dr. Jensen who recommends admission to the unit with octreotide, Protonix, blood, antibiotics fluids and platelets as needed. He states that the bleeding recurs to contact him and he will come in immediately. I spoke to Dr. Ji, hospitalist. The case was discussed and diagnostics were reviewed. The patient was evaluated in the ER for further treatment. This appears to be consistent with acute upper GI bleeding from esophageal varices with known alcoholism and cirrhosis of the liver who has had banding in the past. Patient was highly intoxicated. She has had multiple falls this week. She had bruising throughout her back. She had an abdominal tenderness on clinical exam. She was sent for CT imaging with no acute findings noted. She was immediately started on IV Protonix, octreotide and IV fluids upon initial evaluation and my attending was notified. She was typed and crossmatched for 2 units of blood. Patient was consented to this. She was reassessed multiple times. Her blood pressure did slightly improve. She came into the ER at 60/40 and with fluids she did improve up to the high 80s. Central line was placed by my attending. Please see his note for further information regarding this procedure. I immediately contacted GI who recommends admission to the unit. Medicine was consulted and evaluated the patient for admission. The patient was admitted to the unit. The journalism internship was notified. Patient states she would like everything done for her today. Patient states she has no history of seizures from alcohol withdrawal. Patient states she has been drinking vodka today. No drug use. She does smoke. By the evaluation outlined above emergent etiologies such as esophageal perforation , epistaxis, malignancy, inflammatory bowel disease, as well as others were deemed relatively unlikely. The pt informed about the findings as listed above. All questions were answered and pleased with the treatment. Case reviewed with my attending The chart was completed utilizing [employer] Speech voice recognition software. Grammatical errors, random word insertions, pronoun errors, and incomplete sentences are an occassional consequence of this system due to software limitations, ambient noise, and hardware issues. Any formal questions or concerns about the content, text, or information contained within the body of this dictation should be directly addressed to the physician hair assistant for clarification. Medical Decision as above Medication Reconcilliation Current Medication List: was personally reviewed by me Blood Pressure Screening Patient's blood pressure: Low blood pressure Impression Primary Impression: Esophageal varices with bleeding Additional Impressions: Thrombocytopenia Anemia Alcohol abuse Back injury Syncope Hypotension Critical Care I have personally spent greater than 60 minutes of critical care time in the direct management of this patient. This includes bedside care, interpretation of diagnostic studies, and testing, discussion with consultants, patient, and family members, and other required patient management activities. This 60 minutes is in excess of all separately billable procedures. Departure Information Dispostion Being Evaluated By Hospitalist Condition POOR Referrals Linn Khanna M.D. (PCP) Patient Instructions My [facility] Problem Qualifiers Primary Impression: Esophageal varices with bleeding Esophageal varices type: unspecified type Qualified Codes: I85.01 - Esophageal varices with bleeding
[2017-07-27] MEDS ORDERED: CEFTRIAXONE SOD INJ 1 GM in DEXTROSE 5% ADD-VANTAGE 50ML 50 ML IV SCH (04:00)
[2017-07-27] MEDS ORDERED: OCTREOTIDE ACETATE IV SCH (04:00)
--- NOTE | 2017-07-27 04:10 | Critical Care Consultation ---
Critical Care Consultation Date of Consultation: Jul 27, 2017. Attending Physician: Ernie Licona M.D. Reason for Consultation: 52-year-old female with jimmy hematemesis and presumed bleeding esophageal varices requiring aggressive blood product management and close hemodynamic monitoring. History of Present Illness Patient is a 52-year-old female with a significant past medical history for alcohol abuse, cirrhosis with portal hypertension, esophageal varices with prior banding, and thrombocytopenia. She presents to the emergency department after multiple episodes of jimmy hematemesis starting at 730 this evening. Her significant other is present and reports that she initially vomited bright red blood, and then began to vomit clots. She had reportedly syncopized on 2 separate occasions during these episodes of vomiting. She was subsequently brought to the emergency department for further evaluation. The patient had undergone esophageal banding in April of this past year. While in the emergency setting, she received 2.5 L of normal saline and recessed 3 efforts as well as 1 unit of blood, Protonix drip, and octreotide drips. She was found to be anemic with an H&H of 8.9 and 28.4, or sexually. She was thrombocytopenic with a platelet count of 35. Her liver enzymes were elevated in the typical chronic alcoholic pattern. She has no significant electrolyte abnormalities. Her INR was elevated at 1.5. Salicylates and acetaminophen levels were low. She denies any Tylenol use. She does admit to continued Advil use. Her alcohol level was moderately elevated at 407.4 mg/dL. The patient had reportedly undergone falls over the past 2 weeks with bruising noted. She underwent salgado-scanning of her body. In conversation with GI, the suggest medical management at this point unless the patient were to have worsening or return of bleeding. At this point, they would suggest Harrison tube placement with emergent surgical intervention. At this point, it is not felt to be necessary. On evaluation of the patient, she is awake, alert, and oriented. She is intoxicated and smells of alcohol. She denies any pain, but does feel somewhat nauseous. She denies any headaches, dizziness, lightheadedness, chest pain, palpitations, shortness of breath, abdominal pain, or melanotic stools. She reports that she did initially enter a rehabilitation facility at [facility] after her prior discharge in April. She admits to returning to drinking "2-3" drinks per day. She denies any other illicit substance use. Past Medical/Surgical History Medical Problems: (1) Cirrhosis of liver with ascites (2) Thrombocytopenia (3) Tumor of uterus (4) Upper GI bleed Surgical Problems: (1) H/O: hysterectomy Family History Cancer Hypertension Noncontributory Social History Smoking Status: Current Every Day Smoker Smokeless Tobacco Use: No Alcohol Use: heavy Drug Use: none Marital Status: Housing Status: lives with significant other Occupation Status: employed Allergies Coded Allergies: Ciprofloxacin (Unverified Allergy, Unknown, RASH, 10/04/15) Home Medications Scheduled Ascorbic Acid (Ascorbic Acid), Unknown Dose PO DAILY Cholecalciferol (Vitamin D3), Unknown Dose PO DAILY Folic Acid (Folvite), Unknown Dose PO DAILY Gabapentin (Neurontin), 600 MG PO TID Nadolol (Corgard), 20 MG PO DAILY Pantoprazole (Protonix), 40 MG PO BID Thiamine Mononitrate (Vitamin B1), 100 MG PO DAILY Vitamin E (Vitamin E 400 Iu), Unknown Dose PO DAILY Scheduled PRN Albuterol Hfa (Ventolin Hfa), 2 PUFFS INH Q6H PRN for SOB/Wheezing Current Inpatient Medications Current Inpatient Medications Medications (Trade) Dose Ordered Sig/Shama Route Start Time Stop Time Status Last Admin Dose Admin Octreotide Acetate 500 mcg/ Sodium Chloride 105 ml @ 10 mls/hr [id number] IV 07/26/17 22:30 07/27/17 08:59 07/26/17 22:35 10 MLS/HR Ioversol (Optiray 320) 100 ml UD PRN IV 07/27/17 00:00 07/31/17 00:00 Ondansetron HCl (Zofran Inj) 4 mg Q6H PRN IV 07/27/17 01:15 08/26/17 01:14 07/27/17 01:38 4 MG Miscellaneous Information (Icu Protocol For Hyperglycemia) 1 ea PRN PRN N/A 07/27/17 01:15 07/29/17 01:14 Thiamine HCl 100 mg/Syringe 10 ml @ 2 mls/min Q24H IV 07/27/17 02:00 08/26/17 01:59 07/27/17 01:55 2 MLS/MIN Lorazepam (Ativan Inj) 1 mg ONE PRN IV 07/27/17 01:15 Ceftriaxone Sodium 1 gm/ Dextrose 50 ml @ 100 mls/hr Q24H IV 07/27/17 04:00 08/06/17 03:59 07/27/17 03:49 100 MLS/HR Lorazepam (Ativan Tab) 1 mg ONE PRN PO 07/27/17 01:15 Gabapentin (Neurontin Tab) 600 mg Q6H PO 07/27/17 08:00 07/27/17 14:01 Gabapentin (Neurontin Tab) 600 mg Q8H PO 07/28/17 06:00 07/28/17 22:01 Gabapentin (Neurontin Tab) 600 mg Q12H PO 07/29/17 10:00 07/29/17 22:01 Gabapentin (Neurontin Tab) 600 mg Q24H PO 07/30/17 22:00 07/30/17 22:01 Parenteral Electrolyte Solution 1,000 ml @ 100 mls/hr Q10H IV 07/27/17 01:30 08/26/17 01:29 07/27/17 01:40 100 MLS/HR Phytonadione 10 mg/Sodium Chloride 51 ml @ 102 mls/hr DAILY IV 07/27/17 20:00 08/26/17 19:59 UNV Review of Systems A complete 10-point Review of Systems was discussed with the patient, with pertinent positives and negatives listed in the History of Present Illness. All remaining Review of Systems questions can be considered negative unless otherwise specified. Physical Exam Date Time Temp Pulse Resp B/P (MAP) Pulse Ox O2 Delivery O2 Flow Rate FiO2 07/27/17 03:00 78 18 77/51 95 07/27/17 02:45 80 18 79/53 92 07/27/17 02:30 82 20 79/50 91 07/27/17 02:15 36.7 85 17 79/46 97 07/27/17 02:00 36.7 76 18 82/45 (57) 97 Room Air 07/27/17 02:00 36.7 76 15 82/45 97 07/27/17 01:45 36.7 79 18 76/45 97 07/27/17 01:30 36.5 73 16 75/49 96 07/27/17 01:21 36.6 75 18 75/49 98 07/27/17 01:00 36.7 87 16 96 Room Air 07/27/17 00:54 81 18 82/42 95 07/27/17 00:47 36.6 81 18 78/46 97 07/27/17 00:38 85 18 91/50 95 Room Air 07/27/17 00:25 85 18 86/44 98 Room Air 07/27/17 00:24 36.5 79 18 86/44 95 07/27/17 00:12 36.6 84 18 83/52 97 07/27/17 00:05 36.5 81 18 87/52 97 07/26/17 23:52 101 18 93/60 95 Room Air 07/26/17 23:24 91 20 83/54 98 Room Air 07/26/17 22:56 90 18 82/63 100 Room Air 07/26/17 22:50 84 18 95/61 98 Room Air 07/26/17 22:25 98 Room Air 07/26/17 22:20 90 07/26/17 22:10 36.4 84 18 63/43 98 Room Air VITAL SIGNS - Vital signs and nursing notes were reviewed. GENERAL - 52-year-old female appearing her stated age who is in no acute distress. Intoxicated and smells of alcohol. SKIN - Bruising to the RIGHT scapula and anterior shoulder. Spider telangiectasias to the upper chest. HEAD - NC/AT. EYES - PERRL with EOMI bilaterally. Sclera with slight icteric hue. EARS - No deformities of external structures noted on gross examination bilaterally. NOSE - Midline and without cyanosis. No epistaxis or purulent drainage noted. MOUTH/OROPHARYNX - Without perioral cyanosis. Buccal mucosa pink and moist and without leukoplakia. NECK - Neck with FROM. Supple to palpation. LUNGS - Chest wall symmetric without accessory muscle use, intercostals retractions, or central cyanosis. Normal vesicular breath sounds CTA B/L. No wheezes, rales, or rhonchi appreciated. CARDIAC - RRR with S1/S2. No murmur, rubs, or gallops appreciated. ABDOMEN - Abdominal contour flat without pulsations or visible masses. BS normoactive all four quadrants. No tenderness, palpable masses, hepatosplenomegaly, or ascites noted. EXTREMITIES - No clubbing or peripheral cyanosis. No pretibial edema present. +3 /5 radial, posterior tibial, and dorsalis pedis pulses palpated throughout. +5/ 5 strength noted in UE/LE bilaterally. NEUROLOGIC - Cranial nerves II through XII grossly intact. Sensory intact to light touch throughout. PSYCH - A&Ox3 and cooperates fully with examiner. Intoxicated, yet pleasant. Laboratory Results Last 24 Hours Test 07/26/17 22:20 07/26/17 22:25 07/26/17 22:32 07/26/17 22:41 White Blood Count 5.71 K/uL Red Blood Count 2.97 M/uL Hemoglobin 8.9 g/dL Hematocrit 28.4 % Mean Corpuscular Volume 95.6 fL Mean Corpuscular Hemoglobin 30.0 pg Mean Corpuscular Hemoglobin Concent 31.3 g/dl Platelet Count 35 K/uL Mean Platelet Volume 10.7 fL Neutrophils (%) (Auto) 36.8 % Lymphocytes (%) (Auto) 53.1 % Monocytes (%) (Auto) 6.7 % Eosinophils (%) (Auto) 2.5 % Basophils (%) (Auto) 0.5 % Neutrophils # (Auto) 2.11 K/uL Lymphocytes # (Auto) 3.03 K/uL Monocytes # (Auto) 0.38 K/uL Eosinophils # (Auto) 0.14 K/uL Basophils # (Auto) 0.03 K/uL RDW Standard Deviation 65.9 fL RDW Coefficient of Variation 18.7 % Immature Granulocyte % (Auto) 0.4 % Immature Granulocyte # (Auto) 0.02 K/uL Anisocytosis PRESENT Prothrombin Time 15.5 SECONDS Prothromb Time International Ratio 1.5 Activated Partial Thromboplast Time 27.9 SECONDS Partial Thromboplastin Ratio 1.1 Sodium Level 142 mmol/L Potassium Level 3.7 mmol/L Chloride Level 107 mmol/L Carbon Dioxide Level 24 mmol/L Anion Gap 11.0 mmol/L 23.0 mmol/L Blood Urea Nitrogen 8 mg/dl Creatinine 0.91 mg/dl Est Creatinine Clear Calc Drug Dose 73.8 ml/min Estimated GFR () 84.7 Estimated GFR (Non- 73.1 BUN/Creatinine Ratio 9.1 Random Glucose 144 mg/dl Calcium Level 7.4 mg/dl Magnesium Level 2.0 mg/dl Total Bilirubin 1.5 mg/dl Direct Bilirubin 0.8 mg/dl Aspartate Amino Transf (AST/SGOT) 186 U/L Alanine Aminotransferase (ALT/SGPT) 40 U/L Alkaline Phosphatase 187 U/L Total Creatine Kinase 101 U/L Creatine Kinase MB < 0.5 ng/ml Creatine Kinase MB Ratio Troponin I < 0.015 ng/ml Total Protein 6.3 gm/dl Albumin 2.7 gm/dl Lipase 231 U/L Human Chorionic Gonadotropin, Qual NEG Salicylates Level < 1.7 mg/dl Acetaminophen Level < 2 ug/ml Bedside Hemoglobin 9.2 g/dl Bedside Hematocrit 27 % Bedside Sodium 144 mEq/L Bedside Potassium 3.8 mEq/L Bedside Chloride 103 mEq/L Bedside Total CO2 24 mEq/l Bedside Blood Urea Nitrogen 6 mg/dl Bedside Creatinine 1.5 mg/dl Bedside Glucose (other) 148 mg/dl Bedside Ionized Calcium (Donnell) 0.90 mmol/l Ethyl Alcohol mg/dL 407.4 mg/dl Bedside Lactic Acid Venous 6.49 mmol/L Test 07/26/17 22:55 07/27/17 03:39 Bedside Troponin I < 0.030 ng/ml Diagnostic Results Radiological imaging and reports were reviewed by myself. Assessment & Plan (1) Esophageal varices with bleeding (2) Cirrhosis of liver with ascites (3) Hypotension (4) Thrombocytopenia (5) Syncope (6) Alcohol abuse (7) Anemia (8) Back injury Reason Critically Ill: 52-year-old female with jimmy hematemesis and presumed bleeding esophageal varices requiring aggressive blood product management and close hemodynamic monitoring. Neuro - * CAM ICU: NEGATIVE * Chronic Alcohol Abuse: * Currently intoxicated with EtOH of >400. * [facility] protocol in place. * Consider Precedex gtt if needed as she begins to clear. * Check UDS/Acetaminophen/ASA levels Cardiac - * No h/o cardiac disease. * Will trend Trops in the setting of acute blood loss anemia to evaluated for end organ ischemia. * Monitor on telemetry. * Hypotension: * 2/2 volume loss. * Responded to blood products/fluids. Respiratory - * No h/o pulmonary disease. * Monitor pulse ox for any changes while actively transfusing. * Monitor closely for delayed transfusion reactions (TACO/TRALI). * Supplemental O2 PRN. GI - * UGIB 2/2 likely bleeding varices: * Without hematemesis upon arrival in the ED. * Protonix/Octreotide gtts. * GI to scope in AM. * Emergent Endo if return of bleeding which would likely require Harrison/ surgical intervention/IR - transfer. * Continue w/ serial H&Hs * Alcoholic Cirrhosis w/ Portal Hypertension - above. RENAL/LYTES - * No significant electrolyte derangement. * Monitor closely. - * Crain in place. * Strict I&Os ENDO - * No h/o DM or Thyroid Disease. * BSGs per protocol - ISS/gtt PRN HEME - * Acute Blood Loss Anemia 2/2 Variceal Hemorrhage: * Initially w/ H&H of 01/07 - presume this to decline w/ fluid resuscitation. * Received 1 U in the ED - added a second. * Recheck serial H&Hs. * Added on unit of FFP. * Thrombocytopenia: * Chronic - likely 2/2 EtOH abuse. * In the setting of significant bleeding - transfused 1U platelets. ID - * SBP Prophylaxis - Received Zosyn in the ED. * Rocephin qD LINES/IV ACCESS - * PIVs x4 * RIGHT IJ CVL * Crain DVT PROPHYLAXIS - * Hold on chemoprophylaxis in the setting of bleeding and thrombocytopenia. * SCDs. I have personally spent 50 minutes of critical care time in the direct management of this patient. This is a life/limb threatening event. This includes time spent evaluating patient, direct bedside care, chart review, placing orders, interpretation of diagnostic studies, discussion with consultants, patient, and family members, as well as other required patient management activities. This time is exclusive of all separately billable procedures, and teaching time and separate from and in addition to any other critical care service time. Thank you for this consultation allow us to be part of this patient's care. Please refer to my attending physician's documentation for any further recommendations. ADDENDUM (This note references separate billable events as listed above): At 414 I was contacted by nursing staff as the patient had a single episode of jimmy hematemesis measuring 50 cc. Shortly after, the patient had a bowel movement with initially melanotic stools followed by moderate amounts of liquid blood. At this point, I did order an emergent additional 2 units of PRBCs and contacted GI. I spoke with Dr. Jensen who informed me to ready the OR staff. I did speak with charge nurse and arrange this. In addition, I spoke with Dr. Ivey he was kind enough to answer my call. She does agree with treating the patient with tranexamic acid if persistent bleeding. I was contacted by the operating room staff at approximately 6 AM as the patient was found to have gastric variceal bleeding requiring banding 1. In addition, the patient was going to require higher level of care secondary to likely need for intervention, specifically TIPS procedure. At that point, I did speak with attending physicians at [facility] who was kind enough to accept patient in transfer. Additionally, I did speak with [facility] staff. They were not currently flying secondary to the weather, so arrangements were made to have the mobile ICU pick and shovel man the patient. I also spoke with [employer] with local helicopter services who informed me that they were not flying as well. This was all to attempt to expedite transfer the patient given her critical condition. I have personally spent 60 minutes of critical care time in the direct management of this patient. This is a life/limb threatening event. This includes time spent evaluating patient, direct bedside care, chart review, placing orders, interpretation of diagnostic studies, discussion with consultants, patient, and family members, as well as other required patient management activities. This time is exclusive of all separately billable procedures, and teaching time and separate from and in addition to any other critical care service time. Thank you for this consultation allow us to be part of this patient's care. Please refer to my attending physician's documentation for any further recommendations. Physician Supervision Note: I performed an independent assessment of the patient. I discussed the case with Tra Glover PA-C and agree with the findings and plan as documented in the note. Any exceptions or clarifications are listed here: Patient with severe variceal bleed, s/p emergent EGD and banding of cardia level varices Intubated, received 6 units PRBC so far, 1 unit platelets. Continue sedation and mechanical ventilation for now Monitor CBC closely Octreotide and Protonix drips For transfer to tertiary care center for further management, possible TIPS Documented By: Tod Garibay MD Problem Qualifiers (1) Esophageal varices with bleeding: Esophageal varices type: unspecified type Qualified Codes: I85.01 - Esophageal varices with bleeding
[2017-07-27] MEDS ORDERED: OCTREOTIDE ACETATE INJ 500 MCG in NSS 100ML IV SCH (04:15)
[2017-07-27] MEDS: PANTOprazole INJ 40 MG in DEXTROSE 5% 100ML 100 ML IV SCH ×2 (04:19→08:00)
[2017-07-27 04:27] LABS: HEMATOCRIT 19.9 % (37-47); HEMOGLOBIN 6.5 g/dL (12.0-16.0)
[2017-07-27] MEDS ORDERED: FENTANYL CITRATE INJ 50 MCG/1 ML 2 ML VIAL ONE (05:08)
[2017-07-27 05:48] LABS: HEMATOCRIT 20.4 % (37-47)
[2017-07-27] MEDS ORDERED: TRANEXAMIC ACID INJ 1,000 MG in SYRINGE 0 ML IV SCH (06:00)
--- NOTE | 2017-07-27 06:15 | GI REPORT ---
Procedure Date: 07/27/2017 5:38 AM Procedure: Upper GI endoscopy Indications: Hematemesis, Hematochezia Medicines: General Anesthesia Complications: No immediate complications. Estimated Blood Loss: Estimated blood loss: 200 mL. Procedure: Pre-Anesthesia Assessment: - Prior to the procedure, a History and Physical was performed, and patient medications, allergies and sensitivities were reviewed. The patient's tolerance of previous anesthesia was reviewed. - The risks and benefits of the procedure and the sedation options and risks were discussed with the patient. All questions were answered and informed consent was obtained. After obtaining informed consent, the endoscope was passed under direct vision. Throughout the procedure, the patient's blood pressure, pulse, and oxygen saturations were monitored continuously. The Scope was introduced through the mouth, and advanced to the gastric cardia. The upper GI endoscopy was performed with difficulty due to excessive bleeding. The patient tolerated the procedure well. Findings: Red blood was found in the lower third of the esophagus. Varices with spurting blood were found in the cardia. One band was successfully placed with incomplete eradication of varices. Bleeding had stopped at the end of the procedure. Impression: - Red blood in the lower third of the esophagus. - Gastric varices, spurting blood. Incompletely eradicated. Banded. - No specimens collected. Recommendation: - Transfer patient to another hospital. Oumar Jensen M.D. Oumar Jensen MD 07/27/2017 6:15:23 AM This report has been signed electronically. Note Initiated On: 07/27/2017 5:38 AM I attest to the content of the Intraoperative Record and orders documented therein, exceptions below
[2017-07-27] MEDS ORDERED: MIDAZOLAM HCL 1 MG/ML 2ML VIAL ONE (06:28)
[2017-07-27] MEDS ORDERED: PROPOFOL IV EMULSION 10 MG/ML 100 ML VIAL IV STA (06:37)
[2017-07-27] MEDS ORDERED: CISATRACURIUM IV BOLUS & DRIP IV STA (06:37)
[2017-07-27] MEDS ORDERED: MIDAZOLAM 125MG/250ML D5W 250 ML IV SCH (06:37)
--- NOTE | 2017-07-27 06:42 | DIAGNOSTIC IMAGING REPORT ---
ABD/PELVIS IV CONTRAST ONLY CT DOSE: HISTORY: Trauma fall, pain, GI bleed TECHNIQUE: Multiaxial CT images of the abdomen and pelvis were performed following the use of intravenous contrast. A dose lowering technique was utilized adhering to the principles of ALARA. COMPARISON STUDY: 10/04/2015 FINDINGS: Lung bases are clear. Hepatic cirrhotic change. Portal hypertension. Varices are considered patent and unchanged from the prior study. No acute abnormality of the liver spleen or pancreas. Gallstone. Kidneys enhance uniformly. Nonobstructive bowel pattern. No acute posttraumatic change of the abdomen or pelvis. Mild fecal impaction. Degenerative changes of the osseous structures. Prior hysterectomy. IMPRESSION: No acute process. Chronic and postoperative changes as noted. Mild fecal impaction. The above report was generated using voice recognition software. It may contain grammatical, syntax or spelling errors. Electronically signed by: Arslan Kimble M.D. 07/27/2017 6:41 AM Dictated Date/Time: 07/27/2017 6:36 AM
--- NOTE | 2017-07-27 06:44 | DIAGNOSTIC IMAGING REPORT ---
HEAD WITHOUT CONTRAST (CT) CT DOSE: HISTORY: Trauma fall, pain, GI bleed TECHNIQUE: Multiaxial CT images of the head were performed without the use of intravenous contrast. A dose lowering technique was utilized adhering to the principles of ALARA. Comparison: None. Findings: The paranasal sinuses and mastoid air cells are clear. The calvarium and skull base are intact. The ventricles and sulci are within normal limits. There is no mass, hematoma, midline shift, or acute infarct. Impression: No acute intracranial abnormality. The above report was generated using voice recognition software. It may contain grammatical, syntax or spelling errors. Electronically signed by: Arslan Kimble M.D. 07/27/2017 6:43 AM Dictated Date/Time: 07/27/2017 6:41 AM
[2017-07-27] MEDS ORDERED: FENTANYL 1250MCG/250ML NSS 250 ML IV SCH (06:45)
[2017-07-27] MEDS ORDERED: CISATRACURIUM BESYLATE INJ 40 MG in SODIUM CHLORIDE 0.9% 100ML 80 ML IV PRN (06:45)
--- NOTE | 2017-07-27 06:45 | GASTROINTESTINAL CONSULTATION ---
DATE OF CONSULTATION: 07/27/2017 REASON FOR EVALUATION: Hematemesis. HISTORY OF PRESENT ILLNESS: The patient is a 52-year-old with a history of alcohol related cirrhosis with continued use of alcohol. She has had esophageal varices banded most recently in April 2017. The patient had her last drink of alcohol about 7:00 p.m. last night and shortly thereafter began vomiting blood and passing blood rectally. She presented to the hospital where she was transfused immediately with blood and admitted to the intensive care unit and placed on octreotide and Protonix. Her condition stabilized, but then at 4:30 this morning, had another large bright red bloody bowel movement and became hypotensive. She is receiving more blood currently as well as plasma and platelets. GI consultation has been requested to endoscope her and band her if necessary. PAST MEDICAL HISTORY: Remarkable for alcohol related cirrhosis, coagulopathy, thrombocytopenia, hypokalemia. HOME MEDICATIONS: Include vitamin D, folic acid, Neurontin, Corgard, Protonix, vitamin B1 and vitamin E. ALLERGIES: CIPROFLOXACIN. FAMILY HISTORY: Remarkable for cancer and hypertension. SOCIAL HISTORY: The patient is , lives with her family. She has a job. She smokes daily. Consumes alcohol daily. REVIEW OF SYSTEMS: Positive for intoxication and bleeding. PHYSICAL EXAMINATION: GENERAL: The patient is awake, alert, somewhat disheveled. VITAL SIGNS: Blood pressure is 86/44, pulse is 85, O2 saturations 98% on room air. ABDOMEN: Shows a midline scar from a previous hysterectomy for uterine fibroid. LUNGS: Clear. HEART: Showed a normal S1 and S2. Regular rate and rhythm. There does not appear to be any ascites or hepatomegaly. IMPRESSION: The patient has acute gastrointestinal bleed, probably from ruptured esophageal varices. The patient is getting back some supportive care at this time. Plan on taking her to the operating room so we can intubate her and protect her airway and then pass a scope and if she has varices try to control the bleeding by placing bands. In the event that we are not successful, she may need to be transferred for emergency TIPS procedure. I discussed this with the patient and her sister Sada who is a former ICU nurse and has power of banking attorney for healthcare.
[2017-07-27] MEDS ORDERED: ETOMIDATE 2 MG/ML 20 ML VIAL IV ONE (06:54)
[2017-07-27] MEDS ORDERED: LIDOCAINE HCL 2% 2 ML VIAL (20MG/ML) ONE (06:54)
[2017-07-27] MEDS ORDERED: SUCCINYLCHOLINE CHLORIDE 20 MG/ML 10 ML VIAL IV ONE (06:54)
[2017-07-27] MEDS ORDERED: PROPOFOL IV EMULSION 10 MG/ML 20 ML VIAL IV ONE (06:54)
[2017-07-27] MEDS ORDERED: CISATRACURIUM BESYLATE IV SOLN 2 MG/ML 10 ML VIAL ONE (06:55)
--- NOTE | 2017-07-27 07:10 | DIAGNOSTIC IMAGING REPORT ---
CT SCAN OF THE CERVICAL SPINE CLINICAL HISTORY: Fall. COMPARISON STUDY: No priors. TECHNIQUE: CT scan of the cervical spine is performed from the skull base to the upper thoracic spine. Images are reviewed in the axial, sagittal, and coronal planes. IV contrast was not administered for this examination. A dose lowering technique was utilized adhering to the principles of ALARA. FINDINGS: Skeletal structures: The skeletal structures are well mineralized. There is no evidence of fracture or subluxation involving the cervical spine. Vertebral body height is maintained. There is minimal anterolisthesis at C4-C5. Alignment is otherwise preserved. There is straightening of the cervical lordosis. The odontoid process and lateral masses are intact. The atlantoaxial articulation is preserved noting mild productive degenerative change. The spinous processes appear intact. Mild multilevel facet arthropathy is observed. There is an age indeterminant left first rib fracture. Intervertebral discs: The disc spaces are maintained. Central canal: Widely patent. Soft tissues: The prevertebral and paraspinous soft tissues are within normal limits. Calvarium: The visualized calvarium at the skull base appears intact. Brain parenchyma: Partially visualized brain parenchyma the skull base is within normal limits. Sinuses and mastoids: Trace mucosal thickening is seen in the maxillary antra. The mastoid air cells are well pneumatized. Lung apices: Clear as visualized. IMPRESSION: 1. There is no evidence of fracture or subluxation involving the cervical spine. 2. Age-indeterminate left first rib fracture. Electronically signed by: Frederick Diaz M.D. 07/27/2017 7:09 AM Dictated Date/Time: 07/27/2017 7:05 AM
--- NOTE | 2017-07-27 07:13 | Anesthesiology Progress Note ---
Anesthesia Post Op Note Date & Time Jul 27, 2017 at 07:12 Vital Signs Pain Intensity: 0.0 Vital Signs Past 12 Hours Date Time Temp Pulse Resp B/P (MAP) Pulse Ox O2 Delivery O2 Flow Rate FiO2 07/27/17 06:55 36.4 98 19 94/53 97 Mechanical Ventilator 07/27/17 06:45 36.4 100 19 93/53 97 Mechanical Ventilator 07/27/17 06:34 36.4 100 19 100/58 97 Mechanical Ventilator 50 07/27/17 05:15 90 18 101/58 100 07/27/17 05:00 78 18 95/52 96 07/27/17 04:45 36.7 96 18 91/53 93 07/27/17 04:34 36.7 98 18 88/55 98 07/27/17 04:00 36.7 80 18 97/57 (70) 99 Nasal Cannula 2.0 07/27/17 04:00 2 Nasal Cannula 07/27/17 03:00 78 18 77/51 95 07/27/17 02:45 80 18 79/53 92 07/27/17 02:30 82 20 79/50 91 07/27/17 02:15 36.7 85 17 79/46 97 07/27/17 02:00 36.7 76 18 82/45 (57) 97 Room Air 07/27/17 02:00 36.7 76 15 82/45 97 07/27/17 01:45 36.7 79 18 76/45 97 07/27/17 01:30 36.5 73 16 75/49 96 07/27/17 01:21 36.6 75 18 75/49 98 07/27/17 01:00 36.7 87 16 96 Room Air 07/27/17 00:54 81 18 82/42 95 07/27/17 00:47 36.6 81 18 78/46 97 07/27/17 00:38 85 18 91/50 95 Room Air 07/27/17 00:25 85 18 86/44 98 Room Air 07/27/17 00:24 36.5 79 18 86/44 95 07/27/17 00:12 36.6 84 18 83/52 97 07/27/17 00:05 36.5 81 18 87/52 97 07/26/17 23:52 101 18 93/60 95 Room Air 07/26/17 23:24 91 20 83/54 98 Room Air 07/26/17 22:56 90 18 82/63 100 Room Air 07/26/17 22:50 84 18 95/61 98 Room Air 07/26/17 22:25 98 Room Air 07/26/17 22:20 90 07/26/17 22:10 36.4 84 18 63/43 98 Room Air Notes Mental Status: see Notes Pt Amnestic to Procedure: Yes Nausea / Vomiting: adequately controlled Pain: adequately controlled Airway Patency, RR, SpO2: stable & adequate BP & HR: stable & adequate Hydration State: stable & adequate Anesthetic Complications: no major complications apparent Patient left intubated for airway protection for transfer to outside facility. ICU doing a chest film to confirm tube position.
[2017-07-27] MEDS ORDERED: ATROPINE SULFATE 0.1 MG/ML 5ML SYR IV PRN (07:15)
--- NOTE | 2017-07-27 07:17 | DIAGNOSTIC IMAGING REPORT ---
THORACIC SPINE CT CT DOSE: HISTORY: fall, pain, GI bleed TECHNIQUE: Multiaxial CT images of the thoracic spine were performed and reformatted in the sagittal and coronal plane without the use of contrast. A dose lowering technique was utilized adhering to the principles of ALARA. COMPARISON: None. FINDINGS: No fracture or subluxation within the thoracic spine. Mild degenerative disc disease within the mid to lower thoracic spine. No significant central canal or neural foraminal narrowing. Probable subacute to chronic left first rib fracture. IMPRESSION: No fractures within the thoracic spine. Non acute left first rib fracture. Electronically signed by: Juan Chester M.D. 07/27/2017 7:16 AM Dictated Date/Time: 07/27/2017 7:13 AM
--- NOTE | 2017-07-27 07:22 | DIAGNOSTIC IMAGING REPORT ---
CHEST CT WITH CONTRAST CT DOSE: HISTORY: Back pain. fall, pain, GI bleed TECHNIQUE: Multiaxial CT images of the chest were performed following the intravenous administration of contrast. A dose lowering technique was utilized adhering to the principles of ALARA. COMPARISON: Abdomen and pelvis CT 10/04/2015. FINDINGS: Cholelithiasis. Cirrhotic liver demonstrating heterogeneous enhancement. The visualized spleen and adrenal glands are unremarkable. Pancreatic head calcifications and pancreatic atrophy which is only partially visualized. Esophageal varices are noted. No significant mediastinal or hilar lymphadenopathy. The heart is normal in size. No pleural or pericardial effusions. No pneumothorax. The central airways are patent. The lungs are clear. No acute fractures identified. Bilateral nonacute rib fractures including a subacute left first rib fracture. Normal caliber thoracic aorta. The central pulmonary arteries appear patent. IMPRESSION: 1. No acute process within the chest. 2. Bilateral subacute rib fractures. No pneumothorax. 3. Chronic abdominal findings as described above. These are better appreciated on the same day abdominal CT. Electronically signed by: Juan Chester M.D. 07/27/2017 7:21 AM Dictated Date/Time: 07/27/2017 7:16 AM
--- NOTE | 2017-07-27 07:22 | DIAGNOSTIC IMAGING REPORT ---
CHEST ONE VIEW PORTABLE CLINICAL HISTORY: post RIGHT IJ tube position COMPARISON STUDY: 07/26/2017 FINDINGS: Placement of a right internal jugular central catheter. Tip is in the superior vena cava. No evidence pneumothorax. Several old right-sided rib fractures are again noted. Lungs remain generally clear. IMPRESSION: Central line placed in the superior vena cava. No evidence for pneumothorax. The above report was generated using voice recognition software. It may contain grammatical, syntax or spelling errors. Electronically signed by: Arslan Kimble M.D. 07/27/2017 7:21 AM Dictated Date/Time: 07/27/2017 7:21 AM
--- NOTE | 2017-07-27 07:29 | DIAGNOSTIC IMAGING REPORT ---
CT SCAN OF THE LUMBAR SPINE WITHOUT IV CONTRAST CLINICAL HISTORY: Fall. COMPARISON STUDY: Abdominal CT performed concurrently on 07/26/[address] dated 10/04/2015. TECHNIQUE: CT scan of the lumbar spine is performed from the lower thoracic spine to the sacrum. Images are reviewed in the axial, sagittal, and coronal planes. IV contrast was not administered specifically for this examination. There is IV contrast present from the concurrently performed abdominal CT. A dose lowering technique was utilized adhering to the principles of ALARA. CT DOSE: 1868.05 mGy.cm FINDINGS: The skeletal structures are well mineralized for age. There is no evidence of fracture or malalignment involving the lumbar spine. Vertebral body height is maintained. The transverse and spinous processes are intact. There are bilateral pars defects at L5 with minimal anterolisthesis at L5-S1. Alignment is otherwise preserved. Tiny anterior osteophytes are seen throughout. No lytic or blastic lesion is identified. There is mild disc space narrowing seen at L5-S1 with a small posterior disc bulge. There is no CT evidence of large disc herniation. The visualized sacrum and bony pelvis appear intact. The paraspinous soft tissues are within normal limits. Cirrhotic liver morphology is partially visualized. Irregular calcifications are noted in the pancreas and suggest chronic pancreatitis. The spleen appears enlarged. Atherosclerotic calcification is noted in the abdominal aorta. IMPRESSION: 1. There is no evidence of fracture or malalignment involving the lumbar spine. 2. There are bilateral pars defects at L5 with minimal anterolisthesis at L5-S1. 3. Cirrhosis and splenomegaly. 4. Additional findings as above. Dictated: 07/27/2017 7:09 AM Transcribed: 07/27/2017 7:28 AM Ingris Electronically signed by: Frederick Diaz M.D. 07/27/2017 7:39 AM Dictated Date/Time: 07/27/2017 7:09 AM
[2017-07-27] MEDS ORDERED: GABAPENTIN 600MG Q6H DOSE PO SCH (08:00)
--- NOTE | 2017-07-27 08:15 | DIAGNOSTIC IMAGING REPORT ---
CHEST ONE VIEW PORTABLE CLINICAL HISTORY: post intubation tube position COMPARISON STUDY: 07/27/2017. FINDINGS: Interval placement of an endotracheal tube 2.5 cm above the rosmery. Potential developing infiltrate left base. Lungs otherwise appear clear. Central catheter is now within the superior vena cava at the juncture with the right atrium. IMPRESSION: Endotracheal tube positioned 2.5 cm above the rosmery. Potential early infiltrative process left base. The above report was generated using voice recognition software. It may contain grammatical, syntax or spelling errors. Electronically signed by: Arslan Kimble M.D. 07/27/2017 8:14 AM Dictated Date/Time: 07/27/2017 8:13 AM
[2017-07-27 08:53] LABS: CALCIUM 6.3 mg/dl (8.5-10.1); CREATININE 0.43 mg/dl (0.60-1.20); HEMATOCRIT 31.1 % (37-47); HEMOGLOBIN 10.4 g/dL (12.0-16.0); MEAN CELL VOLUME 87.4 fL (80-100); MEAN CORPUSCULAR HEMOGLOBIN 29.2 pg (25-34); MEAN CORPUSCULAR HGB CONC 33.4 g/dl (32-36); POTASSIUM 4.4 mmol/L (3.5-5.1); RED CELL DISTRIBUTION WIDTH CV 17.8 % (11.5-14.5); RED CELL DISTRIBUTION WIDTH SD 55.7 fL (36.4-46.3); WHITE BLOOD COUNT 3.75 K/uL (4.8-10.8)
--- NOTE | 2017-07-27 08:53 | Discharge Summary ---
Discharge Summary Date of Service Jul 27, 2017. Discharge Summary Admission Date: Jul 27, 2017 at 00:11 Discharge Date: Jul 27, 2017 Discharge Disposition: Acute care facility Principal Diagnosis: Bleeding esophageal varices Problems/Secondary Diagnoses: Cirrhosis Acute blood loss anemia Hemorrhagic shock Immunizations: Have You Had Influenza Vaccine: Unknown History of Tetanus Vaccine?: Unknown History of Pneumococcal: Unknown History of Hepatitis B Vaccine: Unknown Procedures: Intubation EGD, red blood in lower third of esophagus, spurting blood from varices, band placed, bleeding stopped, high risk for re-bleeding Consultations: Critical care Gastroenterology Discharge Exam Patient intubated in ICU, vitals show that she is afebrile, HR in the 100-120's , BP ranging from 90-120's systolic, 92% on ventilator. Sedated. Reviewed EGD from early this morning, variceal bleeding with banding but still some bleeding afterwards, needs emergent TIPS. Patient accepted at [facility] [place], awaiting transport. Review of Systems: Constitutional: + problem reported (cannot review, intubated) Physical Exam: General Appearance: WD/WN, no apparent distress Eyes: normal inspection, PERRL, sclerae normal ENT: normal ENT inspection, hearing grossly normal, pharynx normal, + pertinent finding (intubated) Neck: supple, no adenopathy, no JVD, trachea midline Respiratory/Chest: chest non-tender, lungs clear, normal breath sounds, no respiratory distress, no accessory muscle use Cardiovascular: no edema, no gallop, no JVD, no murmur, normal peripheral pulses, + tachycardia Abdomen / GI: normal bowel sounds, non tender, soft, no organomegaly Extremities: normal inspection, no calf tenderness, normal capillary refill , no pedal edema, normal range of motion, pelvis stable Neurologic/Psychiatric: + pertinent finding (sedated) Skin: normal color, warm/dry, no rash Hospital Course Patient is a 52 year old female with a past medical history of alcohol abuse, esophageal varices s/p banding in Apr 2017, Thrombocytopenia, and Tobacco use that presents with hematemesis and multiple syncopal episodes Hematemesis 2/2 Esophageal Varices - Octreotide drip and Protonix drip - 6 units total PRBC transfused, Hb is 7.0 at 5am, repeat pending, blood pressure preserved goal BP is >90 systolic - INR 1.5 on admission, FFP and Vitamin K 10mg given - continue on Rocephin for prophylaxis - Dr. Jensen performed EGD in the OR after intubation, fresh blood in lower third of esophagus bands placed on spurting varices, bleeding stopped at end of procedure, but high risk for continued bleeding - accepted to [facility] for emergent transfer, likely will need emergent TIPS to stop bleeding Syncope --> Most likely vasovagal/ hypotensive event 2/2 bleeding - [address] Head, C-Spine, Chest, Pelvis --> No acute fractures - CXR: No acute cardiopulmonary disease Thrombocytopenia - platelets 35 at time of admission, this is her baseline compared to prior lab work - secondary to cirrhosis Liver Cirrhosis - INR 1.5 - FFP - Vitamin K in ED + 10 mg IV Vit K daily Alcoholism - CIWA Protocol - Gabapentin to prevent withdrawal DVT - SCDs Code Status - Full Resuscitation Total Time Spent: Greater than 30 minutes This includes examination of the patient, discharge planning, medication reconciliation, and communication with other providers. Discharge Instructions Please refer to the electronic Patient Visit Report (Discharge Instructions) for additional information. Follow-Up ICU at [facility] Additional Copies To Linn Khanna M.D.
[2017-07-27] MEDS ORDERED: CALCIUM CHLORIDE 10% 10 ML SYR IV STA (08:55)
[2017-07-27] MEDS ORDERED: CALCIUM CHLORIDE 10% 1,000 MG in SODIUM CHLORIDE 0.9% 50ML 50 ML IV ONE (09:00)
[2017-07-27 09:23] LABS: MEAN PLATELET VOLUME 9.1 fL (7.4-10.4); PLATELET COUNT 35 K/uL (130-400)
[2017-07-27] MEDS ORDERED: PHYTONADIONE INJ 10 MG in SODIUM CHLORIDE 0.9% 50ML 50 ML IV SCH (20:00)
[2017-07-28] MEDS ORDERED: GABAPENTIN 600MG Q8H DOSE PO SCH (06:00)
[2017-07-29] MEDS ORDERED: GABAPENTIN 600MG Q12H DOSE PO SCH (10:00)
[2017-07-30] MEDS ORDERED: GABAPENTIN 600MG Q24H DOSE PO SCH (22:00)
== END 2017-07-27 10:10 | disposition short-term general hospital (02) | DRG 368 ==
LOC: C.EDB 22:09 → C.MSICU 07-27 00:11 → ENRESERV 07-27 00:23
PROVIDERS: ADMIT Student in an Organized Health Care Education/Training Program; ATTEND Hospitalist
PROC: 05HM33Z Insertion of Infusion Device into Right Internal Jugular Vein, Percutaneous Approach (ICD-10-PCS; 2017-07-27)
PROC: 0W3P8ZZ Control Bleeding in Gastrointestinal Tract, Via Natural or Artificial Opening Endoscopic (ICD-10-PCS; principal; 2017-07-27 05:30)
DX: I85.01 Esophageal varices with bleeding (principal); R57.8 Other shock; D62 Acute posthemorrhagic anemia; R55 Syncope and collapse; D69.6 Thrombocytopenia, unspecified; K70.30 Alcoholic cirrhosis of liver without ascites; Z79.899 Other long term (current) drug therapy; Z91.81 History of falling; F17.200 Nicotine dependence, unspecified, uncomplicated; F10.20 Alcohol dependence, uncomplicated

== ENCOUNTER → 2017-08-23 | Outpatient (CLI) | payer OTHER ==
[~2017-08-23] MED LIST changes: -AMX500 PO; +ASCO500T16 PO; +CHOL1000 PO; -FLV400 PO; +FOLI1TAB8 PO; -LBR25 PO; -MULT-506 PO; -NICO14DI5 TD; +NRN/600 PO; -NRN600 PO; +PANT40TA PO; -PRT40 PO; +THIA1TAB11 PO; -THM100 PO; +VITA400C3 PO; +VNTHFA/IN INH
--- NOTE | 2017-08-23 08:46 | DIAGNOSTIC IMAGING REPORT ---
BILIARY ULTRASOUND CLINICAL HISTORY: K74.60,I85.00 hepatic cirrhosis COMPARISON STUDY: CT scan dated 07/26/2017 FINDINGS: The pancreas appears sonographically normal. The liver has a cirrhotic morphology with coarsened echotexture. No focal masses are visualized. There is an 11 mm calculus within the gallbladder. The common bile duct measures 6 mm. There is no right-sided hydronephrosis. There is a patent TIPS. IMPRESSION: 1. Cirrhotic morphology of the liver 2. Cholelithiasis. No evidence of ductal dilatation. 3. Patent TIPS Electronically signed by: Jori Perez M.D. 08/23/2017 8:45 AM Dictated Date/Time: 08/23/2017 8:43 AM
== END | disposition home or self-care (01) ==
LOC: C.ULTR 08:11
PROVIDERS: ATTEND Internal Medicine Gastroenterology
DX: K74.60 Unspecified cirrhosis of liver (principal); I85.00 Esophageal varices without bleeding; K80.20 Calculus of gallbladder without cholecystitis without obstruction

== ENCOUNTER → 2018-01-11 | Outpatient (CLI) | payer OTHER ==
[2018-01-11 13:06] LABS: HEMATOCRIT 33.3 % (37-47); HEMOGLOBIN 10.7 g/dL (12.0-16.0); MEAN CELL VOLUME 90.7 fL (80-100); MEAN CORPUSCULAR HEMOGLOBIN 29.2 pg (25-34); MEAN CORPUSCULAR HGB CONC 32.1 g/dl (32-36); RED CELL DISTRIBUTION WIDTH CV 16.8 % (11.5-14.5); RED CELL DISTRIBUTION WIDTH SD 55.8 fL (36.4-46.3); WHITE BLOOD COUNT 3.92 K/uL (4.8-10.8)
[2018-01-11 13:15] LABS: BASO % 0.5 %; BASO ABS # 0.02 K/uL (0-0.2); EOS ABS # 0.08 K/uL (0-0.5); IG# 0.01 K/uL (0.00-0.02); LYMPH % 41.6 %; LYMPH ABS # 1.63 K/uL (1.2-3.4); MEAN PLATELET VOLUME 9.6 fL (7.4-10.4); MONO % 10.5 %; MONO ABS # 0.41 K/uL (0.11-0.59); NEUT % 45.1 %; NEUT ABS # 1.77 K/uL (1.4-6.5); PLATELET COUNT 69 K/uL (130-400)
== END | disposition home or self-care (01) ==
LOC: C.LAB 11:50
PROVIDERS: ATTEND Family Medicine
DX: M25.461 Effusion, right knee (principal)

== ENCOUNTER 2018-07-27 17:22 | Inpatient (IN) ==
[2018-07-27] MEDS ORDERED: MoRPHine SULFATE 4 MG/ML 1 ML CARP\\VIAL IV STA (18:06)
[2018-07-27] MEDS ORDERED: ONDANSETRON INJ 2 MG/ML 2 ML VIAL IV STA (18:06)
[2018-07-27] MEDS ORDERED: SODIUM CHLORIDE 0.9% 1000ML 1,000 ML IV SCH (18:15)
[2018-07-27] MEDS ORDERED: IOVERSOL 100ml IV PRN (18:51)
[2018-07-27 18:56] LABS: INR 1.4 (0.9-1.1)
[2018-07-27 19:06] LABS: Alanine Aminotransferase 32 U/L (12-78); Albumin Level 3.3 gm/dl (3.4-5.0); Aspartate Aminotransferase 50 U/L (15-37); BUN Creatinine Ratio 16.1 (10-20); Blood Urea Nitrogen 11 mg/dl (7-18); Calcium 8.6 mg/dl (8.5-10.1); Carbon Dioxide 28 mmol/L (21-32); Chloride 107 mmol/L (98-107); Creatinine Clr Calc Pharmacy 106.4 ml/min; Est GFR (African American) 116.6; Est GFR (Non-African American) 100.6; Glucose 99 mg/dl (70-99); Potassium 3.9 mmol/L (3.5-5.1); Sodium 142 mmol/L (136-145)
[2018-07-27 19:10] LABS: Albumin Globulin Ratio 0.8 (0.9-2); Alkaline Phosphatase 261 U/L (45-117); Bilirubin,Total 2.3 mg/dl (0.2-1); Globulin 4.1 gm/dl (2.5-4.0); Total Protein 7.4 gm/dl (6.4-8.2); Troponin I < 0.015 ng/ml (0-0.045)
--- NOTE | 2018-07-27 19:15 | CT Scan Report ---
ABDOMEN AND PELVIS CT WITH IV CONTRAST CT DOSE: 343.67 mGy.cm HISTORY: epigastric pain s/p ercp TECHNIQUE: Multiaxial CT images of the abdomen and pelvis were performed following the use of intrave nous contrast. A dose lowering technique was utilized adhering to the principles of ALARA. COMPARISON STUDY: Abdomen and pelvis CT 10/04/2015. FINDINGS: The lung bases are essentially clear. No pneumoperitoneum. No pneumatosis. Bilateral L5 spo ndylolysis with associated spondylitic the cysts. Distended and fluid-filled stomach and proximal to mid small bowel. Focal transition point within the midabdomen on image 233 at the level of the distal jejunum. Therefore, this is consistent with a small bowel obstruction. The transition point may be s econdary to an adhesion. The distal small bowel is decompressed. Nodular contour to the liver consist ent with cirrhosis. Stable 7 mm hypodense lesion within the hepatic dome. This is too small to charac terize but favors a cyst. Evidence for prior TIPS procedure. The shunt is patent. There is a 1 cm sto ne in the gallbladder neck. No inflammatory change adjacent to the gallbladder. Mild gallbladder wall thickening may be due to the patient's cirrhosis. The main portal vein is patent. No retroperitoneal lymphadenopathy. The spleen is mildly enlarged. This is similar to the prior study. The kidneys are unremarkable. No hydronephrosis. Normal adrenal glands. Multiple calcifications at the pancreatic hea d consistent with chronic pancreatitis. No peripancreatic inflammatory change to suggest acute pancre atitis at this time. The bladder is unremarkable. The uterus is surgically absent. Colonic diverticul osis. No evidence for diverticulitis. Pelvic sidewall surgical clips are noted. No bowel wall thicken ing. Normal appendix. IMPRESSION: 1. Small bowel obstruction with a focal transition point within the midabdomen at the level of the di stal jejunum. This may be secondary to an adhesion. 2. Cirrhotic liver with splenomegaly. Evidence for prior TIPS procedure. This shunt is patent. 3. Cholelithiasis. Mild gallbladder wall thickening may be due to the underlying cirrhosis. No adjace nt inflammatory change. 4. Chronic pancreatitis. No CT evidence for acute pancreatitis. 5. Colonic diverticulosis. No evidence for diverticulitis. 6. Normal appendix. Electronically signed by: Juan Chester M.D. 07/27/2018 7:14 PM
[2018-07-27 19:18] LABS: Hematocrit (blood only) 42.4 % (37-47); Hemoglobin 15.2 g/dL (12.0-16.0); Mean Corpuscular Hgb Conc 35.8 g/dL (32-36); Mean Corpuscular Volume 96.6 fL (80-100); Platelet Count 65 K/uL (130-400); RDW Coefficient of Variation 14.7 % (11.5-14.5); RDW Standard Deviation 51.5 fL (36.4-46.3); Red Blood Count 4.39 M/uL (4.2-5.4); White Blood Count 5.95 K/uL (4.8-10.8)
[2018-07-27 19:19] LABS: Basophils # (auto) 0.02 K/uL (0-0.2); Basophils % (auto) 0.3 %; Eosinophils # (auto) 0.12 K/uL (0-0.5); Immature Granulocytes # (auto) 0.01 K/uL (0.00-0.02); Immature Granulocytes % (auto) 0.2 %; Lymphocytes # (auto) 1.93 K/uL (1.2-3.4); Lymphocytes % (auto) 32.4 %; Monocytes # (auto) 0.64 K/uL (0.11-0.59); Monocytes % (auto) 10.8 %; Neutrophils # (auto) 3.23 K/uL (1.4-6.5); Neutrophils % (auto) 54.3 %
[2018-07-27] MEDS ORDERED: PIPERACILL/TAZOBAC CONSULT ACTIVE PRN ×2 (19:45→23:15)
[2018-07-27] MEDS ORDERED: PIPERACILLIN/TAZOBACTAM 4.5 GM/120 ML BAG IV ONE (19:45)
--- NOTE | 2018-07-27 19:49 | Emergency Department Note ---
Entered by Alphonso Stoddard acting as a scribe for Baltazar Tan M.D. History of Present Illness General Chief complaint: Abdominal Pain Stated complaint: ABD CRAMPING,VOMITING Source: patient History of Present Illness Onset (ago): hour(s) (this morning) Location: abdomen (upper) Radiation: non-radiation (pain does not radiate to back) Pain Consistency: + other (worsening) Maximum Pain Intensity: 10 Relieved By: not by movement Associated symptoms: + denies other symptoms (recent bowel movement), + nausea/vomiting and + other (abdominal bloating); no fever/chills The patient is a 53 year old F who presents to the Emergency Room with complaints of worsening upper abdominal pain starting since this morning. She states that she saw Dr. Jensen, [place] video [employer] intern, yesterday and had a scope done. She notes that Dr. Jensen did not find any gallstones. She adds that this morning she noticed some bloating in her abdomen after eating johnson akfast. She notes that she tried to move around but states that it did not relieve her symptoms. She denies that her pain radiates to her back. She states that she currently has nausea and vomiting. She denies having fevers and a recent bowel movement. Home Medications Home Medications Medication Instructions Recorded Confirmed Type albuterol sulfate [ProAir HFA] 2 puff INHALATION Q6H PRN 02/04/18 07/27/18 History cholecalciferol (vitamin D3) 1,000 units PO QPM 02/04/18 07/27/18 History [Vitamin D3] gabapentin [Neurontin] 600 mg PO TID 02/04/18 07/27/18 History lactulose [Generlac] 15 ml PO QAM 02/04/18 07/27/18 History pantoprazole 40 mg PO DAILY PRN 02/04/18 07/27/18 History thiamine HCl (vitamin B1) 250 mg PO QPM 02/04/18 07/27/18 History vitamin A 8,000 units PO QPM 02/04/18 07/27/18 History vitamin E 400 units PO QPM 02/04/18 07/27/18 History diclofenac sodium 75 mg PO BID PRN 07/27/18 07/27/18 History Allergies Allergy/AdvReac Type Severity Reaction Status Date / Time Cipro Allergy Unknown RASH Unverified 10/04/15 12:51 ciprofloxacin Allergy Unknown RASH Verified 07/27/18 19:13 rifaximin [From Xifaxan] Allergy Unknown Rash Verified 07/27/18 19:13 Past Med/Surg History Medical History Asthma (Chronic) USES PRN INH RARELY - LAST USED APPROX 1 MO AGO Cirrhosis (Chronic) ETOH ETIOLOGY Cirrhosis of liver with ascites (Chronic) Ascites Cardiac murmur LAST ECHO 07/2017 Choledocholithiasis Esophageal varices HX BANDING GI bleed Gall stones History of anal fissures Hx of peripheral neuropathy Hypocalcemia Thrombocytopenia PCP MONITORING Tobacco abuse Surgical History History of total abdominal hysterectomy and bilateral salpingo-oophorectomy (Chronic) History of arthroscopy RT KNEE History of colonoscopy with polypectomy History of dilatation and curettage History of esophagogastroduodenoscopy (EGD) WITH BANDING History of tooth extraction WISDOM TEETH Nausea and vomiting after administration of anesthetic agent S/P TIPS (transjugular intrahepatic portosystemic shunt) [place] [facility] [place] Preferred Language: Lithuanian Beliefs That Will Affect Care: None Current Living Situation: Spouse Feels Safe at Home: Yes Smoking Status: Never smoker Hx Alcohol Use: No (QUIT 1 YEAR AGO) Hx Substance Use: No Review of Systems See HPI for pertinent positives & negatives. and A total of 10 systems reviewed and were otherwise negative Physical Exam Vital Signs Vital Signs - 24 hr 07/27/18 17:36 07/27/18 18:39 07/27/18 19:30 Temperature 36.5 C Temperature Source Oral Sepsis Recent Fever Within 48 Hours No Sepsis Action Taken by Nursing No Action Required Pulse Rate 87 Pulse Rate [Apical] 77 81 Respiratory Rate 18 19 18 Respiratory Effort / Characteristics Non-Labored Spontaneous Respiratory Depth Normal Normal Respiratory Pattern Regular Blood Pressure 130/82 Blood Pressure [Right Arm] 140/85 155/88 H Blood Pressure Mean 98 Blood Pressure Mean [Right Arm] 103 110 Pulse Oximetry 95 96 96 Oxygen Delivery Method Room Air Room Air Room Air 07/27/18 22:09 Temperature Temperature Source Sepsis Recent Fever Within 48 Hours Sepsis Action Taken by Nursing Pulse Rate Pulse Rate [Apical] Respiratory Rate 18 Respiratory Effort / Characteristics Respiratory Depth Respiratory Pattern Blood Pressure Blood Pressure [Right Arm] Blood Pressure Mean Blood Pressure Mean [Right Arm] Pulse Oximetry 97 Oxygen Delivery Method Room Air GENERAL: Awake, alert, uncomfortable-appearing HENT: Normocephalic, atraumatic. EYES: Normal conjunctiva. Sclera non-icteric. NECK: Supple. No nuchal rigidity. RESPIRATORY: Clear to auscultation. No wheezes. Normal respiratory effort. CARDIAC: Normal rate. Normal rhythm. Extremities warm and well perfused. GI: Soft, mildly distended. Moderate RUQ epigastric tenderness to palpation. No masses. RECTAL: Deferred. MUSCULOSKELETAL: Atraumatic. Chest examination reveals no tenderness. LOWER EXTREMITIES: Calves are equal size bilaterally and non-tender. No edema NEURO: Normal sensorium. No sensory or motor deficits noted. No facial droop. SKIN: Warm and dry. No rash or jaundice noted. Course 1800: Past medical records reviewed. The patient was evaluated in room C11B, and a complete history and physical examination were performed. 1953: I reviewed the patient's case with Dr. Ernie Licona, [facility] Hospit alist. He will evaluate the patient for further management. 2052: I reviewed the patient's case with Dr. Hughes, [facility]. Consultations Consultation #1: I reviewed the patient's case with Dr. Ernie Licona, [facility] Hospitalist. He will evaluate the patient for further management. Time: 19:54 Consultation #2: I reviewed the patient's case with Dr. Hughes, [facility]. Time: 20:53 Administered Medications Ioversol (Optiray 320 100ml) 94 ml IV ONCE PRN PRN Reason: Interaction Checking Stop: 07/31/18 18:50 Last Admin: 07/27/18 18:52 Dose: 94 ml Documented by: [id number] Discontinued Medications Sodium Chloride (Nss 1000ml) 1,000 mls @ 999 mls/hr IV .Q1H1M IBIS Stop: 07/27/18 19:15 Last Infusion: 07/27/18 21:16 Dose: 0 mls/hr Documented by: [id number] Admin: 07/27/18 18:34 Dose: 999 mls/hr Documented by: [id number] Piperacillin Sod/Tazobactam Sod (Zosyn) 4.5 gm in 120 mls @ 240 mls/hr IV NOW ONE Stop: 07/27/18 20:14 Last Infusion: 07/27/18 21:16 Dose: 0 mls/hr Documented by: [id number] Admin: 07/27/18 20:07 Dose: 240 mls/hr Documented by: [id number] Morphine Sulfate (Morphine Sulfate) 4 mg IV NOW STA Stop: 07/27/18 18:07 Last Admin: 07/27/18 18:35 Dose: 4 mg Documented by: [id number] Ondansetron HCl (Zofran) 4 mg IV NOW STA Stop: 07/27/18 18:07 Last Admin: 07/27/18 18:35 Dose: 4 mg Documented by: [id number] Medical Decision Making Differential Diagnosis Etiologies such as appendicitis, diverticulitis, PUD, biliary pathology, UTI, pancreatitis, obstruction, mesenteric ischemia, aortic pathology, infections, inflammatory bowel disease, renal colic, as well as others were entertained. Medical Records Attestation: I reviewed the patient's medical records. Home Medications Current Medication List: was personally reviewed by me Laboratory Data Attestation: I reviewed the patient's lab results. Result diagrams: 07/27/18 18:30 07/27/18 18:30 Lab Results 07/27/18 07/27/18 07/27/18 Range/Units 18:30 18:30 18:30 WBC 5.95 (4.8-10.8) K/uL RBC 4.39 (4.2-5.4) M/uL Hgb 15.2 (12.0-16.0) g/dL Hct 42.4 (37-47) % MCV 96.6 (80-100) fL MCH 34.6 H (25-34) pg MCHC 35.8 (32-36) g/dL RDW Std Deviation 51.5 H (36.4-46.3) fL RDW Coeff of Carolyn 14.7 H (11.5-14.5) % Plt Count 65 L (130-400) K/uL MPV 12.0 H (7.4-10.4) fL Immature Gran % (Auto) 0.2 % Neut % (Auto) 54.3 % Lymph % (Auto) 32.4 % [place] % (Auto) 10.8 % Eos % (Auto) 2.0 % Baso % (Auto) 0.3 % Immature Gran # (Auto) 0.01 (0.00-0.02) K/uL Neut # (Auto) 3.23 (1.4-6.5) K/uL Lymph # (Auto) 1.93 (1.2-3.4) K/uL [place] # (Auto) 0.64 H (0.11-0.59) K/uL Eos # (Auto) 0.12 (0-0.5) K/uL Baso # (Auto) 0.02 (0-0.2) K/uL PT 14.0 H (9.0-12.0) Seconds INR 1.4 H (0.9-1.1) Sodium 142 (136-145) mmol/L Potassium 3.9 (3.5-5.1) mmol/L Chloride 107 (98-107) mmol/L Carbon Dioxide 28 (21-32) mmol/L Anion Gap 7.0 (3-11) BUN 11 D (7-18) mg/dl Creatinine 0.68 (0.6-1.2) mg/dl Est Cr Clr Drug Dosing 106.4 ml/min Est GFR ( Amer) 116.6 Est GFR (Non-Af Amer) 100.6 BUN/Creatinine Ratio 16.1 (10-20) Glucose 99 (70-99) mg/dl Calcium 8.6 (8.5-10.1) mg/dl Total Bilirubin 2.3 H (0.2-1) mg/dl AST 50 H (15-37) U/L ALT 32 (12-78) U/L Alkaline Phosphatase 261 H (45-117) U/L Troponin I < 0.015 (0-0.045) ng/ml Total Protein 7.4 (6.4-8.2) gm/dl Albumin 3.3 L (3.4-5.0) gm/dl Globulin 4.1 H (2.5-4.0) gm/dl Albumin/Globulin Ratio 0.8 L (0.9-2) Lipase 46 L (73-393) U/L Urine Color Urine Appearance (Clear) Urine pH (4.5-7.5) Ur Specific [place] (1.000-1.030) Urine Protein (Negative) Urine Glucose (UA) (Negative) Urine Ketones (Negative) Urine Blood (Negative) Urine Nitrite (Negative) Urine Bilirubin (Negative) Urine Urobilinogen (Negative) Ur Leukocyte Esterase (Negative) Urine WBC (Auto) (0-5) /hpf Urine RBC (Auto) (0-4) /hpf U Hyaline Cast (Auto) (0-5) /lpf U Epithel Cells (Auto) (0-5) /lpf Urine Bacteria (Auto) (Negative) 07/27/18 Range/Units 19:43 WBC (4.8-10.8) K/uL RBC (4.2-5.4) M/uL Hgb (12.0-16.0) g/dL Hct (37-47) % MCV (80-100) fL MCH (25-34) pg MCHC (32-36) g/dL RDW Std Deviation (36.4-46.3) fL RDW Coeff of Carolyn (11.5-14.5) % Plt Count (130-400) K/uL MPV (7.4-10.4) fL Immature Gran % (Auto) % Neut % (Auto) % Lymph % (Auto) % [place] % (Auto) % Eos % (Auto) % Baso % (Auto) % Immature Gran # (Auto) (0.00-0.02) K/uL Neut # (Auto) (1.4-6.5) K/uL Lymph # (Auto) (1.2-3.4) K/uL [place] # (Auto) (0.11-0.59) K/uL Eos # (Auto) (0-0.5) K/uL Baso # (Auto) (0-0.2) K/uL PT (9.0-12.0) Seconds INR (0.9-1.1) Sodium (136-145) mmol/L Potassium (3.5-5.1) mmol/L Chloride (98-107) mmol/L Carbon Dioxide (21-32) mmol/L Anion Gap (3-11) BUN (7-18) mg/dl Creatinine (0.6-1.2) mg/dl Est Cr Clr Drug Dosing ml/min Est GFR ( Amer) Est GFR (Non-Af Amer) BUN/Creatinine Ratio (10-20) Glucose (70-99) mg/dl Calcium (8.5-10.1) mg/dl Total Bilirubin (0.2-1) mg/dl AST (15-37) U/L ALT (12-78) U/L Alkaline Phosphatase (45-117) U/L Troponin I (0-0.045) ng/ml Total Protein (6.4-8.2) gm/dl Albumin (3.4-5.0) gm/dl Globulin (2.5-4.0) gm/dl Albumin/Globulin Ratio (0.9-2) Lipase (73-393) U/L Urine Color Yellow Urine Appearance Clear (Clear) Urine pH 8.0 H (4.5-7.5) Ur Specific [place] 1.039 H (1.000-1.030) Urine Protein Negative (Negative) Urine Glucose (UA) Negative (Negative) Urine Ketones Negative (Negative) Urine Blood Negative (Negative) Urine Nitrite Negative (Negative) Urine Bilirubin Negative (Negative) Urine Urobilinogen Negative (Negative) Ur Leukocyte Esterase Trace H (Negative) Urine WBC (Auto) 1-5 (0-5) /hpf Urine RBC (Auto) 0-4 (0-4) /hpf U Hyaline Cast (Auto) 0 (0-5) /lpf U Epithel Cells (Auto) 20-30 H (0-5) /lpf Urine Bacteria (Auto) Negative (Negative) Imaging Data Radiologist's Impression: Radiology results as stated below per my review and the radiologist's interpretation: ABDOMEN AND PELVIS CT WITH IV CONTRAST CT DOSE: 343.67 mGy.cm HISTORY: epigastric pain s/p ercp TECHNIQUE: Multiaxial CT images of the abdomen and pelvis were performed following the use of intravenous contrast. A dose lowering technique was utilized adhering to the principles of ALARA. COMPARISON STUDY: Abdomen and pelvis CT 10/04/2015. FINDINGS: The lung bases are essentially clear. No pneumoperitoneum. No pneumatosis. Bilateral L5 spondylolysis with associated spondylitic the cysts. Distended and fluid-filled stomach and proximal to mid small bowel. Focal tr ansition point within the midabdomen on image 233 at the level of the distal jejunum. Therefore, this is consistent with a small bowel obstruction. The transition point may be secondary to an adhesion. The distal small bowel is decompressed. Nodular contour to the liver consistent with cirrhosis. Stable 7 mm hypodense lesion within the hepatic dome. This is too small to characterize but favors a cyst. Evidence for prior TIPS procedure. The shunt is patent. There is a 1 cm stone in the gallbladder neck. No inflammatory change adjacent to the gallbladder. Mild gallbladder wall thickening may be due to the patient's cirrhosis. The main portal vein is patent. No retroperitoneal lymphadenopathy. The spleen is mildly enlarged. This is similar to the prior study. The kidneys are unremarkable. No hydronephrosis. Normal adrenal glands. Multiple calcifications at the pancreatic head consistent with chronic pancreatitis. No peripancreatic inflammatory change to suggest acute pancreatitis at this time. The bladder is unremarkable. The uterus is surgically absent. Colonic diverticulosis. No evidence for diverticulitis. Pelvic sidewall surgical clips are noted. No bowel wall thickening. Normal appendix. IMPRESSION: 1. Small bowel obstruction with a focal transition point within the midabdomen at the level of the distal jejunum. This may be secondary to an adhesion. 2. Cirrhotic liver with splenomegaly. Evidence for prior TIPS procedure. This shunt is patent. 3. Cholelithiasis. Mild gallbladder wall thickening may be due to the underlying cirrhosis. No adjacent inflammatory change. 4. Chronic pancreatitis. No CT evidence for acute pancreatitis. 5. Colonic diverticulosis. No evidence for diverticulitis. 6. Normal appendix. Electronically signed by: Juan Chester M.D. 07/27/2018 7:14 PM ECG Data Attestation: I personally reviewed and interpreted this ECG as follows: Indication: abdominal pain Rate (beats per minute): 64 Rhythm: normal sinus Findings: + other (normal intervals) and + T-wave inversion (Lead 3 T-wave inversion); no PVC, no ST depression and no ST elevation Comparison ECG Date: from (07/26/17) Change: the following changes noted (intervals improved otherwise no change) Blood Pressure Blood Pressure Findings: Elevated blood pressure Blood Pressure Disposition: further management by hospitalist ALONSO Vincent Patient is a 53-year-old female with a history of alcohol abuse, esophageal varices, and TIPS with ERCP yesterday with sphincterotomy performed. Complaining of abdominal pain and bloating starting around 11 this morning. No vomiting of blood noted or fevers. Minimal vomiting without blood. No bowel movement since procedure. Pain is predominantly in the epigastrium and right upper quadrant. Denies trauma or significant lumbar pain. Vital signs stable here the patient in discomfort. CT scan was completed of the abdomen and pelvisalong with laboratory studies. Consider possible hepatitis pancreatitis or perforation given recent procedure. No evidence of pancreatitis or acute transaminitis. Bilirubin is slightly elevated compared to yesterday at 2.3. EKG is unchanged troponin is negative and doubt this is cardiac. Doubt this is pulmonary in nature. Electrolytes otherwise unremarkable. INR 1.4. CT scan shows small bowel obstruction with no evidence of acute diverticulitis, pancreatitis, appendicitis, or significant inflammatory change surrounding the gallbladder. Gallbladder ultrasound was canceled given the significant finding. This again did not have clear evidence of acute cholecystitis. And clinically it seems more like an SBO. There is no significant leukocytosis noted again or fever/infectious symptomatologies. Patient does have history of prior hysterectomy and CT report indicates possibly adhesion causing obstruction. Given history of varices will hold off on NG tube at this time and plan for admission for further medical care. Patient updated. Discussed the case with GI as well who stated NGT would be okay in his opinion and normal SBO management at this time. Impression & Plan Small bowel obstruction Discharge Plan Visit Data Chief Complaint: Abdominal Pain Stated Complaint: ABD CRAMPING,VOMITING ED Provider: Baltazar Tan Discharge Problem: Small bowel obstruction Patient Disposition: Admitted As Inpatient Discharge Instructions Interventions: ED Discharge Assessment Last Done: 07/27/18 22:14 Forms Stand Alone Forms: Call Back Authorization, [facility] Prescriptions Prescriptions: No Action vitamin A 8,000 unit Capsule 8,000 units PO QPM RF: 0 gabapentin [Neurontin] 600 mg Tablet 600 mg PO TID RF: 0 thiamine HCl (vitamin B1) 250 mg Tablet 250 mg PO QPM RF: 0 pantoprazole 40 mg Tablet,Delayed Release (Dr/Ec) 40 mg PO DAILY PRN (Reason: Acid Reflux) RF: 0 albuterol sulfate [ProAir HFA] 90 mcg/actuation Hfa Aerosol Inhaler 2 puff INHALATION Q6H PRN (Reason: Wheezing) RF: 0 vitamin E 400 unit Capsule 400 units PO QPM RF: 0 cholecalciferol (vitamin D3) [Vitamin D3] 1,000 unit Capsule 1,000 units PO QPM RF: 0 lactulose [Generlac] 10 gram/15 mL Solution 15 ml PO QAM RF: 0 diclofenac sodium 75 mg tablet,delayed release (DR/EC) 75 mg PO BID PRN (Reason: Pain) RF: 0 Referrals Referrals: Linn Khanna MD [Primary Care Provider] - The scribe's documentation has been prepared under my direction and personally reviewed by me in its entirety. I confirm that the note above accurately reflects all work, treatment, procedures, and medical decision making performed by me.
[2018-07-27 20:13] LABS: Appearance Urine Clear (Clear); Bacteria Urine Automated Negative (Negative); Bilirubin Urine Negative (Negative); Blood Urine Negative (Negative); Cast Urine Automated 0 /lpf (0-5); Color Urine Yellow; Epithelial Cell Urine Auto 20-30 /lpf (0-5); Glucose Urine UA Negative (Negative); Ketones Urine Negative (Negative); Leukocyte Esterase Urine Trace (Negative); Nitrite Urine Negative (Negative); Protein Urine Negative (Negative); RBC Urine Automated 0-4 /hpf (0-4); Specific Gravity Urine 1.039 (1.000-1.030); Urobilinogen Urine Negative (Negative)
--- NOTE | 2018-07-27 22:54 | History & Physical Report ---
Date of Service July 27, 2018 Assessment & Plan (1) Small bowel obstruction: Small bowel obstruction with focal transition in the mid abdomen distal jejunum-- NPO NSS + KCl 20 mEq at 100 mils per hour. Zofran 4 mg IV every 6 hours as needed. Pantoprazole 40 mg IV daily. Zosyn 3.375 mg IV every 8 hours Morphine sulfate 4 mg IV every 4 hours as needed. Serial CBC with differential, chemistry profile and KUB. Follows with GI Dr. Jensen, with Dr. Hughes covering. Present on Admission?: Yes (2) Cirrhosis of liver with ascites: Liver cirrhosis/ascites/esophageal varices/splenomegaly/history of TIPS/cholelithiasis-- Status post sphincterotomy yesterday by Dr. Jensen. No suggestion of active cholecystitis at this time. Present on Admission?: Yes (3) Varices of esophagus determined by endoscopy: As above. Present on Admission?: Yes (4) Gall stones: As above. Present on Admission?: Yes (5) Splenomegaly: Associated portal hypertension as noted above. Present on Admission?: Yes (6) Asthma: Continue albuterol HFA 2 puffs every 6 hours as needed. Present on Admission?: Yes (7) GERD (gastroesophageal reflux disease): Pantoprazole 40 mg IV daily Present on Admission?: Yes (8) Peripheral neuropathy: Hold gabapentin while NPO Present on Admission?: Yes History of Present Illness Chief Complaint: The patient presents to the emergency department with nausea, vomiting, abdominal bloating and cramping since early this morning. Primary Care Provider: Linn Khanna MD The patient is a 53-year-old female with a past medical history including cirrhosis, esophageal varices, splenomegaly, status post TIPS, status post ERCP yesterday with sphincterotomy by Dr. Jensen who awoke this morning with severe abdominal pain as noted above and presents to the emergency department due to its persistence. Workup in the ED included a CT of abdomen and pelvis, which showed a small bowel obstruction with focal transition in the mid abdomen distal jejunum area along with cirrhosis, splenomegaly, cholelithiasis and chronic pancreatitis. Allergies Allergy/AdvReac Type Severity Reaction Status Date / Time Cipro Allergy Unknown RASH Unverified 10/04/15 12:51 ciprofloxacin Allergy Unknown RASH Verified 07/27/18 19:13 rifaximin [From Xifaxan] Allergy Unknown Rash Verified 07/27/18 19:13 Home Medications Home Medications Medication Instructions Recorded Confirmed Type albuterol sulfate [ProAir HFA] 2 puff INHALATION Q6H PRN 02/04/18 07/27/18 History cholecalciferol (vitamin D3) 1,000 units PO QPM 02/04/18 07/27/18 History [Vitamin D3] gabapentin [Neurontin] 600 mg PO TID 02/04/18 07/27/18 History lactulose [Generlac] 15 ml PO QAM 02/04/18 07/27/18 History pantoprazole 40 mg PO DAILY PRN 02/04/18 07/27/18 History thiamine HCl (vitamin B1) 250 mg PO QPM 02/04/18 07/27/18 History vitamin A 8,000 units PO QPM 02/04/18 07/27/18 History vitamin E 400 units PO QPM 02/04/18 07/27/18 History diclofenac sodium 75 mg PO BID PRN 07/27/18 07/27/18 History Past Med/Surg History Medical History Asthma (Chronic) USES PRN INH RARELY - LAST USED APPROX 1 MO AGO Cirrhosis (Chronic) ETOH ETIOLOGY Cirrhosis of liver with ascites (Chronic) Ascites Cardiac murmur LAST ECHO 07/2017 Choledocholithiasis Esophageal varices HX BANDING GI bleed Gall stones History of anal fissures Hx of peripheral neuropathy Hypocalcemia Thrombocytopenia PCP MONITORING Tobacco abuse Surgical History History of total abdominal hysterectomy and bilateral salpingo-oophorectomy (Chronic) History of arthroscopy RT KNEE History of colonoscopy with polypectomy History of dilatation and curettage History of esophagogastroduodenoscopy (EGD) WITH BANDING History of tooth extraction WISDOM TEETH Nausea and vomiting after administration of anesthetic agent S/P TIPS (transjugular intrahepatic portosystemic shunt) 07/2017 @ [facility] [place] Social History Preferred Language: Yoruba Communication Ability: Effective Surveyor'S Assistant Required: No Beliefs That Will Affect Care: None Current Living Situation: Alone Other Information That Helps Us Care for You: No Feels Safe at Home: Yes Safety Concerns: Feels Safe At This Time Smoking Status: Current every day smoker Hx Alcohol Use: No Hx Substance Use: No Review of Systems The patient denies chest pain, palpitations, shortness of breath, dyspnea on exertion, cough, lower extremity swelling, sore throat, blood in urine or stool, dysuria, urinary frequency or urgency, lightheadedness, dizziness, headache, memory loss, loss of consciousness, rash, abnormal bruising or bleeding, imbalance, focal or generalized weakness, numbness or tingling in arms or legs, generalized arthralgias or myalgias, back or neck pain, or night sweats. The review of systems is otherwise negative other than for that already noted above, and at least 10 systems have been reviewed. Physical Exam Vital Signs (Past 24 Hours): Last Vital Signs Temp 36.5 C 07/27/18 17:36 Pulse 81 07/27/18 19:30 Resp 18 07/27/18 22:09 BP 155/88 H 07/27/18 19: Pulse Ox 97 07/27/18 22:09 Physical Exam: The patient is awake, alert and oriented 3, well developed and well nourished, normocephalic and atraumatic, lying in bed and in no acute distress. HEENT--PERRL, EOMI, mucous membranes and oropharynx dry. Neck--supple. No JVD. No bruits. Thyroid normal, trachea midline, no adenopathy. Heart--normal S1 and S2. No murmurs, rubs or gallops. Lungs--clear bilaterally, no respiratory distress, no accessory muscle use. Abdomen--normal bowel sounds and soft. Nontender. Nondistended, no hernias or masses, no organomegaly. Extremities--no cyanosis or clubbing. No edema. There are good distal pulses b/ l. Dermatologic--normal skin turgor, normal color, no abnormal lymph nodes, no rash. Neurologic--cranial nerves II through XII grossly intact. Rheumatologic--normal range of motion. Psychiatric--normal affect. Results & Data Laboratory Results Laboratory Results WBC 5.95 K/uL (4.8-10.8) 07/27/18 18: RBC 4.39 M/uL (4.2-5.4) 07/27/18 18: Hgb 15.2 g/dL (12.0-16.0) 07/27/18 18: Hct 42.4 % (37-47) 07/27/18 18: MCV 96.6 fL (80-100) 07/27/18 18: MCH 34.6 pg (25-34) H 07/27/18 18:30 MCHC 35.8 g/dL (32-36) 07/27/18 18:30 RDW Std Deviation 51.5 fL (36.4-46.3) H 07/27/18 18:30 RDW Coeff of Carolyn 14.7 % (11.5-14.5) H 07/27/18 18:30 Plt Count 65 K/uL (130-400) L 07/27/18 18: MPV 12.0 fL (7.4-10.4) H 07/27/18 18:30 Immature Gran % (Auto) 0.2 % 07/27/18 18:30 Neut % (Auto) 54.3 % 07/27/18 18:30 Lymph % (Auto) 32.4 % 07/27/18 18:30 [place] % (Auto) 10.8 % 07/27/18 18:30 Eos % (Auto) 2.0 % 07/27/18 18: Baso % (Auto) 0.3 % 07/27/18 18:30 Immature Gran # (Auto) 0.01 K/uL (0.00-0.02) 07/27/18 18:30 Neut # (Auto) 3.23 K/uL (1.4-6.5) 07/27/18 18:30 Lymph # (Auto) 1.93 K/uL (1.2-3.4) 07/27/18 18:30 [place] # (Auto) 0.64 K/uL (0.11-0.59) H 07/27/18 18:30 Eos # (Auto) 0.12 K/uL (0-0.5) 07/27/18 18:30 Baso # (Auto) 0.02 K/uL (0-0.2) 07/27/18 18:30 PT 14.0 Seconds (9.0-12.0) H 07/27/18 18:30 INR 1.4 (0.9-1.1) H 07/27/18 18:30 Sodium 142 mmol/L (136-145) 07/27/18 18:30 Potassium 3.9 mmol/L (3.5-5.1) 07/27/18 18:30 Chloride 107 mmol/L (98-107) 07/27/18 18:30 Carbon Dioxide 28 mmol/L (21-32) 07/27/18 18:30 Anion Gap 7.0 (3-11) 07/27/18 18:30 BUN 11 mg/dl (7-18) D 07/27/18 18:30 Creatinine 0.68 mg/dl (0.6-1.2) 07/27/18 18:30 Est Cr Clr Drug Dosing 106.4 ml/min 07/27/18 18:30 Est GFR ( Amer) 116.6 07/27/18 18:30 Est GFR (Non-Af Amer) 100.6 07/27/18 18:30 BUN/Creatinine Ratio 16.1 (10-20) 07/27/18 18:30 Glucose 99 mg/dl (70-99) 07/27/18 18:30 Calcium 8.6 mg/dl (8.5-10.1) 07/27/18 18:30 Total Bilirubin 2.3 mg/dl (0.2-1) H 07/27/18 18:30 AST 50 U/L (15-37) H 07/27/18 18:30 ALT 32 U/L (12-78) 07/27/18 18:30 Alkaline Phosphatase 261 U/L (45-117) H 07/27/18 18:30 Troponin I < 0.015 ng/ml (0-0.045) 07/27/18 18:30 Total Protein 7.4 gm/dl (6.4-8.2) 07/27/18 18:30 Albumin 3.3 gm/dl (3.4-5.0) L 07/27/18 18:30 Globulin 4.1 gm/dl (2.5-4.0) H 07/27/18 18:30 Albumin/Globulin Ratio 0.8 (0.9-2) L 07/27/18 18:30 Lipase 46 U/L (73-393) L 07/27/18 18:30 Urine Color Yellow 07/27/18:43 Urine Appearance Clear (Clear) 07/27/18 19:43 Urine pH 8.0 (4.5-7.5) H 07/27/18 19:43 Ur Specific [place] 1.039 (1.000-1.030) H 07/27/18 19:43 Urine Protein Negative (Negative) 07/27/18 19:43 Urine Glucose (UA) Negative (Negative) 07/27/18 19:43 Urine Ketones Negative (Negative) 07/27/18 19:43 Urine Blood Negative (Negative) 07/27/18 19:43 Urine Nitrite Negative (Negative) 07/27/18 19:43 Urine Bilirubin Negative (Negative) 07/27/18 19:43 Urine Urobilinogen Negative (Negative) 07/27/18 19:43 Ur Leukocyte Esterase Trace (Negative) H 07/27/18 19:43 Urine WBC (Auto) 1-5 /hpf (0-5) 07/27/18 19:43 Urine RBC (Auto) 0-4 /hpf (0-4) 07/27/18 19:43 U Hyaline Cast (Auto) 0 /lpf (0-5) 07/27/18 19:43 U Epithel Cells (Auto) 20-30 /lpf (0-5) H 07/27/18 19:43 Urine Bacteria (Auto) Negative (Negative) 07/27/18 19:43 Diagnostic Findings [place], [place] [phone] CT Scan Report Patient: NEREIDA DEL RIO Date: 07/27/18 MR#: [id number]: [address] Acct ID:[id number]: Date: 1965[facility] Zip: [place] [address] Age: 53Location: ED Sex: F Room/Bed: Att Phy: Diagnosis: ABD CRAMPING,VOMITING Nayeli Phy: Linn Khanna MDService Date: 07/27/18 Fam Phy: Oumar Jensen M.D.Interpreting Phy: Juan Chester MD Admit Phy: Ordering Phy: Baltazar Tan M.D. cc: ~ ABDOMEN AND PELVIS CT WITH IV CONTRAST CT DOSE: 343.67 mGy.cm HISTORY: epigastric pain s/p ercp TECHNIQUE: Multiaxial CT images of the abdomen and pelvis were performed following the use of intravenous contrast. A dose lowering technique was utilized adhering to the principles of ALARA. COMPARISON STUDY: Abdomen and pelvis CT 10/04/2015. FINDINGS: The lung bases are essentially clear. No pneumoperitoneum. No pneumatosis. Bilateral L5 spondylolysis with associated spondylitic the cysts. Distended and fluid-filled stomach and proximal to mid small bowel. Focal transition point within the midabdomen on image 233 at the level of the distal jejunum. Therefore, this is consistent with a small bowel obstruction. The transition point may be secondary to an adhesion. The distal small bowel is decompressed. Nodular contour to the liver consistent with cirrhosis. Stable 7 mm hypodense lesion within the hepatic dome. This is too small to characterize but favors a cyst. Evidence for prior TIPS procedure. The shunt is patent. There is a 1 cm stone in the gallbladder neck. No inflammatory change adjacent to the gallbladder. Mild gallbladder wall thickening may be due to the patient's cirrhosis. The main portal vein is patent. No retroperitoneal lymphadenopathy. The spleen is mildly enlarged. This is similar to the prior study. The kidneys are unremarkable. No hydronephrosis. Normal adrenal glands. Multiple calcifications at the pancreatic head consistent with chronic pancreatitis. No peripancreatic inflammatory change to suggest acute pancreatitis at this time. The bladder is unremarkable. The uterus is surgically absent. Colonic diverticulosis. No evidence for diverticulitis. Pelvic sidewall surgical clips are noted. No bowel wall thickening. Normal appendix. IMPRESSION: 1. Small bowel obstruction with a focal transition point within the midabdomen at the level of the distal jejunum. This may be secondary to an adhesion. 2. Cirrhotic liver with splenomegaly. Evidence for prior TIPS procedure. This shunt is patent. 3. Cholelithiasis. Mild gallbladder wall thickening may be due to the underlying cirrhosis. No adjacent inflammatory change. 4. Chronic pancreatitis. No CT evidence for acute pancreatitis. 5. Colonic diverticulosis. No evidence for diverticulitis. 6. Normal appendix. Electronically signed by: Juan Chester M.D. 07/27/2018 7:14 PM Dictated: 07/27/181902 Transcribed: 07/27/181902 [facility], [place] GI REPORT Signed Patient: NEREIDA DEL RIO Date: 07/26/18 MR#: [id number] Phy: Oumar Jensen M.D. Acct ID:[id number] Phy: Linn Khanna MD Date: 1965Fa Phy: Linn Khanna MD Age: 53Location: ASU Sex: F Room/Bed: cc: DICTATED BY: Oumar Jensen M.D. Patient Name: Nereida Del Rio Procedure Date: 07/26/2018 7:27 AM Date of : 1965 Admit Type: Outpatient Age: 53 Gender: Female Attending MD: Oumar Jensen MD Procedure: ERCP Providers: Oumar Jensen MD Referring MD: Oumar Jensen MD Indications: Suspected bile duct stone(s) Medicines: General Anesthesia, Ancef 1000 mg IV Complications: No immediate complications. Estimated Blood Loss: Estimated blood loss: none. Procedure: Pre-Anesthesia Assessment: - Prior to the procedure, a History and Physical was performed, and patient medications, allergies and sensitivities were reviewed. The patient's tolerance of previous anesthesia was reviewed. - The risks and benefits of the procedure and the sedation options and risks were discussed with the patient. All questions were answered and informed consent was obtained. After obtaining informed consent, the scope was passed under direct vision. Throughout the procedure, the patient's blood pressure, pulse, and oxygen saturations were monitored continuously. The scope was introduced through the mouth, and advanced to the duodenum and used to inject contrast into the bile duct. The ERCP was accomplished without difficulty. The patient tolerated the procedure well. Findings: A 7 mm biliary sphincterotomy was made with a short nose sphincterotome using ERBE electrocautery. There was no post-sphincterotomy bleeding. The common bile duct was diffusely dilated. The largest diameter was 8 mm. To size the object(s), the biliary tree was swept with a 10 mm balloon starting at the bifurcation. Sludge was swept from the duct. A TIPS stent is visible in the liver. Impression: - The common bile duct was dilated. - A biliary sphincterotomy was performed. - The biliary tree was swept and sludge was found. Recommendation: - Discharge patient to home (ambulatory). - Continue present medications. - Refer to a surgeon at appointment to be scheduled. Fartun Muller MD 07/26/2018 8:23:01 AM This report has been signed electronically. Note Initiated On: 07/26/2018 7:27 AM Number of Addenda: 0 I attest to the content of the Intraoperative Record and orders documented therein, exceptions below {[id number]} Signed By:07/26/[id number] Dictated: 07/26/1827 Transcribed: 07/26/18822Transcriptionist: ALEC The status of this report is Signed. Draft = Not yet reviewed or approved by Medical Physician. Signed = Reviewed and approved by Medical Physician. Code Status & VTE Plan Code Status Full code VTE Prophylaxis Plan VTE Prophylaxis will be ordered: Yes
[2018-07-27] MEDS ORDERED: MoRPHine SULFATE 4 MG/ML 1 ML CARP\\VIAL IV PRN (23:15)
[2018-07-27] MEDS ORDERED: ALBUTEROL HFA 8 GM INHALER INH PRN (23:15)
[2018-07-27] MEDS ORDERED: ONDANSETRON INJ 2 MG/ML 2 ML VIAL IV PRN (23:15)
[2018-07-28] MEDS: NSS + 20MEQ KCL 20 MEQ/1,000 ML BAG IV SCH ×3 (00:16→21:12)
[2018-07-28] MEDS: PIPERACILLIN/TAZOBACTAM 3.375 GM in DEXTROSE 5% 100 ML IV SCH ×2 (00:16→08:19)
[2018-07-28 07:04] LABS: Mean Corpuscular Hgb Conc 34.3 g/dL (32-36); Mean Corpuscular Volume 97.5 fL (80-100); Mean Platelet Volume 11.6 fL (7.4-10.4); Platelet Count 49 K/uL (130-400); RDW Coefficient of Variation 15.2 % (11.5-14.5); Red Blood Count 3.59 M/uL (4.2-5.4)
[2018-07-28 07:15] LABS: Basophils # (auto) 0.02 K/uL (0-0.2); Basophils % (auto) 0.4 %; Eosinophils # (auto) 0.14 K/uL (0-0.5); Immature Granulocytes # (auto) 0.01 K/uL (0.00-0.02); Immature Granulocytes % (auto) 0.2 %; Lymphocytes # (auto) 1.98 K/uL (1.2-3.4); Monocytes # (auto) 0.52 K/uL (0.11-0.59); Monocytes % (auto) 11.3 %; Neutrophils # (auto) 1.93 K/uL (1.4-6.5); Neutrophils % (auto) 42.1 %; RBC Morphology Unremarkable
[2018-07-28 07:17] LABS: INR 1.6 (0.9-1.1); Partial Thromboplastin Ratio 1.5; Partial Thromboplastin Time 41.3 Seconds (21.0-31.0); Prothrombin Time 15.5 Seconds (9.0-12.0)
[2018-07-28 07:22] LABS: Albumin Level 2.3 gm/dl (3.4-5.0); BUN Creatinine Ratio 18.3 (10-20); Calcium 7.3 mg/dl (8.5-10.1); Est GFR (African American) 118.3; Est GFR (Non-African American) 102.1; Potassium 4.3 mmol/L (3.5-5.1)
[2018-07-28 07:24] LABS: Albumin Globulin Ratio 0.7 (0.9-2); Bilirubin,Total 1.4 mg/dl (0.2-1); Globulin 3.1 gm/dl (2.5-4.0); Total Protein 5.4 gm/dl (6.4-8.2)
[2018-07-28] MEDS: PANTOprazole 40 MG in SYRINGE 0 ML IV SCH (11:10)
--- NOTE | 2018-07-28 13:10 | Surgery Consultation ---
Date of Consultation July 28, 2018 Assessment & Plan (1) Small bowel obstruction: pt is a 53 year old female who was admitted to hospital for SBO, IMP: SBO Plan, no surgical indication now, agree with conservative treatment first, IV fluid, NPO, repeat labs am, will F/U History of Present Illness Attending Physician: Gopal Bartlett MD Chief Complaint: The patient presents to the emergency department with nausea, vomiting, abdominal bloating and cramping since early this morning. Primary Care Provider: Linn Khanna MD The patient is a 53-year-old female with a past medical history including cirrhosis, esophageal varices, splenomegaly, status post TIPS, status post ERCP yesterday with sphincterotomy by Dr. Jensen who awoke this morning with severe abdominal pain as noted above and presents to the emergency department due to its persistence. Workup in the ED included a CT of abdomen and pelvis, which showed a small bowel obstruction with focal transition in the mid abdomen distal jejunum area along with cirrhosis, splenomegaly, cholelithiasis and chronic pancreatitis. I ( Dr. Fatima) reviewed pot's H/P with pt, now pt feels better, less abdominal; pain, pt had ERCP last week, no stone in CBD, last BM 2 days ago, pt denies diarrhea, no chest pain, Allergies Allergy/AdvReac Type Severity Reaction Status Date / Time Cipro Allergy Unknown RASH Unverified 10/04/15 12:51 ciprofloxacin Allergy Unknown RASH Verified 07/27/18 19:13 rifaximin [From Xifaxan] Allergy Unknown Rash Verified 07/27/18 19:13 Home Medications Home Medications Medication Instructions Recorded Confirmed Type albuterol sulfate [ProAir HFA] 2 puff INHALATION Q6H PRN 02/04/18 07/27/18 History cholecalciferol (vitamin D3) 1,000 units PO QPM 02/04/18 07/27/18 History [Vitamin D3] gabapentin [Neurontin] 600 mg PO TID 02/04/18 07/27/18 History lactulose [Generlac] 15 ml PO QAM 02/04/18 07/27/18 History pantoprazole 40 mg PO DAILY PRN 02/04/18 07/27/18 History thiamine HCl (vitamin B1) 250 mg PO QPM 18 07/27/18 History vitamin A 8,000 units PO QPM 02/04/18 07/27/18 History vitamin E 400 units PO QPM 02/04/18 07/27/18 History diclofenac sodium 75 mg PO BID PRN 07/27/18 07/27/18 History Patient History Medical History Small bowel obstruction (Acute) Asthma (Chronic) USES PRN INH RARELY - LAST USED APPROX 1 MO AGO Cirrhosis (Chronic) ETOH ETIOLOGY Cirrhosis of liver with ascites (Chronic) Ascites Cardiac murmur LAST ECHO 07/2017 Choledocholithiasis Esophageal varices HX BANDING GI bleed Gall stones History of anal fissures Hx of peripheral neuropathy Hypocalcemia Thrombocytopenia PCP MONITORING Tobacco abuse Surgical History History of total abdominal hysterectomy and bilateral salpingo-oophorectomy (Chronic) History of arthroscopy RT KNEE History of colonoscopy with polypectomy History of dilatation and curettage History of esophagogastroduodenoscopy (EGD) WITH BANDING History of tooth extraction WISDOM TEETH Nausea and vomiting after administration of anesthetic agent S/P TIPS (transjugular intrahepatic portosystemic shunt) 07/2017 @ [facility] [place] Social History Communication Ability: Effective Beliefs That Will Affect Care: None marital status: Single Current Living Situation: Alone Other Information That Helps Us Care for You: No Feels Safe at Home: Yes Safety Concerns: Feels Safe At This Time Smoking Status: Current every day smoker Hx Alcohol Use: No Hx Substance Use: No Review of Systems Ear, Nose, Mouth, Throat: as per Subjective / HPI Respiratory: as per Subjective / HPI Cardiovascular: as per Subjective / HPI cirrhosis, cholelithiasis, S/P TIPS procedure 1 year ago Neurologic: as per Subjective / HPI Psychiatric: as per Subjective / HPI Endocrine: as per Subjective / HPI Hematologic / Lymphatic: as per Subjective / HPI Physical Exam Vital Signs (Past 24 Hours): Last Vital Signs Temp 37 C 07/28/18 07:19 Pulse 64 07/28/18 07:19 Resp 16 07/28/18 07:19 BP 117/73 07/28/18 07:19 Pulse Ox 94 07/28/18 07:19 Constitutional: WD/WN, vitals as above well developed and well nourished Neck: trachea midline, no thyromegaly Respiratory: normal respiratory effort, lungs clear to auscultation normal respiratory effort Cardiovascular: RRR, no murmur, no edema Rate/Rhythm: regular rate and regular rhythm Heart Sounds: normal S1 and normal S2 Gastrointestinal (Abdomen): normal bowel sounds, soft, nontender, no hepatosplenomegaly Percussion/Palpation: abdomen soft NT, ND, BS + Neurologic: awake Psychiatric: Orientation: alert and oriented x 3 Results & Data Laboratory Results Abnormal lab results 07/27/18 07/27/18 07/27/18 Range/Units 18:30 18:30 18:30 WBC (4.8-10.8) K/uL RBC (4.2-5.4) M/uL Hct (37-47) % MCH 34.6 H (25-34) pg RDW Std Deviation 51.5 H (36.4-46.3) fL RDW Coeff of Carolyn 14.7 H (11.5-14.5) % Plt Count 65 L (130-400) K/uL MPV 12.0 H (7.4-10.4) fL [place] # (Auto) 0.64 H (0.11-0.59) K/uL PT 14.0 H (9.0-12.0) Seconds INR 1.4 H (0.9-1.1) APTT (21.0-31.0) Seconds Chloride (98-107) mmol/L Calcium (8.5-10.1) mg/dl Total Bilirubin 2.3 H (0.2-1) mg/dl AST 50 H (15-37) U/L Alkaline Phosphatase 261 H (45-117) U/L Total Protein (6.4-8.2) gm/dl Albumin 3.3 L (3.4-5.0) gm/dl Globulin 4.1 H (2.5-4.0) gm/dl Albumin/Globulin Ratio 0.8 L (0.9-2) Lipase 46 L (73-393) U/L Urine pH (4.5-7.5) Ur Specific [place] (1.000-1.030) Ur Leukocyte Esterase (Negative) U Epithel Cells (Auto) (0-5) /lpf 07/27/18 07/28/18 07/28/18 Range/Units 19:43 06:24 06:24 WBC 4.60 L (4.8-10.8) K/uL RBC 3.59 L (4.2-5.4) M/uL Hct 35.0 L (37-47) % MCH (25-34) pg RDW Std Deviation 54.0 H (36.4-46.3) fL RDW Coeff of Carolyn 15.2 H (11.5-14.5) % Plt Count 49 L (130-400) K/uL MPV 11.6 H (7.4-10.4) fL [place] # (Auto) (0.11-0.59) K/uL PT 15.5 H (9.0-12.0) Seconds INR 1.6 H (0.9-1.1) APTT 41.3 H (21.0-31.0) Seconds Chloride (98-107) mmol/L Calcium (8.5-10.1) mg/dl Total Bilirubin (0.2-1) mg/dl AST (15-37) U/L Alkaline Phosphatase (45-117) U/L Total Protein (6.4-8.2) gm/dl Albumin (3.4-5.0) gm/dl Globulin (2.5-4.0) gm/dl Albumin/Globulin Ratio (0.9-2) Lipase (73-393) U/L Urine pH 8.0 H (4.5-7.5) Ur Specific [place] 1.039 H (1.000-1.030) Ur Leukocyte Esterase Trace H (Negative) U Epithel Cells (Auto) 20-30 H (0-5) /lpf 07/28/18 Range/Units 06:24 WBC (4.8-10.8) K/uL RBC (4.2-5.4) M/uL Hct (37-47) % MCH (25-34) pg RDW Std Deviation (36.4-46.3) fL RDW Coeff of Carolyn (11.5-14.5) % Plt Count (130-400) K/uL MPV (7.4-10.4) fL [place] # (Auto) (0.11-0.59) K/uL PT (9.0-12.0) Seconds INR (0.9-1.1) APTT (21.0-31.0) Seconds Chloride 116 H (98-107) mmol/L Calcium 7.3 L D (8.5-10.1) mg/dl Total Bilirubin 1.4 H (0.2-1) mg/dl AST (15-37) U/L Alkaline Phosphatase 189 H (45-117) U/L Total Protein 5.4 L D (6.4-8.2) gm/dl Albumin 2.3 L (3.4-5.0) gm/dl Globulin (2.5-4.0) gm/dl Albumin/Globulin Ratio 0.7 L (0.9-2) Lipase (73-393) U/L Urine pH (4.5-7.5) Ur Specific [place] (1.000-1.030) Ur Leukocyte Esterase (Negative) U Epithel Cells (Auto) (0-5) /lpf Diagnostic Findings ABDOMEN AND PELVIS CT WITH IV CONTRAST CT DOSE: 343.67 mGy.cm HISTORY: epigastric pain s/p ercp TECHNIQUE: Multiaxial CT images of the abdomen and pelvis were performed following the use of intravenous contrast. A dose lowering technique was utilized adhering to the principles of ALARA. COMPARISON STUDY: Abdomen and pelvis CT 10/04/2015. FINDINGS: The lung bases are essentially clear. No pneumoperitoneum. No pneumatosis. Bilateral L5 spondylolysis with associated spondylitic the cysts. Distended and fluid-filled stomach and proximal to mid small bowel. Focal transition point within the midabdomen on image 233 at the level of the distal jejunum. Therefore, this is consistent with a small bowel obstruction. The transition point may be secondary to an adhesion. The distal small bowel is decompressed. Nodular contour to the liver consistent with cirrhosis. Stable 7 mm hypodense lesion within the hepatic dome. This is too small to characterize but favors a cyst. Evidence for prior TIPS procedure. The shunt is patent. There is a 1 cm stone in the gallbladder neck. No inflammatory change adjacent to the gallbladder. Mild gallbladder wall thickening may be due to the patient's cirrhosis. The main portal vein is patent. No retroperitoneal lymphadenopathy. The spleen is mildly enlarged. This is similar to the prior study. The kidneys are unremarkable. No hydronephrosis. Normal adrenal glands. Multiple calcifications at the pancreatic head consistent with chronic pancreatitis. No peripancreatic inflammatory change to suggest acute pancreatitis at this time. The bladder is unremarkable. The uterus is surgically absent. Colonic diverticulosis. No evidence for diverticulitis. Pelvic sidewall surgical clips are noted. No bowel wall thickening. Normal appendix. IMPRESSION: 1. Small bowel obstruction with a focal transition point within the midabdomen at the level of the distal jejunum. This may be secondary to an adhesion. 2. Cirrhotic liver with splenomegaly. Evidence for prior TIPS procedure. This shunt is patent. 3. Cholelithiasis. Mild gallbladder wall thickening may be due to the underlying cirrhosis. No adjacent inflammatory change. 4. Chronic pancreatitis. No CT evidence for acute pancreatitis. 5. Colonic diverticulosis. No evidence for diverticulitis. 6. Normal appendix.
--- NOTE | 2018-07-28 13:35 | Family Medicine Progress Note ---
Date of Service July 28, 2018 Assessment & Plan (1) Small bowel obstruction: NPO, but handling secretions without NG and has been tolerating sips of water this afternoon. Will try clear fluid diet tonight and can advance as tolerated (2) Varices of esophagus determined by endoscopy: She states that during recent ERCP it was noted that varices appeared stable per patient. She denies any hematemesis. (3) S/P ERCP: performed on Sunday, two days ago 07/26/[address] Jensen [facility] - Patient was requesting consult from [facility] Impression: - The common bile duct was dilated. - A biliary sphincterotomy was performed. - The biliary tree was swept and sludge was found. Recommendation: - Discharge patient to home (ambulatory). - Continue present medications. - Refer to a surgeon at appointment to be scheduled (4) Splenomegaly: (5) GERD (gastroesophageal reflux disease): Protonix 40mg IV qday ordered (6) Gall stones: Patient reports that she has a gallstone in gallbladder near cystic duct (7) Cirrhosis: denies any current alcohol use - hold lactulose 15ml po qam for NPO status - can restart thiamine and other home vitamins once tolerating diet (8) Asthma: continue with home Albuterol inhaler 2 puffs INH q6H PRN Stable, has not needed to use inhaler for any exacerbations recently (9) Peripheral neuropathy: Holding home Gabapentin 600mg PO TID for NPO status secondary to SBO. Supervising Physician Co-Signing Physician Notes I saw and examined the patient independently. I discussed the plan of care with the resident with the following summary/exceptions: 53yo F w/ hx of cirrhosis & s/p ERCP who presents for SBO. Today, she is doing great. No further nausea, no vomiting. Abdominal pain has resolved. Would like to eat. 1) SBO - Seen on CT a/p on 07/27 with transition point at the distal jejunum. Improving significantly. Will advance to sips/chips and clears for dinner. 2) Cirrhosis - S/p TIPS. Appears well-compensated. No signs of bleeding or ascites. Given advancing diet, will continue oral meds. 3) Asthma - No breathing concerns. Subjective Nereida states she refused the Nasogastric tube. She states her abdominal pain has improved and is helped with analgesics. She states she has not had any previous episodes of a bowel obstruction. She states she has had mild nausea and has not had any vomiting. She denies fever, chills, chest pain, shortenss of breath. Physical Exam Vital Signs (Past 24 Hours): Last Vital Signs Temp 37 C 07/28/18 07:19 Pulse 64 07/28/18 07:19 Resp 16 07/28/18 07:19 BP 117/73 07/28/18 07:19 Pulse Ox 94 07/28/18 07:19 Constitutional: WD/WN, vitals as above cooperative sitting on side of bed, appears mildly uncomfortable Eyes: EOM intact bilaterally Neck: normal visual inspection and trachea midline Respiratory: normal respiratory effort, lungs clear to auscultation Cardiovascular: Rate/Rhythm: regular rate and regular rhythm Extremities: no edema Gastrointestinal (Abdomen): Inspection/Auscultation: normal bowel sounds; abdomen not distended and caput medusae absent Percussion/Palpation: abdomen soft; abdomen nontender appreciated bowel sounds in all four quadrants; central linear old well healed midlline surgical scar Musculoskeletal: Head/Neck/Chest: normocephalic and head atraumatic Skin: no rashes, warm and dry Neurologic: moves all extremities and awake Psychiatric: Orientation: alert and oriented x 3 Affect: + anxious affect Results & Data Laboratory Results Laboratory Results - last 24 hr 07/27/18 07/27/18 07/27/18 18:30 18:30 18:30 WBC 5.95 RBC 4.39 Hgb 15.2 Hct 42.4 MCV 96.6 MCH 34.6 H MCHC 35.8 RDW Std Deviation 51.5 H RDW Coeff of Carolyn 14.7 H Plt Count 65 L MPV 12.0 H Immature Gran % (Auto) 0.2 Neut % (Auto) 54.3 Lymph % (Auto) 32.4 [place] % (Auto) 10.8 Eos % (Auto) 2.0 Baso % (Auto) 0.3 Immature Gran # (Auto) 0.01 Neut # (Auto) 3.23 Lymph # (Auto) 1.93 [place] # (Auto) 0.64 H Eos # (Auto) 0.12 Baso # (Auto) 0.02 RBC Morphology PT 14.0 H INR 1.4 H APTT PTT Ratio Sodium 142 Potassium 3.9 Chloride 107 Carbon Dioxide 28 Anion Gap 7.0 BUN 11 D Creatinine 0.68 Est Cr Clr Drug Dosing 106.4 Est GFR ( Amer) 116.6 Est GFR (Non-Af Amer) 100.6 BUN/Creatinine Ratio 16.1 Glucose 99 Calcium 8.6 Total Bilirubin 2.3 H AST 50 H ALT 32 Alkaline Phosphatase 261 H Troponin I < 0.015 Total Protein 7.4 Albumin 3.3 L Globulin 4.1 H Albumin/Globulin Ratio 0.8 L Lipase 46 L Urine Color Urine Appearance Urine pH Ur Specific [place] Urine Protein Urine Glucose (UA) Urine Ketones Urine Blood Urine Nitrite Urine Bilirubin Urine Urobilinogen Ur Leukocyte Esterase Urine WBC (Auto) Urine RBC (Auto) U Hyaline Cast (Auto) U Epithel Cells (Auto) Urine Bacteria (Auto) 07/27/18 07/28/18 07/28/18 19:43 06:24 06:24 WBC 4.60 L RBC 3.59 L Hgb 12.0 D Hct 35.0 L MCV 97.5 MCH 33.4 MCHC 34.3 RDW Std Deviation 54.0 H RDW Coeff of Carolyn 15.2 H Plt Count 49 L MPV 11.6 H Immature Gran % (Auto) 0.2 Neut % (Auto) 42.1 Lymph % (Auto) 43.0 [place] % (Auto) 11.3 Eos % (Auto) 3.0 Baso % (Auto) 0.4 Immature Gran # (Auto) 0.01 Neut # (Auto) 1.93 Lymph # (Auto) 1.98 [place] # (Auto) 0.52 Eos # (Auto) 0.14 Baso # (Auto) 0.02 RBC Morphology Unremarkable PT 15.5 H INR 1.6 H APTT 41.3 H PTT Ratio 1.5 Sodium Potassium Chloride Carbon Dioxide Anion Gap BUN Creatinine Est Cr Clr Drug Dosing Est GFR ( Amer) Est GFR (Non-Af Amer) BUN/Creatinine Ratio Glucose Calcium Total Bilirubin AST ALT Alkaline Phosphatase Troponin I Total Protein Albumin Globulin Albumin/Globulin Ratio Lipase Urine Color Yellow Urine Appearance Clear Urine pH 8.0 H Ur Specific [place] 1.039 H Urine Protein Negative Urine Glucose (UA) Negative Urine Ketones Negative Urine Blood Negative Urine Nitrite Negative Urine Bilirubin Negative Urine Urobilinogen Negative Ur Leukocyte Esterase Trace H Urine WBC (Auto) 1-5 Urine RBC (Auto) 0-4 U Hyaline Cast (Auto) 0 U Epithel Cells (Auto) 20-30 H Urine Bacteria (Auto) Negative 07/28/18 06:24 WBC RBC Hgb Hct MCV MCH MCHC RDW Std Deviation RDW Coeff of Carolyn Plt Count MPV Immature Gran % (Auto) Neut % (Auto) Lymph % (Auto) [place] % (Auto) Eos % (Auto) Baso % (Auto) Immature Gran # (Auto) Neut # (Auto) Lymph # (Auto) [place] # (Auto) Eos # (Auto) Baso # (Auto) RBC Morphology PT INR APTT PTT Ratio Sodium 143 Potassium 4.3 Chloride 116 H Carbon Dioxide 21 Anion Gap 6.0 BUN 12 Creatinine 0.65 Est Cr Clr Drug Dosing 111.0 Est GFR ( Amer) 118.3 Est GFR (Non-Af Amer) 102.1 BUN/Creatinine Ratio 18.3 Glucose 92 Calcium 7.3 L D Total Bilirubin 1.4 H AST 35 ALT 22 Alkaline Phosphatase 189 H Troponin I Total Protein 5.4 L D Albumin 2.3 L Globulin 3.1 Albumin/Globulin Ratio 0.7 L Lipase Urine Color Urine Appearance Urine pH Ur Specific [place] Urine Protein Urine Glucose (UA) Urine Ketones Urine Blood Urine Nitrite Urine Bilirubin Urine Urobilinogen Ur Leukocyte Esterase Urine WBC (Auto) Urine RBC (Auto) U Hyaline Cast (Auto) U Epithel Cells (Auto) Urine Bacteria (Auto) Diagnostic Findings ABDOMEN AND PELVIS CT WITH IV CONTRAST = 07/27/2018 1. Small bowel obstruction with a focal transition point within the midabdomen at the level of the distal jejunum. This may be secondary to an adhesion. 2. Cirrhotic liver with splenomegaly. Evidence for prior TIPS procedure. This shunt is patent. 3. Cholelithiasis. Mild gallbladder wall thickening may be due to the underlying cirrhosis. No adjacent inflammatory change. 4. Chronic pancreatitis. No CT evidence for acute pancreatitis. 5. Colonic diverticulosis. No evidence for diverticulitis. 6. Normal appendix. Pre review of prior EMR 07/26/2018 Impression: - The common bile duct was dilated. - A biliary sphincterotomy was performed. - The biliary tree was swept and sludge was found. Recommendation: - Discharge patient to home (ambulatory). - Continue present medications. - Refer to a surgeon at appointment to be scheduled Medications Administered Pantoprazole Sodium 40 mg/ (Syringe) 10 mls @ 5 mls/min IV DAILY@1100 IBIS Stop: 08/27/18 10:59 Last Admin: 07/28/18 11:10 Dose: 5 mls/min Documented by: [id number] Potassium Chloride/Sodium Chloride (Normal Saline W/20 Meq Kcl) 20 meq in 1,000 mls @ 100 mls/hr IV .Q10H IBIS Stop: 08/27/18 00:00 Last Admin: 07/28/18 11:09 Dose: 100 mls/hr Documented by: [id number] Infusion: 07/28/18 11:09 Dose: 0 mls/hr Documented by: [id number] Admin: 07/28/18 00:16 Dose: 100 mls/hr Documented by: [id number] Ioversol (Optiray 320 100ml) 94 ml IV ONCE PRN PRN Reason: Interaction Checking Stop: 07/31/18 18:50 Last Admin: 07/27/18 18:52 Dose: 94 ml Documented by: [id number] Morphine Sulfate (Morphine Sulfate) 4 mg IV Q3H PRN PRN Reason: Pain Stop: 08/10/18 23:14 Last Admin: 07/28/18 08:19 Dose: 4 mg Documented by: [id number] Ondansetron HCl (Zofran) 4 mg IV Q6H PRN PRN Reason: NAUSEA/VOMITING Stop: 08/26/18 23:14 Last Admin: 07/28/18 08:19 Dose: 4 mg Documented by: [id number]
[2018-07-29 06:16] LABS: Hematocrit (blood only) 34.7 % (37-47); Mean Corpuscular Hgb Conc 34.6 g/dL (32-36); Mean Corpuscular Volume 97.2 fL (80-100); RDW Coefficient of Variation 14.6 % (11.5-14.5); Red Blood Count 3.57 M/uL (4.2-5.4); White Blood Count 3.73 K/uL (4.8-10.8)
[2018-07-29 06:28] LABS: Mean Platelet Volume 11.8 fL (7.4-10.4); Platelet Count 44 K/uL (130-400)
[2018-07-29 06:32] LABS: INR 1.6 (0.9-1.1); Prothrombin Time 15.8 Seconds (9.0-12.0)
[2018-07-29 06:50] LABS: Albumin Level 2.3 gm/dl (3.4-5.0); BUN Creatinine Ratio 15.3 (10-20); Calcium 7.7 mg/dl (8.5-10.1); Creatinine Clr Calc Pharmacy 136.2 ml/min; Est GFR (African American) 126.5; Est GFR (Non-African American) 109.2; Magnesium 1.6 mg/dl (1.8-2.4); Potassium 4.3 mmol/L (3.5-5.1)
[2018-07-29 06:53] LABS: Albumin Globulin Ratio 0.8 (0.9-2); Bilirubin,Total 1.4 mg/dl (0.2-1); Total Protein 5.3 gm/dl (6.4-8.2)
[2018-07-29 07:01] LABS: Basophils # (auto) 0.02 K/uL (0-0.2); Basophils % (auto) 0.5 %; Eosinophils # (auto) 0.16 K/uL (0-0.5); Eosinophils % (auto) 4.3 %; Lymphocytes # (auto) 2.15 K/uL (1.2-3.4); Lymphocytes % (auto) 57.6 %; Monocytes # (auto) 0.35 K/uL (0.11-0.59); Monocytes % (auto) 9.4 %; Neutrophils # (auto) 1.05 K/uL (1.4-6.5); Neutrophils % (auto) 28.2 %
[2018-07-29] MEDS: NSS + 20MEQ KCL 20 MEQ/1,000 ML BAG IV SCH (07:49)
[2018-07-29] MEDS: PANTOprazole 40 MG in SYRINGE 0 ML IV SCH (10:57)
--- NOTE | 2018-07-29 14:38 | Discharge Summary ---
Date of Service July 29, 2018 Admission HPI Per Admitting Provider The patient is a 53-year-old female with a past medical history including cirrhosis, esophageal varices, splenomegaly, status post TIPS, status post ERCP yesterday with sphincterotomy by Dr. Jensen who awoke this morning with severe abdominal pain as noted above and presents to the emergency department due to its persistence. Workup in the ED included a CT of abdomen and pelvis, which showed a small bowel obstruction with focal transition in the mid abdomen distal jejunum area along with cirrhosis, splenomegaly, cholelithiasis and chronic pancreatitis. Principal Diagnosis Small Bowel Obstruction Discharge Exam Subjective Exam: Pt was seen and examined at bedside. No acute overnight events. Pt tolerating her liquid diet. Hopes to go home today. ROS: No chest pain, no SOB, no dyspnea on exertion, no palpitations, no fevers, no chills, no nausea, no vomiting, no diarrhea, no dysuria, no rash. Constitutional WD/WN, vitals as above well developed, well nourished and cooperative Eyes EOM intact bilaterally Neck normal visual inspection and trachea midline Respiratory normal respiratory effort, lungs clear to auscultation Cardiovascular RRR, no murmur, no edema Rate/Rhythm: regular rate and regular rhythm Heart Sounds: normal S1 and normal S2 Extremities: no edema Gastrointestinal (Abdomen) normal bowel sounds, soft, nontender, no hepatosplenomegaly Inspection/Auscultation: abdomen not distended and caput medusae absent Musculoskeletal Head/Neck/Chest: normocephalic and head atraumatic Skin no rashes, warm and dry Neurologic moves all extremities and awake Psychiatric Orientation: alert and oriented x 3 Discharge Data Allergies Allergy/AdvReac Type Severity Reaction Status Date / Time Cipro Allergy Unknown RASH Unverified 10/04/15 12:51 ciprofloxacin Allergy Unknown RASH Verified 07/27/18 19:13 rifaximin [From Xifaxan] Allergy Unknown Rash Verified 07/27/18 19:13 Consultations 07/27/18 19:45 ED Decision to Admit Stat 07/27/18 22:39 Consult Case Management - Discharge Planning Routine 07/28/18 11:04 Consult General Surgery Routine 07/28/18 15:09 Consult Gastroenterology Routine Ordered Studies 07/27/18 18:06 CT abd pelvis IV con only Stat Hospital Course (1) Small bowel obstruction: Pt was admitted in the evening of 07/27/18 for SBO. She was made NPO. Her HPI is significant for ERCP 1 day prior to arrival. Pt's diet was advanced on 07/28/18 and pt tolerated clear liquid and full liquid on 07/29/18 with discharge instructions that included small meals and progress gradually. No NG tube was inserted at pt's discretion. Pt did not require pain medications for a full 24hrs prior to discharge. (2) Varices of esophagus determined by endoscopy: She states that during recent ERCP it was noted that varices appeared stable per patient. She denies any hematemesis. (3) S/P ERCP: performed on Sunday, two days ago 07/26/[address] Jensen [facility] Impression: - The common bile duct was dilated. - A biliary sphincterotomy was performed. - The biliary tree was swept and sludge was found. Recommendation: - Discharge patient to home (ambulatory). - Continue present medications. - Refer to a surgeon at appointment to be scheduled (4) Splenomegaly: (5) GERD (gastroesophageal reflux disease): Protonix 40mg IV qday ordered (6) Gall stones: Patient reports that she has a gallstone in gallbladder near cystic duct (7) Cirrhosis: denies any current alcohol use - hold lactulose 15ml po qam for NPO status - can restart thiamine and other home vitamins once tolerating diet (8) Asthma: continue with home Albuterol inhaler 2 puffs INH q6H PRN Stable, has not needed to use inhaler for any exacerbations recently (9) Peripheral neuropathy: Holding home Gabapentin 600mg PO TID for NPO status secondary to SBO. Total Time Total Time Spent Total Time Spent (In Minutes): 31 Discharge Plan Discharge Items Patient Disposition: Home - Self-Care Reason For Visit: SBO Discharge Diagnosis: Small Bowel Obstruction Discharge Goals: Improve function, Increase independence, Improve nutritional status and Learn about illness Activity: Per 'Additional Instructions' section Non-emergency contact: Primary Care Provider and [employer] Call non-emergency contact if: you have any medication questions, your symptoms worsen and your pain is not controlled Follow-up/Referrals: Linn Khanna MD [Primary Care Provider] - Diet: Regular and See below Addtl Provider Instructions: You were admitted to the hospital for a small bowel obstruction. It's difficulty to pinpoint exactly why this happened. You tolerated a regular diet without vomiting. Please continue to eat small meals. Information on small bowel obstructions will be printed for you on discharge. Please read this information carefully. Return to the ER if you symptoms dramatically worsen and you are unable to tolerate food or fluids. You may resume your regular medications on discharge. Prescriptions: Continued vitamin A 8,000 unit Capsule 8,000 units PO QPM RF: 0 gabapentin [Neurontin] 600 mg Tablet 600 mg PO TID RF: 0 thiamine HCl (vitamin B1) 250 mg Tablet 250 mg PO QPM RF: 0 pantoprazole 40 mg Tablet,Delayed Release (Dr/Ec) 40 mg PO DAILY PRN (Reason: Acid Reflux) RF: 0 albuterol sulfate [ProAir HFA] 90 mcg/actuation Hfa Aerosol Inhaler 2 puff INHALATION Q6H PRN (Reason: Wheezing) RF: 0 vitamin E 400 unit Capsule 400 units PO QPM RF: 0 cholecalciferol (vitamin D3) [Vitamin D3] 1,000 unit Capsule 1,000 units PO QPM RF: 0 lactulose [Generlac] 10 gram/15 mL Solution 15 ml PO QAM RF: 0 diclofenac sodium 75 mg tablet,delayed release (DR/EC) 75 mg PO BID PRN (Reason: Pain) RF: 0 Stand-Alone Forms: Call Back Authorization, [facility]/Other Patient Handouts: Obstruction Sm Bowel Discharge Orders: Discharge Order (Routine); Ordered 07/29/18 Ordered By: Arslan Childress Admission Data Admit Date/Time: 07/27/18 21:35 Attending Provider: Linn Khanna Admit Provider: Ernie Licona Primary Care Provider: Linn Khanna Other Providers: Gopal Bartlett ; Christy Fatima Joel B Service: Medical Other Interventions: Discharge Summary Assessment (RN) Last Done: 07/29/18 14:01 DC Date/Time DO NOT enter until pt leaves facility: 07/29/18 15:08 Supervising Physician Co-Signing Physician Notes Resident Physician Supervision Note: I independently interviewed and examined the patient and verified the prado history and physical, reviewed labs and image studies, discussed the case with the resident Dr. Childress and agree with the findings and care plan. Time spent in discharge 35 min Resident Activity Tracking Resident Involvement: Resident Care Provided Care Provided: Adult [facility]
== END 2018-07-29 15:08 | disposition home or self-care (01) | DRG 389 ==
LOC: ED 17:22 → 3W 21:35 → SUATTDRO 21:35 → 3W 22:14